=== PATIENT | female | born 1955 | race Caucasian/White ===

== ENCOUNTER → 2019-01-31 | Day surgery (SDC) | payer OTHER ==
[~2019-01-31] MED LIST: AMBIEN10 MG PO; BUPIVACAINE 0.25% 30ML SDV INJ ONE; CALCIUM500 MG PO; FENTANYL CITRATE/PF 100MCG/2 ML INJ ONE; IOPAMIDOL 200 MG/ML 20 ML VIAL IT ONE; LIDOCAINE HCL 1% 30ML-PF VIAL ONE; MIDAZOLAM HCL 2 MG/2 ML VIAL ONE; OXYCODONE-ACET1 EAC3 PO; PERCOCET; PREMARIN0.625 MG PO; PROPOFOL IV EMULSION 10 MG/ML 20 ML VIAL ONE; REMERON30 MG PO; SYNTHROID75 MCG PO; TOPIRAMATE50 MG PO; ULTRAM50 MG PO; VIIBRYD10 MG PO; VITAMIN D35000 UNIT PO; VITAMIN E1000 UNI1 PO; XANAX0.5 MG PO
--- OUTSIDE RECORDS SUMMARY | 2019-01-31 05:27 | XMS REPORT | Clinical Summary ---
Author Author [facility] Address Unknown Phone Unavailable Care Team Providers Care Software Systems Architect Name Role Phone Asked, No Pcp PCP Unavailable Allergies Comments Active Allergy Reactions Severity Noted Date Does not work; hallucinate Morphine High 06/01/2018 Medications End Date Status Medication Sig Dispensed Refills Start Date Active carisoprodol (SOMA) 350 0 MG tablet 8 Active PREMARIN 0.625 mg tablet 0 8 Active fluconazole (DIFLUCAN) 0 150 MG tablet 8 Active levothyroxine (SYNTHROID, 0 LEVOXYL) 75 mcg tablet 8 Active metFORMIN XR 0 (GLUCOPHAGE-XR) 500 mg 24 8 hr tablet Active mirtazapine (REMERON) 30 0 MG tablet 8 Active NUCYNTA 50 mg tablet 0 8 Active zolpidem (AMBIEN) 10 mg 0 tablet 8 Active traMADol (ULTRAM) 50 mg 0 tablet 8 Active topiramate (TOPAMAX) 50 0 MG tablet 8 Active buPROPion XL (WELLBUTRIN 0 XL) 150 MG 24 hr tablet 8 Active LORAZepam (ATIVAN) 0.5 MG 0 tablet 8 Active lidocaine (XYLOCAINE) 5 % APPLY 1 TO 2 0 ointment GRAMS THE 8 AFFECTED AREA(S) 3 TO 4 TIMES A DAY Active diflorasone (PSORCON) APPLY 1.5-2 0 0.05 % ointment GRAMS TWICE A 8 DAY TO THE AFFECTED AREA(S) Active diclofenac (VOLTAREN) 1 % APPLY A PEA 0 gel SIZED 8 AMOUNT(0.5 GRAMS) TO THE AFFECTED AREA TWICE DAILY DIRECTED Active hydroCHLOROthiazide See 0 (HYDRODIURIL) 12.5 MG Instructions, 8 tablet TAKE 1 TABLET BY MOUTH DAILY, # 90 tab, 2 Refill(s), Pharmacy: [facility] Active mirtazapine (REMERON) 30 See 0 MG tablet Instructions, 8 TAKE 2 TABLETS BY MOUTH AT BEDTIME, # 180 tab, 2 Refill(s), Pharmacy: [facility] Active topiramate (TOPAMAX) 50 50 mg=1 tab, 0 MG tablet PO, BID, # 8 180 tab, 1 Refill(s), Pharmacy: [facility] Active zolpidem (AMBIEN) 10 mg 10 mg=1 tab, 0 tablet PO, Bedtime, 8 PRN for sleep, X 90 day, # 90 tab, 1 Refill(s) Active ALPRAZolam (XANAX) 0.5 MG 0 tablet 8 Active FLUoxetine (PROzac) 10 MG 0 capsule 8 Active LORAZepam (ATIVAN) 1 MG 0 tablet 8 Active oxyCODone-acetaminophen 0 (PERCOCET) 10-325 mg per 8 tablet Active keTOROlac (TORadol) 10 mg Take one 20 tablet 0 tablet tablet Q6h x 8 5 days. D/C if stomach pain. Take with food 06/11/2018 Discontinued keTOROlac (TORadol) 10 mg 0 tablet 8 06/11/2018 Discontinued oxyCODone-acetaminophen 0 (PERCOCET) 7.5-325 mg per 8 tablet 06/11/2018 Discontinued oxyCODone-acetaminophen 0 (PERCOCET) 10-325 mg per 8 tablet 06/07/2018 Discontinued keTOROlac (TORadol) 10 mg Take one 20 tablet 0 tablet tablet Q6h x 8 5 days. D/C if stomach pain. Take with food 06/12/2018 Discontinued keTOROlac (TORadol) 10 mg Take one 20 tablet 0 tablet tablet Q6h x 8 5 days. D/C if stomach pain. Take with food 06/21/2018 oxyCODone-acetaminophen Take 1 tablet 30 tablet 0 (PERCOCET) 10-325 mg per by mouth 8 tablet every 4 (four) hours as needed for moderate pain for up to 10 days. Max Daily Amount: 6 tablets 06/26/2018 carisoprodol (SOMA) 350 Take 1 tablet 30 tablet 0 MG tablet (350 mg 8 total) by mouth 3 (three) times a day as needed for muscle spasms for up to 14 days. Active Problems Problem Noted Date Arthrofibrosis of knee joint, left 09/04/2018 Reactive depression 07/13/2018 S/P knee surgery 06/07/2018 Left anterior cruciate ligament tear 06/01/2018 Tear of PCL (posterior cruciate ligament) of knee, left, initial encounter 06/01/2018 Tear of MCL (medial collateral ligament) of knee, left, initial encounter 06/01/2018 Tear of medial meniscus of left knee, current 06/01/2018 Dislocation of left patella 06/01/2018 Encounters Care Team Description Date Type Specialty Mayank Pearson MD S/P knee surgery (Primary Dx); Reactive depression; Arthrofibrosis of knee joint, left; Rupture of anterior cruciate ligament of left knee, subsequent encounter; Tear of PCL (posterior cruciate ligament) of knee, left, initial encounter; Complete tear of medial collateral ligament of knee, left, subsequent encounter; Complex regional pain syndrome type 2 of left lower extremity 01/29/2019 Office Visit Orthopedic Surgery Mayank Pearson MD S/P knee surgery (Primary Dx); Rupture of anterior cruciate ligament of left knee, subsequent encounter; Tear of MCL (medial collateral ligament) of knee, left, initial encounter; Tear of PCL (posterior cruciate ligament) of knee, left, initial encounter; Dislocation of left patella, subsequent encounter; Arthrofibrosis of knee joint, left 12/11/2018 Office Visit Orthopedic Surgery Harrison Cordova PA-C Arthrofibrosis of knee joint, left (Primary Dx); S/P knee surgery; Rupture of anterior cruciate ligament of left knee, subsequent encounter; Tear of PCL (posterior cruciate ligament) of knee, left, subsequent encounter; Tear of MCL (medial collateral ligament) of knee, left, subsequent encounter 10/09/2018 Office Visit Orthopedic Surgery Harrison Cordova PA-C S/P knee surgery (Primary Dx); Arthrofibrosis of knee joint, left; S/P ACL reconstruction 09/21/2018 Office Visit Orthopedic Surgery Harrison Cordova PA-C 09/10/2018 Orders Only Orthopedic Surgery Harrison Cordova PA-C 09/07/2018 Orders Only Orthopedic Surgery Mayank Pearson MD S/P knee surgery (Primary Dx); Arthrofibrosis of knee joint, left; Rupture of anterior cruciate ligament of left knee, subsequent encounter; Tear of MCL (medial collateral ligament) of knee, left, initial encounter; Tear of PCL (posterior cruciate ligament) of knee, left, initial encounter; Dislocation of left patella, subsequent encounter 09/04/2018 Office Visit Orthopedic Surgery Mayank Pearson MD Rupture of anterior cruciate ligament of left knee, subsequent encounter (Primary Dx); Rupture of posterior cruciate ligament of left knee, subsequent encounter; Tear of medial collateral ligament of left knee, subsequent encounter; Other tear of medial meniscus of left knee as current injury, subsequent encounter; Dislocation of left patella, subsequent encounter 08/07/2018 Office Visit Orthopedic Surgery Mayank Pearson MD S/P knee surgery (Primary Dx); Tear of PCL (posterior cruciate ligament) of knee, left, initial encounter; Other tear of medial meniscus of left knee as current injury, subsequent encounter; Rupture of anterior cruciate ligament of left knee, subsequent encounter; Tear of MCL (medial collateral ligament) of knee, left, initial encounter 07/13/2018 Office Visit Orthopedic Surgery Harrison Cordova PA-C 07/05/2018 Orders Only Orthopedic Surgery Harrison Cordova PA-C 07/02/2018 Refill Orthopedic Surgery Harrison Cordova PA-C Lintner, David M., MD S/P knee surgery (Primary Dx); Rupture of anterior cruciate ligament of left knee, subsequent encounter; Tear of MCL (medial collateral ligament) of knee, left, initial encounter; Tear of PCL (posterior cruciate ligament) of knee, left, initial encounter; Other tear of medial meniscus of left knee as current injury, subsequent encounter 06/26/2018 Office Visit Orthopedic Surgery Mayank Pearson MD 06/25/2018 Refill Orthopedic Surgery Harrison Cordova PA-C Rupture of anterior cruciate ligament of left knee, subsequent encounter (Primary Dx); S/P ACL reconstruction; Other tear of medial meniscus of left knee as current injury, subsequent encounter; Dislocation of left patella, subsequent encounter; Tear of MCL (medial collateral ligament) of knee, left, subsequent encounter; Tear of PCL (posterior cruciate ligament) of knee, left, subsequent encounter 06/12/2018 Office Visit Orthopedic Surgery Harrison PA-C 06/11/2018 Orders Only Orthopedic Surgery Robb Palma MD 06/07/2018 Anesthesia Orthopedic Surgery Event Mayank Pearson MD LEFT KNEE ARTHROSCOPY, MCL REPAIR, ACL RECONSTRUCTION, PCL REPAIR, MPFL REPAIR, MEDIAL MENICUS REPAIR 06/07/2018 Surgery Orthopedic Surgery Mayank Pearson MD S/P knee surgery (Primary Dx) 06/07/2018 Hospital Orthopedic Surgery - Encounter 06/11/2018 Harrison Cordova PA-C 06/07/2018 Orders Only Orthopedic Surgery Harrison Cordova PA-C 06/07/2018 Orders Only Orthopedic Surgery Mayank Pearson MD 06/01/2018 Hospital Radiology Encounter Mayank Pearson MD Rupture of anterior cruciate ligament of left knee, initial encounter (Primary Dx); Tear of PCL (posterior cruciate ligament) of knee, left, initial encounter; Tear of MCL (medial collateral ligament) of knee, left, initial encounter; Other tear of medial meniscus of left knee as current injury, initial encounter; Dislocation of left patella, initial encounter 06/01/2018 Office Visit Orthopedic Surgery after 01/30/2018 Social History Date Tobacco Use Types Packs/Day Years Used Never Smoker Smokeless Tobacco: Never Used Sex Assigned at Date Recorded Not on file Industry Job Start Date Occupation Not on file Not on file Not on file Travel End Travel History Travel Start No recent travel history available. Last Filed Vital Signs Time Taken Vital Sign Reading 06/11/2018 7:53 AM CDT Blood Pressure 135/69 06/11/2018 7:53 AM CDT Pulse 64 06/11/2018 7:53 AM CDT Temperature 36.5 C (97.7 F) 06/11/2018 7:53 AM CDT Respiratory Rate 16 06/11/2018 7:53 AM CDT Oxygen Saturation 97% - Inhaled Oxygen - Concentration 06/01/2018 8:42 AM CDT Weight 77.1 kg (170 lb) 06/07/2018 8:10 AM CDT Height 157.5 cm (5' 2") 06/01/2018 8:42 AM CDT Body Mass Index 31.09 Plan of Treatment Care Team Description Date Type Specialty Mayank Pearson MD [address] [id number] Edita Cid 02/04/2019 Office Visit Physical Therapy Mayank Pearson MD [address] [address] [phone] Edita Cid 02/08/2019 Office Visit Physical Therapy Mayank Pearson MD [address] [address] [phone] Edita Cid 02/11/2019 Office Visit Physical Therapy Mayank Pearson MD [address] [address] [phone] Edita Cid 02/15/2019 Office Visit Physical Therapy Mayank Pearson MD [address] [address] [phone] Edita Cid 02/22/2019 Office Visit Physical Therapy Health Maintenance Due Date Last Done Comments CERVICAL CANCER SCREENING 01/12/1977 BREAST CANCER SCREENING 01/12/2006 COLON CANCER SCREENING 01/12/2006 SHINGLES VACCINES (#1) 01/12/2006 INFLUENZA VACCINE 04/25/2019 Implants Device Identifier Shelf Expiration Date Model / Serial / Lot Implanted Type Area Manufactur er 10/16/2022 [id number] / [id number] / LOT NA Tendon Achls Allograft Leader W/ Human Left: Knee MUSCULOSKE Clcns 19.5-38cm 10-20mm - Tissue LETAL [id number] - [id number] Implants TRANSPLANT Implanted: Qty: 1 on 06/07/2018 by [facility] Mayank Pearson MD 02/22/2023 AR [id number] / / [id number] Suture [place], [employer]w - IPM Left: Knee ARTHREX [id number] IMPLANT ORTHOPEDIC Implanted: Qty: 1 on 06/07/2018 by DEVICES S Mayank Pearson MD 10/18/2022 [id number] / / [id number] Screw Intrfrnce Plla Cordova 7x20mm Orthopedic Left: Knee ORDONEZ AND Biosure - [id number] Trauma NEPHEW Implanted: Qty: 1 on 06/07/2018 by Implants ENDOSCOPY Mayank Pearson MD 09/24/2019 AR [id number] / / [id number] Suture [place] Dbl Loaded Biocomp Orthopedic Left: Knee ARTHREX Swvlk 4.75mm X 22mm - [id number] INC Implanted: Qty: 1 on 06/07/2018 by Mayank Mays MD 09/24/2022 AR [id number] / / [id number] Screw Tib 9mm Graftbolt - Orthopedic Left: Knee ARTHREX [id number] INC Implanted: Qty: 1 on 06/07/2018 by Mayank Mays MD Procedures Comments Procedure Name Priority Date/Time Associated Diagnosis XR KNEE 1 OR 2 VW LEFT Routine 06/12/2018 Rupture of anterior 2:06 PM CDT cruciate ligament of left knee, subsequent encounter THYROID STIMULATING Routine 06/08/2018 HORMONE 7:33 PM CDT T4, FREE Routine 06/08/2018 7:33 PM CDT POC GLUCOSE Routine 06/07/2018 1:05 PM CDT WA AN ELECTIVE Routine 06/07/2018 ENDOTRACHEAL AIRWAY 10:13 AM CDT Procedure Note - Robb Boss, INTERNAL CONTROLS ANALYST - 06/07/2018 10:13 AM CDT Airway Date/Time: 06/07/2018 10:00 AM Performed by: ROBB BOSS Authorized by: ROBB PALMA Location: OR Urgency: Elective Difficult Airway: No Anesthesio logist: ROBB PALMA Resident/C RNA/AA: ROBB BOSS Performed by: resident/C RNA/AA Preoxygena tor with 100% O2: Yes Mask Ventilatio n: Easy mask Final Airway Type: Endotrache al airway Final Endotrache al Airway: ETT Cuffed: Yes Technique Used: Direct laryngosco py Devices/Me thods Used in Placement: Intubatin g stylet Insertion Site: Oral Blade Type: Guillaume Laryngosco pe Blade/Vide olaryngosc ope Blade Size: 2 ETT Size (mm): 8.0 Cuff at minimum occlusion pressure: Yes Measured from: Teeth ETT to Teeth (cm): 21 Placement Verified by: CO2 detection, direct visualizat ion and equal breath sounds Laryngosco pic view: Grade I - full view of glottis Rapid Sequence Induction (RSI): No Modified RSI: No Number of Attempts at Approach: 1 ANESTHESIA EPIDURAL BLOCK Routine 06/07/2018 9:09 AM CDT Procedure Note - Robb Palma MD - 06/07/2018 9:09 AM CDT Epidural Block Performed by: ROBB PALMA Authorized by: ROBB PALMA Patient Location: Pre-op Start Time: 06/07/2018 9:00 AM End Time: 06/07/2018 9:06 AM Anesthesio logist: ROBB PALMA Performed by: Anesthesio [email or web address] Preprocedu re: patient identified , IV checked, site and side verified, risks and benefits discussed, procedure verified, surgical consent completed, patient position confirmed, monitors and equipment checked and pre-op evaluation completed Time Out Performed: 06/07/2018 8:56 AM Patient Position: Sitting Prep: Betadine Monitoring : Blood pressure monitoring , continuous pulse oximetry and heart rate Approach: Midline Interspace : L2-3 Injection Technique: RAVEN air Needle Type: Tuohy Needle Gauge: 17 Catheter at Skin Depth: 8 cm Test Dose: Negative and lidocaine 1.5% with epinephrin e 1-to-200,0 00 Number of Attempts: 1 Coagulatio n status: Coagulatio n status reviewed Block Outcome: No apparent complicati ons, patient comfortabl e and patient tolerated procedure well Post-proce dure: Sterile dressing applied Time: 06/07/2018 9:00 AM REPAIR, ACL, 06/07/2018 Complete tear of MCL of ARTHROSCOPIC, USING 9:00 AM CDT knee, left, initial PATELLAR TENDON GRAFT encounter Posterior cruciate tear, left, initial encounter Closed dislocation of left patella, initial encounter Case Notes TF ~ 0845, REQ 0800 START, EST 3HRS, POSSIBLE EXTENDED STAY, "SURG REQ EPIDURAL", @0907 VIA LUKE/PRISCILA SURG START TIME ~ 0845 06/06/18TW Special Needs TF ~ 0845, REQ 0800 START, EST 3HRS, POSSIBLE EXTENDED STAY, "SURG REQ EPIDURAL", ACHILLES ALLOGRAFT, SEMI T ALLOGRAFT POC GLUCOSE Routine 06/07/2018 8:34 AM CDT MRI LOWER EXTREMITY Routine 05/25/2018 EXTERNAL STUDY 2:33 PM CDT after 01/30/2018 Results * XR Knee 1 Or 2 Vw Left (06/12/2018 2:06 PM CDT) Narrative Performed At [facility] Tunnels in good position Performing Organization Address [facility] Number [facility] [address] [place] [address] * Thyroid stimulating hormone (06/08/2018 7:33 PM CDT) TSH 6.05 (H) 0.27 - 4.20 uIU/mL [facility] DEPARTMENT OF PATHOLOGY AND GENOMIC MEDICINE Specimen Plasma specimen Performing Organization Address [facility] [place] [address] PATHOLOGY AND [facility] MEDICINE * T4, free (06/08/2018 7:33 PM CDT) T4, free 1.6 0.9 - 1.7 ng/dL [facility] DEPARTMENT OF PATHOLOGY AND GENOMIC MEDICINE Specimen Plasma specimen Performing Organization Address [facility] [place] [address] PATHOLOGY AND [facility]ICINE * POC glucose (06/07/2018 1:05 PM CDT) Only the most recent of 2 results within the time period is included. POC glucose 173 (H) 65 - 99 mg/dL [facility] DEPARTMENT OF Comment: PATHOLOGY AND [facility] Notified RN GENOMIC MEDICINE Meter ID: [id number] [employer]: [place] Performing Organization Address [facility] [place] [address] PATHOLOGY AND GENOMIC MEDICINE * MRI Lower Extremity External Study (05/25/2018 2:33 PM CDT) Narrative Performed At This exam was not acquired at a [facility] facility and has not been [facility] interpreted by a [facility] Provider.The exam was imported into our imaging system for comparisons purposes. Performing Organization Address City/State/Zipcode Phone Number [facility] [address] [place] [address] after 01/30/2018 Insurance Payer Benefit Subscriber ID Type Phone Address Plan / Group CIGNA CIGNA OPEN xxxxxxxxxxx HMO ACCESS/NET WORK Advance Directives Patient has advance care planning documents on file. For more information, truong gutierrez contact: Carlyle Huang [address] [place] [address]
--- OUTSIDE RECORDS SUMMARY | 2019-01-31 05:28 | XMS REPORT | Summary of Care ---
Author Author [facility] [place] Organization [facility] [place] Address Unknown Phone Unavailable Encounter HQ Merryr_phil(FIN) [id number] Date(s): 06/29/18 - 06/30/18 [facility] [place] [address] [facility] [address] [place] [address]- [phone] Vital Signs No data available for this section Problem List Condition Effective Dates Status Health Status Informant Acute maxillary 07/09/12 Resolved sinusitis1 Acute pharyngitis2 08/26/10 Resolved Acute sinusitis3 09/15/09 Resolved 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 Depressive disorder5 Active Dyslipidemia6 07/17/07 Active Exposure to sexually 08/13/09 Resolved transmissible disorder7 Fatigue8 11/07/13 Active Gastroenteritis9 01/27/09 Resolved Gastroesophageal Active reflux Hematoma(Confirmed) Active Jaw Active hematoma(Confirmed) Hypercholesterolemia 01/05/12 Active 11 Bdlmbfuvdsvcr49 05/28/14 Active Hypertensive 03/30/15 Active Hypertriglyceridemia 03/30/15 Active 14 Hypothyroid(Confirme Active d) Xkvozhtwmfdiqy40 05/13/08 Active Impaired fasting 08/13/09 Active qdkizpomk56 Jktohaqum08 12/09/10 Resolved Injury of hand18 09/22/14 Active Hocawyeu87 05/01/07 Active Long-term drug 05/13/08 Active xbrfhoe93 Malaise and 05/13/08 Active cutidzb71 Menopausal 01/27/09 Active Murmur(Confirmed) Active Obesity(Confirmed) Active Bwqjgsu26 12/07/07 Resolved Staphylococcal 05/13/08 Resolved infectious jofqzhn27 Streptococcal sore 12/07/07 Resolved leotse88 Contusion of Active hip(Confirmed) Upper respiratory 07/17/07 Resolved zbogqgobv46 Urinary tract 12/29/10 Resolved infectious jteuouf67 Nffpjdnv06 12/09/10 Resolved 1Data migrated from [employer] on 04/11/15. 2Data migrated from [employer] on 04/11/15. 3Data migrated from [employer] on 04/11/15. 4Data migrated from [employer] on 02/21/15. 5Data migrated from [employer] on 02/21/15. 6Data migrated from [employer] on 02/21/15. 7Data migrated from [employer] on 04/11/15. 8Data migrated from [employer] on 02/21/15. 9Data migrated from [employer] on 04/11/15. 10Data migrated from [employer] on 02/21/15. 11Data migrated from [employer] on 02/21/15. 12Data migrated from [employer] on 02/21/15. 13Data migrated from [employer] on 04/29/15. 14Data migrated from [employer] on 04/29/15. 15Data migrated from [employer] on 02/21/15. 16Data migrated from [employer] on 02/21/15. 17Data migrated from [employer] on 04/11/15. 18Data migrated from [employer] on 02/21/15. 19Data migrated from [employer] on 02/21/15. 20Data migrated from [employer] on 02/21/15. 21Data migrated from [employer] on 02/21/15. 22Data migrated from [employer] on 02/21/15. 23Data migrated from [employer] on 04/11/15. 24Data migrated from [employer] on 04/10/15. 25Data migrated from [employer] on 04/11/15. 26Data migrated from [employer] on 04/11/15. 27Data migrated from [employer] on 04/11/15. 28Data migrated from [employer] on 04/11/15. Allergies, Adverse Reactions, Alerts Substance Reaction Severity Status morphine1 Active 1Data migrated from [employer] on 01/20/15. Originally documented as MORPHINE. Dermatological problems, e.g., rash, hives ; SOB Medications No data available for this section Results No data available for this section Immunizations Given and Recorded Vaccine Date Status Refusal Reason Hx hepatitis B vaccine1 04/14/10 Given Hx hepatitis B vaccine2 08/14/09 Given diphtheria/pertussis, acel/tetanus adult3 08/13/09 Given tetanus-diphtheria toxoids4 08/13/09 Given pneumococcal 23-valent vaccine 06/15/06 Given 1Result Comment: engerix. Migrated from OBS ; Data migrated from [employer] on 10/26/2015. 2Result Comment: recombivaxhb. Migrated from OBS ; Data migrated from [employer] on 10/26/2015. 3Result Comment: tdap. Migrated from OBS ; Data migrated from [employer] on 10/26/2015. 4Result Comment: tdap. Migrated from OBS VIS: 08-12-08 given August 13, 2009. ; Data migrated from [employer] on 10/26/2015. Procedures Procedure Date Related Diagnosis Body Site Status Breast biopsy and related procedures Completed Cholecystectomy Completed Hysterectomy Completed Laparoscopic sleeve gastrectomy Completed Tonsillectomy Completed Social History Social History Type Response Smoking Status Former smoker; Exposure to Tobacco Smoke None; Cigarette Smoking Last 365 Days No; Reg Smoking Cessation Counseling No entered on: 12/13/18 Assessment and Plan No data available for this section
--- OUTSIDE RECORDS SUMMARY | 2019-01-31 05:28 | XMS REPORT | Continuity of Care Document ---
Author Author [facility] Interface Address Unknown Phone Unavailable Problems Problem Status Onset Date Classification Date Reported Comments Source Other abnormal and inconclusive findings on diagnostic imaging of breast 04/27/2018 11/07/2018 RENETTA Hernandez Encounter for screening mammogram for malignant neoplasm of breast 04/14/2018 10/27/2018 AZUL Horn DX: Z12.31=ENCOUNTER FOR SCREENING MAMMO Active 01/09/2017 [facility] Hypertensive episode<sup>13</sup> Active 03/30/2015 Problem 01/27/2019 Data migrated from [employer] on 04/29/15. [facility], AZUL Horn,[facility] [place] Hypertriglyceridemia<sup>14</sup> Active 03/30/2015 Problem 01/27/2019 Data migrated from [employer] on 04/29/15. [facility], AZUL Horn,[facility], [place] Injury of hand<sup>10</sup> Active 09/22/2014 Problem 04/02/2015 10Data migrated from [employer] on 02/21/15. AZUL Hernandez Injury of hand<sup>18</sup> Active 09/22/2014 Problem 01/27/2019 Data migrated from [employer] on 02/21/15. [facility], AZUL Horn,[facility], OPID [place] Hyperglycemia<sup>7</sup> Active 05/28/2014 Problem 04/02/2015 7Data migrated from [employer] on 02/21/15. AZUL Hernandez Hyperglycemia<sup>12</sup> Active 05/28/2014 Problem 01/27/2019 Data migrated from [employer] on 02/21/15. [facility], AZUL Horn,[facility], AZUL Hernandez ROUTINE Active 02/11/2014 [facility] V76.10 PELVIC PAIN Active 02/11/2014 [facility] UNK Active 11/26/2013 [facility] Fatigue<sup>4</sup> Active 11/07/2013 Problem 04/02/2015 4Data migrated from [employer] on 02/21/15. [facility] [place] Fatigue<sup>8</sup> Active 11/07/2013 Problem 01/27/2019 Data migrated from [employer] on 02/21/15. [facility], SUSSYD Kory, [facility], [facility] [place] Acute maxillary sinusitis<sup>1</sup> Resolved 07/09/2012 Problem 01/27/2019 Data migrated from [employer] on 04/11/15. [facility], OPID K[place], [facility], [facility] [place] Hypercholesterolemia<sup>6</sup> Active 01/05/2012 Problem 04/02/2015 6Data migrated from [employer] on 02/21/15. [facility] [place] Hypercholesterolemia<sup>11</sup> Active 01/05/2012 Problem 01/27/2019 Data migrated from [employer] on 02/21/15. [facility], OPID Kory, [place], [facility] [place] Benign tumor of breast<sup>1</sup> Active 02/09/2011 Problem 04/02/2015 1Data migrated from [employer] on 02/21/15. [facility] [place] Benign tumor of breast<sup>4</sup> Active 02/09/2011 Problem 01/27/2019 Data migrated from [employer] on 02/21/15. [facility], SUSSYD Kory, [facility], [facility] [place] Urinary tract infectious disease<sup>27</sup> Resolved 12/29/2010 Problem 01/27/2019 Data migrated from [employer] on 04/11/15. [facility], OPID K[place], [facility], [facility] [place] Influenza<sup>17</sup> Resolved 12/09/2010 Problem 01/27/2019 Data migrated from [employer] on 04/11/15. [facility], OPID Kory, [facility], [facility] [place] Vomiting<sup>28</sup> Resolved 12/09/2010 Problem 01/27/2019 Data migrated from [employer] on 04/11/15. [facility], SUSSYD Kory, [facility], [facility] [place] Acute pharyngitis<sup>2</sup> Resolved 08/26/2010 Problem 01/27/2019 Data migrated from [employer] on 04/11/15. [facility], AZUL Horn, [facility], [facility] [place] Acute sinusitis<sup>3</sup> Resolved 09/15/2009 Problem 01/27/2019 Data migrated from [employer] on 04/11/15. [facility], AZUL Horn, [facility], [facility] [place] Impaired fasting glycaemia<sup>9</sup> Active 08/13/2009 Problem 04/02/2015 9Data migrated from [employer] on 02/21/15. AZUL Segovialand Exposure to sexually transmissible disorder<sup>7</sup> Resolved 08/13/2009 Problem 01/27/2019 Data migrated from [employer] on 04/11/15. Medical [facility], AZUL Horn,[facility], [facility] [place] Impaired fasting glycaemia<sup>16</sup> Active 08/13/2009 Problem 01/27/2019 Data migrated from [employer] on 02/21/15. [facility], AZUL Horn, [facility], [facility] [place] Menopausal syndrome<sup>14</sup> Active 01/27/2009 Problem 04/02/2015 14Data migrated from [employer] on 02/21/15. AZUL Segovialand Gastroenteritis<sup>9</sup> Resolved 01/27/2009 Problem 01/27/2019 Data migrated from [employer] on 04/11/15. [facility], AZUL Horn, [facility], [facility] [place] Menopausal syndrome<sup>22</sup> Active 01/27/2009 Problem 01/27/2019 Data migrated from [employer] on 02/21/15. [facility], AZUL Horn, [facility], [facility] [place] Hypothyroidism<sup>8</sup> Active 05/13/2008 Problem 04/02/2015 8Data migrated from [employer] on 02/21/15. AZUL Segovialand Long-term drug therapy<sup>12</sup> Active 05/13/2008 Problem 04/02/2015 12Data migrated from [employer] on 02/21/15. [facility] [place] Malaise and fatigue<sup>13</sup> Active 05/13/2008 Problem 04/02/2015 13Data migrated from [employer] on 02/21/15. [facility] [place] Hypothyroidism<sup>15</sup> Active 05/13/2008 Problem 01/27/2019 Data migrated from [employer] on 02/21/15. [facility], OPID K[place], [facility], [facility] [place] Long-term drug therapy<sup>20</sup> Active 05/13/2008 Problem 01/27/2019 Data migrated from [employer] on 02/21/15. [facility], OPID K[place], [facility], [facility] [place] Malaise and fatigue<sup>21</sup> Active 05/13/2008 Problem 01/27/2019 Data migrated from [employer] on 02/21/15. [facility], OPID K[place], [facility], [facility] [place] Staphylococcal infectious disease<sup>24</sup> Resolved 05/13/2008 Problem 01/27/2019 Data migrated from [employer] on 04/10/15. [facility], OPID [place], [facility], [facility] [place] Otalgia<sup>23</sup> Resolved 12/07/2007 Problem 01/27/2019 Data migrated from [employer] on 04/11/15. [facility], SUSSYD Kory, [facility], [facility] [place] Streptococcal sore throat<sup>25</sup> Resolved 12/07/2007 Problem 01/27/2019 Data migrated from [employer] on 04/11/15. [facility], OPID K[place], [facility], [facility] [place] Dyslipidemia<sup>3</sup> Active 07/17/2007 Problem 04/02/2015 3Data migrated from [employer] on 02/21/15. [facility] [place] Dyslipidemia<sup>6</sup> Active 07/17/2007 Problem 01/27/2019 Data migrated from [employer] on 02/21/15. [facility], OPID K[place], [place], [facility] [place] Upper respiratory infection<sup>26</sup> Resolved 07/17/2007 Problem 01/27/2019 Data migrated from [employer] on 04/11/15. [facility], OPID [place], [facility], [facility] [place] Insomnia<sup>11</sup> Active 05/01/2007 Problem 04/02/2015 11Data migrated from [employer] on 02/21/15. [facility] [place] Insomnia<sup>19</sup> Active 05/01/2007 Problem 01/27/2019 Data migrated from [employer] on 02/21/15. [facility], OPID [place], [facility], [facility] [place] Hypothyroid Active Problem 10/27/2018 [facility], [facility] [place] Murmur Active Problem 10/27/2018 [facility], [facility] [place] Depressive disorder<sup>2</sup> Active Problem 04/02/2015 2Data migrated from [employer] on 02/21/15. [facility] [place] Gastroesophageal reflux disease<sup>5</sup> Active Problem 04/02/2015 5Data migrated from [employer] on 02/21/15. [facility] [place] Hypothyroid Active Problem 11/07/2018 [facility], [facility] [place] Murmur Active Problem 11/07/2018 [facility], [facility] [place] Depressive disorder<sup>5</sup> Active Problem 01/27/2019 Data migrated from [employer] on 02/21/15. [facility], OPID [place], [facility], [facility] [place] Gastroesophageal reflux disease<sup>10</sup> Active Problem 01/27/2019 Data migrated from [employer] on 02/21/15. [facility], OPID [place], [facility], [facility] [place] Hematoma Active Problem 01/27/2019 [facility], OPID [place], [facility] [place] Jaw hematoma Active Problem 01/27/2019 [facility], OPID [place], [facility] [place] Hypothyroid Active Problem 01/27/2019 [facility] Murmur Active Problem 01/27/2019 [facility] Obesity Active Problem 01/27/2019 [facility], OPID [place], [facility], [facility] [place] Contusion of hip Active Problem 01/27/2019 [facility], [facility] [place] [place] Mammographic calcification found on diagnostic imaging of breast 11/07/2018 [facility] [place] LT HAND Active [facility] Medications Medication Details Route Status Patient Instructions Ordering Provider Order Date Source vilazodone hydrochloride 10 MG Oral Tablet [Viibryd] 10 mg=1 tab, PO, Daily, # 30 tab, 2 Refill(s), Pharmacy: [facility] Active 12/21/2018 [facility] Alprazolam 0.5 MG Oral Tablet [Xanax] 0.5 mg=1 tab, PO, TID, X 30 day, # 90 tab, 1 Refill(s) Active 12/13/2018 [facility] Acetaminophen 325 MG / Oxycodone Hydrochloride 10 MG Oral Tablet [Percocet 10/325] 1 tab, PO, Q8H, PRN Pain, 12/13/2018, X 30 day, # 90 tab, 0 Refill(s) Active 12/13/2018 [facility] zolpidem 10 mg oral tablet 10 mg=1 tab, PO, Bedtime, X 30 day, # 30 tab, 5 Refill(s) Active 12/13/2018 [facility] vilazodone hydrochloride 10 MG Oral Tablet [Viibryd] 10 mg=1 tab, PO, Daily, # 30 tab, 2 Refill(s), Pharmacy: [place] [address] Active 12/13/2018 [facility] mirtazapine 30 mg oral tablet =2 tab, PO, Bedtime, # 180 tab, Refill(s) 3, Pharmacy: [facility] Active 12/03/2018 [facility] Alprazolam 0.5 MG Oral Tablet [Xanax] 0.5 mg=1 tab, PO, TID, X 10 day, # 30 tab, 0 Refill(s) No Longer Active 07/09/2018 [facility] Fluoxetine 10 MG Oral Capsule [Prozac] 10 mg=1 cap, PO, Daily, X 30 day, # 30 cap, 1 Refill(s), Pharmacy: [place] [address] No Longer Active 07/05/2018 [facility] Lorazepam 1 MG Oral Tablet [Ativan] 1 mg=1 tab, PO, TID, X 30 day, # 90 tab, 1 Refill(s) No Longer Active 07/05/2018 [facility] 24 HR Bupropion Hydrochloride 150 MG Extended Release Tablet [Wellbutrin] 150 mg=1 tab, PO, Daily, please do not do the prozac, # 30 tab, 1 Refill(s), Pharmacy: [place] [address] No Longer Active 06/21/2018 Medical [facility] Fluoxetine 10 MG Oral Capsule [Prozac] 10 mg=1 cap, PO, Daily, X 30 day, # 30 cap, 1 Refill(s), Pharmacy: [place] [address] No Longer Active 06/21/2018 [facility] Lorazepam 0.5 MG Oral Tablet [Ativan] 0.5 mg=1 tab, PO, TID, X 30 day, # 90 tab, 0 Refill(s) No Longer Active 06/21/2018 [facility] Acetaminophen 325 MG / Oxycodone Hydrochloride 10 MG Oral Tablet [Percocet 10/325] 1 tab, PO, Q8H, PRN Pain, 06/04/2018--excemption--patient going for surgery, X 30 day, # 90 tab, 0 Refill(s) No Longer Active 06/04/2018 [facility] Benadryl 0 Refill(s) Active 06/01/2018 [facility] Carisoprodol 350 MG Oral Tablet [Soma] 350 mg=1 tab, PO, Q8H, # 21 tab, 0 Refill(s) No Longer Active 06/01/2018 [facility] Acetaminophen 325 MG / Oxycodone Hydrochloride 10 MG Oral Tablet [Percocet 10/325] 1 tab, PO, Q8H, PRN Pain, # 90 tab, 0 Refill(s) No Longer Active 06/01/2018 [facility] zolpidem 10 mg oral tablet 10 mg=1 tab, PO, Bedtime, X 30 day, # 30 tab, 3 Refill(s) No Longer Active 05/18/2018 [facility] {6 (Azithromycin 250 MG Oral Tablet [Zithromax]) } Pack [Z-PAKS] See Instructions, Take 2 tablets by mouth the first day then 1 tablet by mouth days 2-5., X 5 day, # 6 tab, 0 Refill(s), Pharmacy: [place] [address] No Longer Active 10/31/2017 [facility] hydrochlorothiazide 12.5 mg oral tablet See Instructions, TAKE 1 TABLET BY MOUTH DAILY, # 90 tab, 2 Refill(s), Pharmacy: [facility] Active 10/31/2017 [facility] metFORMIN 500 mg oral tablet, extended release 500 mg=1 tab, PO, BID-Meals, X 90 day, # 180 tab, 3 Refill(s), Pharmacy: [facility] No Longer Active 10/31/2017 [facility] mirtazapine 30 mg oral tablet See Instructions, TAKE 2 TABLETS BY MOUTH AT BEDTIME, # 180 tab, 2 Refill(s), Pharmacy: [facility] Active 10/31/2017 [facility] topiramate 50 mg oral tablet 50 mg=1 tab, PO, BID, # 180 tab, 1 Refill(s), Pharmacy: [facility] Active 10/31/2017 [facility] Zolpidem tartrate 10 MG Oral Tablet [Ambien] 10 mg=1 tab, PO, Bedtime, PRN for sleep, X 90 day, # 90 tab, 1 Refill(s) Active 10/31/2017 [facility] Zolpidem tartrate 10 MG Oral Tablet [Ambien] 10 mg=1 tab, PO, Bedtime, PRN for sleep, X 30 day, # 30 tab, 0 Refill(s) Inactive 10/31/2017 [facility] Zolpidem tartrate 10 MG Oral Tablet [Ambien] 10 mg=1 tab, PO, Bedtime, PRN for sleep, 0 Refill(s) Inactive 10/31/2017 [facility] Allergies, Adverse Reactions, Alerts Substance Category Reaction Severity Reaction type Status Date Reported Comments Source morphine<sup>1</sup> Assertion Drug allergy Active 05/01/2007 1Data migrated from [employer] on 01/20/15. Originally documented as MORPHINE. Dermatological problems, e.g., rash, hives ; SOB AZUL Hernandez morphine Assertion Drug allergy Active AZUL Horn Immunizations Immunization Date Given Site Status Last Updated Comments Source Hx hepatitis B vaccine<sup>1</sup> 04/14/2010 completed GE Result Comment: engerix. Migrated from OBS ; Data migrated from [employer] on 10/26/2015. [facility], AZUL Horn, AZUL Hernandez Hx hepatitis B vaccine<sup>2</sup> 04/14/2010 completed GE Result Comment: engerix. Migrated from OBS ; Data migrated from [employer] on 10/26/2015. [facility]<sup>2</sup> 08/14/2009 Left Deltoid completed GE Result Comment: recombivaxhb. Migrated from OBS ; Data migrated from [employer] on 10/26/2015. Medical [facility], AZUL Horn,[facility] [place] Hx hepatitis B vaccine<sup>3</sup> 08/14/2009 Left Deltoid completed GE Result Comment: recombivaxhb. Migrated from OBS ; Data migrated from [employer] on 10/26/2015. AZUL Horn [place] diphtheria/pertussis, acel/tetanus adult<sup>3</sup> 08/13/2009 completed GE Result Comment: tdap. Migrated from OBS ; Data migrated from [employer] on 10/26/2015. Medical [facility], AZUL Horn,[facility] [place] diphtheria/pertussis, acel/tetanus adult<sup>1</sup> 08/13/2009 completed GE Result Comment: tdap. Migrated from OBS ; Data migrated from [employer] on 10/26/2015. AZUL Horn [place] tetanus-diphtheria toxoids<sup>4</sup> 08/13/2009 Left Deltoid completed GE Result Comment: tdap. Migrated from OBS VIS: 08-12-08 given August 13, 2009. ; Data migrated from [employer] on 10/26/2015. Medical [facility], AUZL Horn,[facility] [place] pneumococcal 23-valent vaccine 06/15/2006 Right upper arm completed Jenae [facility] AZUL Horn pneumococcal 23-valent vaccine 06/15/2006 Right [facility] 06/15/2006 Right upper arm completed Jenae Nash, Medical [facility] Results Order Name Results Value Reference Range Date Interpretation Comments Source Breast Mammo Diag UNI incl CAD MA Breast Mammo Diag UNI incl CAD MA UNILATERAL RIGHT DIGITAL DIAGNOSTIC MAMMOGRAM WITH CAD: 04/20/2018 CLINICAL: /R92.8 Abnormal Mammogram. Current study was evaluated with a Computer Aided Detection (CAD) system. COMPARISON:Comparison is made to exams dated: 04/09/2018 mammogram - [facility], 2017 mammogram - [facility], 03/30/2015 mammogram - [facility], 02/14/2014 mammogram, and 03/05/2013 mammogram - [facility]. TECHNIQUE: Mammographic views were obtained using digital acquisition. Current study was also evaluated with a Computer Aided Detection (CAD) system. FINDINGS: There are scattered fibroglandular densities in right breast. There are 2 cm grouped round calcifications in the right breast at 12 o'clock middle depth 7 cm from the nipple. These have not changed significantly in number or distribution since the prior mammogram, benign findings. No other significant masses or calcifications are seen in the breast. IMPRESSION: BENIGN RECOMMENDATION:The 2 cm grouped round calcifications in the right breast are benign. There is no mammographic evidence of malignancy. A 1 year screening mammogram is recommended.(04/21/2019) This exam was interpreted at [id number] for ROMI Back 15. Professional services are provided by the [facility] M.D. [facility] Division of Diagnostic Imaging. Mateo Robert M.D. cm/penrad:04/20/2018 08:13:53 Industrial Relations Director(s): Luh Torres [facility] letter sent: BI-RADS 1/2 Mammogram BI-RADS: 2 Benign 04/20/2018 - - Read by: Edward De La Rosa MD Dictated Date/time: 04/20/18 08:13 Electronically Signed by: Edward De La Rosa MD 04/20/18 08:13 FINAL REPORT RENETTA Hernandez Breast Mammo Scrn HANK incl CAD MA Breast Mammo Scrn HANK incl CAD MA BILATERAL DIGITAL SCREENING MAMMOGRAM WITH CAD: 04/09/2018 CLINICAL: /Routine. Current study was evaluated with a Computer Aided Detection (CAD) system. COMPARISON:Comparison is made to exams dated: 2017 mammogram - [facility], 03/30/2015 mammogram - [facility], and 02/14/2014 mammogram - [facility]. TECHNIQUE: Mammographic views were obtained using digital acquisition. Current study was also evaluated with a Computer Aided Detection (CAD) system. FINDINGS: There are scattered fibroglandular densities in both breasts. There is a cluster of calcifications in the right breast at 12 o'clock middle depth 8 cm from the nipple. No other significant masses, calcifications, or other findings are seen in either breast. IMPRESSION: INCOMPLETE: NEEDS ADDITIONAL IMAGING EVALUATION RECOMMENDATION:The cluster of calcifications in the right breast is indeterminate. Spot magnification views are recommended. This exam was interpreted at [id number] at [facility] Location. Professional [facility]. Aleja Carballo M.D. /penrad:04/09/2018 15:44:49 Industrial Relations Director(s): Daniella Roman [facility] letter sent: BI-RADS 0 Mammogram BI-RADS: 0 Indeterminate 04/09/2018 - - Read by: Aleja Carballo MD Dictated Date/time: 04/09/18 15:44 Electronically Signed by: Aleja Carballo MD 04/09/18 15:44 FINAL REPORT [facility] Ext Lower non vascular US Ext Lower non vascular US REASON FOR EXAM: R22.41. Mass of right thigh. Note: The patient reports a fall 3 weeks previously. COMPARISON: None. FINDINGS: Nonvascular ultrasound of the right thigh was performed at the location of the patient's symptoms. Static images are submitted. In this location there is an approximately 10.3 x 2.7 x 5.7 cm hypoechoic collection in the soft tissues of the right thigh located between 2.2 cm and 4.4 cm deep to the skin surface. There are mild scattered foci of intermediate echogenicity within the hypoechoic collection. There is no demonstrable internal vascularity by color flow analysis. Given the history of a recent injury the primary consideration is a hematoma. A cystic lesion is considered less likely. An abscess is considered unlikely. There is no additional sonographic abnormality on the submitted images. IMPRESSION: There is a 10.3 cm collection in the deep soft tissues of the right thigh at the location of the patient's symptoms. The primary consideration is a hematoma. If desired further evaluation may be obtained with an unenhanced and enhanced MRI of the right thigh. SL: 16 04/20/2017 - - Read by: Beni Bagley MD Dictated Date/time: 04/20/17 11:58 Electronically Signed by: Beni Bagley MD 04/20/17 12:10 FINAL REPORT AZUL Horn Hip 2/3 views uni DX Hip 2/3 views uni DX Pelvis pelvis Study: Hip 2/3 views uni DX 04/08/2017 10:07 AM CDT Ordering Physician: Judy Jacques MD Clinical Indication: Right hip pain and bruising status post fall. Comparison: None FINDINGS: AP radiograph of the pelvis with AP and frog-leg lateral views of the right hip demonstrate no evidence for fracture or dislocation. The pelvic and obturator rings are intact. The pubic rami are intact. The symphysis pubis and sacroiliac joints are unremarkable. The visualized sacral foramina are intact. The hip joint spaces, proximal femoral regions and acetabular regions are unremarkable. If there is further concern, recommend follow-up radiographs or bone scan for complete assessment. IMPRESSION: Unremarkable AP radiograph of the pelvis with frog-leg lateral and AP views of the right hip. SL: [id number] 04/08/2017 - - Read by: Jaymie Ansari MD Dictated Date/time: 04/08/17 10:16 Electronically Signed by: Jaymie Ansari MD 04/08/17 10:17 FINAL REPORT [facility] Breast Mammo Scrn HANK incl CAD MA Breast Mammo Scrn HAKN incl CAD MA - BREAST MAMMO SCRN HANK INCL CAD MA BILATERAL DIGITAL SCREENING MAMMOGRAM WITH CAD: 2017 CLINICAL: Routine. Current study was evaluated with a Computer Aided Detection (CAD) system. Comparison is made to exams dated: 03/30/2015 mammogram - [facility], 02/14/2014 mammogram, 03/05/2013 mammogram, 01/17/2012 mammogram, 02/17/2011 mammogram and 01/27/2011 mammogram - [facility]. There are scattered fibroglandular densities in both breasts. There are benign vascular calcifications in both breasts. There also are benign densities in both breasts. Additionally there are benign calcifications in the right breast. There also are post operative findings in the right breast. No significant masses, calcifications, or other findings are seen in either breast. There has been no significant interval change. IMPRESSION: BENIGN There is no mammographic evidence of malignancy. A 1 year screening mammogram is recommended. Elizabeth walterst/yolie:2017 10:29:24 copy to: Johann Jones M.D., ph: Industrial Relations Director: Abiola Hillman, [facility] This exam was dictated and interpreted by [id number] for [facility]. letter sent: Normal exam Mammogram BI-RADS: 2 Benign 2017 - - Read by: Elizabeth Mcintyre MD Dictated Date/time: 01/13/17 10:29 Electronically Signed by: Elizabeth Mcintyre MD 01/13/17 10:29 FINAL REPORT [facility] Bone Density Scan Bone Density Scan Patient Name: MK MERRITT : 1955; Age: 62 years y/o Female MR: [id number] Study: Bone Density Scan 2017 8:32 AM CDT Ordering Physician: Manuela Melissa MD Clinical Indication: Z13.820 Encounter for screening for osteoporosis. Comparison: None FINDINGS: The axial lumbar bone mineral density is 110% of the expected age matched bone mass with a T-score -0.7. Axial lumbar average BMD is 0.971 g/cm2. The left femoral neck bone mineral density is 110% of the expected age matched bone mass with a T-score of -0.7. Left femoral neck BMD is 0.774 g/cm2. The total femoral BMD is 1.058 g/cm2. IMPRESSION: 1. Normal bone mineral density of the lumbar spine. 2. Normal bone mineral density of the left femoral neck. The World Health Organization has established that OSTEOPOROSIS occurs at -2.5 or more standard deviations (SD) below peak bone mass. OSTEOPENIA (low bone mass) occurs at -1.0 standard deviations to -2.5 standard deviations below peak bone mass. SL: [id number] 2017 - - Read by: Mayank Toro MD Dictated Date/time: 01/13/17 09:42 Electronically Signed by: Mayank Toro MD 01/13/17 09:43 FINAL REPORT [facility] Digital Mammo Screen Hank MA w neto Digital Mammo Screen Hank MA w neto - DIGITAL MAMMO SCREEN HANK MA W NETO BILATERAL DIGITAL SCREENING MAMMOGRAM 3D/2D WITH CAD: 03/30/2015 CLINICAL: Routine. 2D digital mammographic images and 3D digital tomosynthesis images were obtained in the CC and MLO projections. Current study was evaluated with a Computer Aided Detection (CAD) system. Comparison is made to exams dated: 02/14/2014 mammogram, 03/05/2013 mammogram, 01/17/2012 mammogram, 02/17/2011 mammogram, 01/27/2011 mammogram and 01/24/2011 mammogram - [facility]. There are scattered fibroglandular densities in both breasts. There are benign vascular calcifications and calcifications in the right breast. There also are benign densities in the right breast. Additionally there is a benign density in the left breast. There also are post operative findings in the right breast. No significant masses, calcifications, or other findings are seen in either breast. There has been no significant interval change. IMPRESSION: BENIGN There is no mammographic evidence of malignancy. A 1 year screening mammogram is recommended. Elizabeth livingston/yolie:03/30/2015 15:00:33 copy to: Johann Jones M.D., ph: Industrial Relations Director: Luh Torres [facility] This exam was dictated and interpreted by [id number] for [facility]. letter sent: Normal exam Mammogram BI-RADS: 2 Benign 03/30/2015 - - Read by: Elizabeth Mcintyre MD Dictated Date/time: 03/30/15 15:00 Electronically Signed by: Elizabeth Mcintyre MD 03/30/15 15:00 [facility] [place] Hand AP lateral oblique Hand AP lateral oblique LEFT HAND RADIOGRAPH 3 VIEWS INDICATION: Injury COMPARISON: None FINDINGS: No fractures or dislocations are seen. The joint spaces are maintained. No osteolytic or sclerotic lesions are visualized. The regional soft tissues are unremarkable. IMPRESSION: No acute bony abnormalities are visualized. SL: 16 09/24/2014 - - Read by: Marcus Cooper MD Dictated Date/time: 09/24/14 11:32 Electronically Signed by: Marcus Cooper MD 09/24/14 11:33 FINAL REPORT [facility] Digital Mammo Screening Hank MA Digital Mammo Screening Hank MA - DIGITAL MAMMO SCREENING HANK MA BILATERAL DIGITAL SCREENING MAMMOGRAM WITH CAD: 02/14/2014 CLINICAL: Routine. Current study was evaluated with a Computer Aided Detection (CAD) system. Comparison is made to exams dated: 03/05/2013 mammogram, 01/17/2012 mammogram, 02/17/2011 mammogram, 01/27/2011 mammogram, 01/24/2011 mammogram - [facility] and 12/10/2003. Current study contains 4 films. There are scattered fibroglandular densities in both breasts. There are benign calcifications in the right breast. There also are benign densities in the right breast. Additionally there is a benign density in the left breast. No significant masses, calcifications, or other findings are seen in either breast. There has been no significant interval change. IMPRESSION: BENIGN There is no mammographic evidence of malignancy. A screening mammogram in one year is recommended. Marcus Cooper M.D. btp/penrad:02/19/2014 14:16:36 copy to: Johann Jones M.D., ph: Industrial Relations Director: Lori Olivera, [facility] This exam was dictated and interpreted by [id number] for [facility]. letter sent: Bilateral Benign Mammogram BI-RADS: 2 Benign 02/14/2014 - - Read by: Marcus Cooper MD Dictated Date/time: 02/19/14 14:16 Electronically Signed by: Marcus Cooper MD 02/19/14 14:16 FINAL REPORT [facility] Pelvis w Pelvis Transvaginal US Pelvis w Pelvis Transvaginal US TRANSABDOMINAL PELVIC ULTRASOUND; TRANSVAGINAL ULTRASOUND: Transabdominal and transvaginal evaluation of the pelvis was done. The uterus is not visualized consistent with hysterectomy. The bladder is underfilled but shows no other significant abnormality. The right ovary is not visualized consistent with oophorectomy. The left ovary is 3.3 x 1.9 x 1.4 cm in size. There is a 9 mm unilocular simple cyst in the left ovary. There is no evidence of other cysts, masses or free fluid. IMPRESSION: Subcentimeter cyst in the left ovary. SL:13 02/14/2014 - - Read by: Mayank Peter MD Dictated Date/time: 02/14/14 15:57 Electronically Signed by: Mayank Peter MD 02/14/14 16:00 FINAL REPORT [facility] Bowel colon Barium enema Bowel colon Barium enema DOUBLE CONTRAST BARIUM ENEMA. HISTORY: 58-year-old female who underwent a screening colonoscopy which was incomplete. The patient was referred for a barium enema examination 2 complete evaluation of the colon. COMMENT: A double contrast barium and was performed in the usual fashion the fluoroscopy time was 4.5 minutes. FINDINGS: A surgical assistant certified radiograph was initially performed. Of the bowel gas pattern is within normal limits per there is minimal lumbar scoliosis. Small calcifications within the pelvis are felt to represent phleboliths. It is noted that subsequent radiographs also demonstrated surgical clips in the right upper quadrant consistent with a prior cholecystectomy The entire colon including the cecum was successfully visualized. The proximal appendix which appears normal was also visualized. No strictures or filling defects were seen. No diverticula were demonstrated. The study is essentially within normal limits. CONCLUSION: 1. Negative double contrast barium enema. SL: 13 Armando Duran M.D. 12/04/2013 - - Read by: Armando Duran Dictated Date/time: 12/04/13 13:01 Electronically Signed by: Armando Duran MD 12/04/13 13:04 FINAL REPORT [facility] Vital Signs Vital Sign Value Date Comments Source Height 157.48 cm 12/13/2018 [facility] Group BMI Calculated 30.79 12/13/2018 [facility] Weight 76.364 12/13/2018 [facility] Group Heart Rate 57 12/13/2018 [facility] Temperature Oral (F) 97.9 F 12/13/2018 [facility] Systolic (mm Hg) 132 12/13/2018 [facility] Diastolic (mm Hg) 86 12/13/2018 [facility] Weight 77.273 06/21/2018 Medical Group BMI Calculated 31.16 06/21/2018 Medical Group Height 157.48 cm 06/21/2018 [facility] Group Systolic (mm Hg) 124 06/21/2018 [facility] Diastolic (mm Hg) 74 06/21/2018 Medical Group Heart Rate 68 06/21/2018 Medical Group Temperature Oral (F) 98.2 F 06/21/2018 [facility] Group Temperature Oral (F) 98.3 F 06/01/2018 Medical Group Heart Rate 61 06/01/2018 [facility] Group Systolic (mm Hg) 113 06/01/2018 [facility] Group Diastolic (mm Hg) 73 06/01/2018 Medical Group Weight 84.091 10/31/2017 Medical Group BMI Calculated 35.03 10/31/2017 Medical Group Height 154.94 cm 10/31/2017 [facility] Systolic (mm Hg) 143 10/31/2017 [facility] Group Diastolic (mm Hg) 80 10/31/2017 [facility] Group Temperature Oral (F) 98.2 F 10/31/2017 [facility] Group Heart Rate 65 10/31/2017 Medical Group Encounters Location Location Details Encounter Type Encounter Number Reason For Visit Attending Provider ADM Date DC Date Status Source [facility] Outpatient [id number] Manuela Melissa 02/14/2014 02/15/2014 [facility] [id number] Demetra Pettit 09/24/2014 09/25/2014 [facility] [place] [facility] [id number] Manuela Melissa 03/30/2015 03/31/2015 [facility] [place] Outpatient [id number] DEMETRA PETTIT 02/16/2016 Active [facility] Outpatient [id number] DEMETRA PETTIT 07/21/2016 Active [facility] Outpatient [id number] Manuela Melissa 2017 01/14/2017 [facility] Outpatient [id number] DEMETRA PETTIT 03/31/2017 Active [facility] Outpatient [id number] JUDY JACQUES 04/08/2017 Active [facility] Outpatient [id number] DEMETRA PETTIT 04/13/2017 [facility] Outpatient [facility] [id number] Demetra Pettit 04/20/2017 04/21/2017 [facility] Outpatient [id number] DEMETRA PETTIT 06/08/2017 Active [facility] Outpatient [id number] DEMETRA PETTIT 10/31/2017 [facility] Outpatient [id number] Demetra Pettit 10/31/2017 11/01/2017 Medical Group [facility] [place] Phone Message [id number] 01/15/2018 01/17/2018 Medical Group [facility] [place] Phone Message [id number] 01/24/2018 01/26/2018 [facility] [place] Phone Message [id number] 01/24/2018 01/26/2018 [facility] [place] Phone Message [id number] 01/31/2018 02/02/2018 Medical Group [facility] Outpatient Imaging [facility] [id number] Manuela Donato-Dominguez 04/09/2018 04/10/2018 [facility] Outpatient Imaging [place] [facility] [id number] Manuela Donato-Dominguez 04/20/2018 04/21/2018 [facility] [place] [facility] Phone Message [id number] 05/18/2018 05/20/2018 Medical Group Outpatient [id number] DEMETRA PETTIT 06/01/2018 Active [facility] Outpatient [id number] Demetra Pettit 06/01/2018 06/02/2018 [facility] Group [facility] Outside Medical Records [id number] 06/06/2018 06/08/2018 Medical Group Outpatient [id number] DEMETRA PETTIT 06/21/2018 Active [facility] [place] Outpatient [id number] Demetra Pettit 06/21/2018 06/22/2018 [facility] Group [facility] Phone Message [id number] 06/29/2018 07/01/2018 [facility] Group [facility] Phone Message [id number] 07/03/2018 07/05/2018 [facility] Group [facility] Outside Medical Records [id number] 07/04/2018 07/06/2018 [facility] Group [facility] Phone Message [id number] 07/09/2018 07/11/2018 [facility] Group [facility] Phone Message [id number] 10/29/2018 10/31/2018 Medical Group [facility] Between Visit [id number] 11/14/2018 11/15/2018 Medical Group Outpatient [id number] Demetra Pettit 12/13/2018 Active [facility] [place] Outpatient [id number] Demetra Pettit 12/13/2018 12/14/2018 Medical Group [facility] [place] Phone Message [id number] 12/21/2018 12/23/2018 Medical Group Procedures Procedure Code Date Perfomer Comments Source Breast biopsy and related procedures [id number] [facility] [place] Cholecystectomy [id number] [facility] [place] Hysterectomy [id number] [facility] [place] Laparoscopic sleeve gastrectomy [id number] [facility] [place] Breast biopsy and related procedures [id number] [facility] Cholecystectomy [id number] [facility] Hysterectomy [id number] [facility] Laparoscopic sleeve gastrectomy [id number] [facility] Tonsillectomy [id number] [facility] Breast biopsy and related procedures [id number] [facility] Cholecystectomy [id number] [facility] Hysterectomy [id number] [facility] Laparoscopic sleeve gastrectomy [id number] [facility] Tonsillectomy [id number] [facility] Breast biopsy and related procedures [id number] [place] Cholecyst[facility] [id number] [place] Hysterectomy [id number] [place] Laparoscopic sleeve gastrectomy [id number] [place] Tonsillectomy [id number] [place] Tonsillectomy [id number] [facility] [place]
--- OUTSIDE RECORDS SUMMARY | 2019-01-31 05:28 | XMS REPORT | Summary of Care ---
Author Author [facility] Primary [facility] [place] Organization [facility] [place] Address Unknown Phone Unavailable Encounter HQ Emi(FIN) [id number] Date(s): 06/01/18 - 06/01/18 [facility] [place] [address] [place] [address]- [phone] Discharge Disposition: Home or Self Care Attending Physician: Maxim Perdomo MD Vital Signs Most recent to 1 oldest [Reference Range]: Temperature Oral 98.3 DegF [96.4-99.1 DegF] (06/01/18 3:19 PM) Blood Pressure 113/73 mmHg [90-140/60-90 mmHg] (06/01/18 3:19 PM) Peripheral Pulse 61 bpm Rate [60-100 bpm] (06/01/18 3:19 PM) Problem List Condition Effective Dates Status Health Status Informant Acute maxillary 07/09/12 Resolved sinusitis1 Acute pharyngitis2 08/26/10 Resolved Acute sinusitis3 09/15/09 Resolved 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 Depressive disorder5 Active Dyslipidemia6 07/17/07 Active Exposure to sexually 08/13/09 Resolved transmissible disorder7 Fatigue8 11/07/13 Active Gastroenteritis9 01/27/09 Resolved Gastroesophageal Active reflux hnjfudu34 Hematoma(Confirmed) Active Jaw Active hematoma(Confirmed) Hypercholesterolemia 01/05/12 Active 11 Jmehpohqptzsi72 05/28/14 Active Hypertensive 03/30/15 Active eixcknp19 Hypertriglyceridemia 03/30/15 Active 14 Hypothyroid(Confirme Active d) Deztwqyarbgefl52 05/13/08 Active Impaired fasting 08/13/09 Active dramhsvbh03 Jngaradev70 12/09/10 Resolved Injury of hand18 09/22/14 Active Nemnqykv70 05/01/07 Active Long-term drug 05/13/08 Active cnxurfq97 Malaise and 05/13/08 Active iuczlif77 Menopausal 01/27/09 Active tfkkevww95 Murmur(Confirmed) Active Obesity(Confirmed) Active Onafuun61 12/07/07 Resolved Staphylococcal 05/13/08 Resolved infectious rccpbhu07 Streptococcal sore 12/07/07 Resolved ckherc16 Contusion of Active hip(Confirmed) Upper respiratory 07/17/07 Resolved zevsrspln70 Urinary tract 12/29/10 Resolved infectious Doudwjcq02 12/09/10 Resolved 1Data migrated from [employer] [...] [employer] on 04/11/15. 27Data migrated from [employer] on 04/11/15. 28Data migrated from [employer] on 04/11/15. Allergies, Adverse Reactions, Alerts Substance Reaction Severity Status morphine1 Active 1Data migrated from [employer] on 01/20/15. Originally documented as MORPHINE. Dermatological problems, e.g., rash, hives ; SOB Medications Benadryl 0 Refill(s) Start Date: 06/01/18 Status: Ordered Percocet 10/325 oral tablet 1 tab, PO, Q8H, PRN Pain, # 90 tab, 0 Refill(s) Start Date: 06/01/18 Stop Date: 06/04/18 Status: Discontinued Soma 350 mg oral tablet 350 mg=1 tab, PO, Q8H, # 21 tab, 0 Refill(s) Start Date: 06/01/18 Stop Date: 12/13/18 Status: Deleted Results No data available for this section Immunizations Given and Recorded Vaccine Date Status Refusal Reason Hx hepatitis B vaccine1 04/14/10 Given Hx hepatitis B vaccine2 08/14/09 Given diphtheria/pertussis, acel/tetanus adult3 08/13/09 Given tetanus-diphtheria toxoids4 08/13/09 Given pneumococcal 23-valent vaccine 06/15/06 Given 1Result Comment: engerix. Migrated from OBS ; Data migrated from [employer] on 10/26/2015. 2Result Comment: recombivaxhb. Migrated from OBS ; Data migrated from [employer] on 10/26/2015. 3Result Comment: tdap. Migrated from OBS ; Data migrated from [employer] on 10/26/2015. 4Result Comment: tdap. Migrated from OBS VIS: 08-12-08 given August 13, 2009. ; Data migrated from [employer] on 10/26/2015. Procedures Procedure Date Related Diagnosis [...]
--- OUTSIDE RECORDS SUMMARY | 2019-01-31 05:28 | XMS REPORT | Summary of Care ---
Author Author [facility] Outpatient Imaging [facility] Outpatient Imaging [place] Address Unknown Phone Unavailable Encounter HQ Emi(FIN) [id number] Date(s): 04/20/17 - 04/20/17 [facility] Outpatient Imaging [place] [address] [place] [address] [phone]- [phone] Discharge Disposition: Home or Self Care Attending Physician: Maxim Perdomo MD Vital Signs No data available for this section Problem List Condition Effective Dates Status Health Status Informant Acute maxillary 07/09/12 Resolved sinusitis1 Acute pharyngitis2 08/26/10 Resolved Acute sinusitis3 09/15/09 Resolved 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 Depressive disorder5 Active Dyslipidemia6 07/17/07 Active Exposure to sexually 08/13/09 Resolved transmissible disorder7 Fatigue8 11/07/13 Active Gastroenteritis9 01/27/09 Resolved Gastroesophageal Active reflux owjjvzf04 Hematoma(Confirmed) Active Jaw Active hematoma(Confirmed) Hypercholesterolemia 01/05/12 Active 11 Kugmqmyhzcdjy34 05/28/14 Active Hypertensive 03/30/15 Active tjekdqc75 Hypertriglyceridemia 03/30/15 Active 14 Hypothyroid(Confirme Active d) Oplnnscxbixhrj91 05/13/08 Active Impaired fasting 08/13/09 Active iiyyvmzqk53 Swratrwlt41 12/09/10 Resolved Injury of hand18 09/22/14 Active Fshurcjb54 05/01/07 Active Long-term drug 05/13/08 Active zhmeana36 Malaise and 05/13/08 Active fderpbr11 Menopausal 01/27/09 Active depttrkf87 Murmur(Confirmed) Active Obesity(Confirmed) Active Ysfjpms35 12/07/07 Resolved Staphylococcal 05/13/08 Resolved infectious uljeopb47 Streptococcal sore 12/07/07 Resolved eyngtt78 Contusion of Active hip(Confirmed) Upper respiratory 07/17/07 Resolved ofbbhekkp01 Urinary tract 12/29/10 Resolved infectious cpjonqc44 Vvatmcls41 12/09/10 Resolved 1Data migrated from [employer] [...] and Recorded Vaccine Date Status Refusal Reason diphtheria/pertussis, acel/tetanus adult1 08/13/09 Given Hx hepatitis B vaccine2 04/14/10 Given Hx hepatitis B vaccine3 08/14/09 Given pneumococcal 23-valent vaccine 06/15/06 Given tetanus-diphtheria toxoids4 08/13/09 Given 1Result Comment: tdap. Migrated from OBS ; Data migrated from [employer] on 10/26/2015. 2Result Comment: engerix. Migrated from OBS ; Data migrated from [employer] on 10/26/2015. 3Result Comment: recombivaxhb. Migrated from OBS ; Data migrated from [employer] on 10/26/2015. 4Result Comment: tdap. Migrated from OBS VIS: 08-12-08 given August 13, 2009. ; Data migrated from [employer] on 10/26/2015. Procedures Procedure Date Related Diagnosis Body Site Breast biopsy and related procedures Cholecystectomy Hysterectomy Laparoscopic sleeve gastrectomy Tonsillectomy Social History Social History Type Response Smoking Status Former smoker; Exposure to Tobacco Smoke None; Cigarette Smoking Last 365 Days No; Reg Smoking Cessation Counseling No Assessment and Plan No data available for this section
--- OUTSIDE RECORDS SUMMARY | 2019-01-31 05:28 | XMS REPORT | Summary of Care ---
Author Author [facility] Primary [facility] [place] Organization [facility] [place] Address Unknown Phone Unavailable Encounter HQ Merryr_phil(FIN) [id number] Date(s): 07/03/18 - 07/04/18 [facility] Primary [place] [address] [place] [address]- [phone] Vital Signs No data available for this section Problem List Condition Effective Dates Status Health Status Informant Acute maxillary 07/09/12 Resolved sinusitis1 Acute pharyngitis2 08/26/10 Resolved Acute sinusitis3 09/15/09 Resolved 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 Depressive disorder5 Active Dyslipidemia6 07/17/07 Active Exposure to sexually 08/13/09 Resolved transmissible disorder7 Fatigue8 11/07/13 Active Gastroenteritis9 01/27/09 Resolved Gastroesophageal Active reflux krvmafv24 Hematoma(Confirmed) Active Jaw Active hematoma(Confirmed) Hypercholesterolemia 01/05/12 Active 11 Yiexaddebikon16 05/28/14 Active Hypertensive 03/30/15 Active lfkxala42 Hypertriglyceridemia 03/30/15 Active 14 Hypothyroid(Confirme Active d) Rmhrvmzsrovgth06 05/13/08 Active Impaired fasting 08/13/09 Active ypepwipbn35 Mqfjlxaen82 12/09/10 Resolved Injury of hand18 09/22/14 Active Uprrczew26 05/01/07 Active Long-term drug 05/13/08 Active daikesz54 Malaise and 05/13/08 Active nylfjlu28 Menopausal 01/27/09 Active jhrzmzke46 Murmur(Confirmed) Active Obesity(Confirmed) Active Eciulvb77 12/07/07 Resolved Staphylococcal 05/13/08 Resolved infectious wajjzlf42 Streptococcal sore 12/07/07 Resolved ffdesr41 Contusion of Active hip(Confirmed) Upper respiratory 07/17/07 Resolved kxnsnlodb34 Urinary tract 12/29/10 Resolved infectious oivdqxw59 Injepinm07 12/09/10 Resolved 1Data migrated from [employer] [...] problems, e.g., rash, hives ; SOB Medications Ativan 1 mg oral tablet 1 mg=1 tab, PO, TID, X 30 day, # 90 tab, 1 Refill(s) Start Date: 07/05/18 Stop Date: 09/03/18 Status: Completed PROzac 10 mg oral capsule 10 mg=1 cap, PO, Daily, X 30 day, # 30 cap, 1 Refill(s), Pharmacy: [id number] Start Date: 07/05/18 Stop Date: 08/27/18 Status: Completed Results No data available for this section Immunizations Given and Recorded Vaccine Date Status Refusal Reason Hx hepatitis B vaccine1 04/14/10 Given Hx hepatitis B vaccine2 08/14/09 Given diphtheria/pertussis, acel/tetanus adult3 08/13/09 Given tetanus-diphtheria toxoids4 08/13/09 Given pneumococcal 23-valent vaccine 06/15/06 Given 1Result Comment: engerix. Migrated from OBS ; Data migrated from [employer] on 10/26/2015. 2Result Comment: recombivaxhb. Migrated from OBS ; Data migrated from [employer] on 10/26/2015. 3Result Comment: tdap. Migrated from OBS ; Data migrated from [employer] on 10/26/2015. 4Result Comment: tdap. Migrated from OBS VIS: 08-12-08 given August 13, 2009. ; Data migrated from [employer] on 10/26/2015. Procedures Procedure Date Related Diagnosis [...]
--- OUTSIDE RECORDS SUMMARY | 2019-01-31 05:28 | XMS REPORT | Summary of Care ---
Author Author [facility] Primary Care [place] Organization [facility] Primary [facility] [place] Address Unknown Phone Unavailable Encounter HQ Antonettentr_phil(FIN) [id number] Date(s): 11/14/18 - 11/15/18 [facility] Primary Care [place] [address] [place] [phone] Vital Signs No data available for this [...] Jaw Active hematoma(Confirmed) Hypercholesterolemia 01/05/12 Active 11 Svmfwsbzlpesx10 05/28/14 Active Hypertensive 03/30/15 Active pyrxhmf86 Hypertriglyceridemia 03/30/15 Active 14 Hypothyroid(Confirme Active d) Zfwqutvlpziomz20 05/13/08 Active Impaired fasting 08/13/09 Active bpaphvaje41 Wihbjtdib46 12/09/10 Resolved Injury of hand18 09/22/14 Active Wfwmioat17 05/01/07 Active Long-term drug 05/13/08 Active inuynmt95 Malaise and 05/13/08 Active zotzzvn48 Menopausal 01/27/09 Active saqsyxtm55 Murmur(Confirmed) Active Obesity(Confirmed) Active Oggknzv27 12/07/07 Resolved Staphylococcal 05/13/08 Resolved infectious ghfkeis04 Streptococcal sore 12/07/07 Resolved eecdyl10 Contusion of Active hip(Confirmed) Upper respiratory 07/17/07 Resolved boqlmhdui72 Urinary tract 12/29/10 Resolved infectious fodaepf62 Noufxmsw32 12/09/10 Resolved 1Data migrated from [employer] [...] Migrated from OBS ; Data migrated from [employer] on 10/26/2015. 2Result Comment: recombivaxhb. Migrated from OBS ; Data migrated from [employer] on 10/26/2015. 3Result Comment: tdap. Migrated from OBS ; Data migrated from [employer] on 10/26/2015. 4Result Comment: tdap. Migrated from OBS VIS: 08-12-08 given August 13, 2009. ; Data migrated from [employer] on 10/26/2015. Procedures Procedure Date Related Diagnosis Body Site Status Breast biopsy and related procedures Completed Cholecystectomy Completed Hysterectomy Completed Laparoscopic sleeve gastrectomy Completed Tonsillectomy Completed Social History Social History Type Response Smoking Status Former smoker; Exposure to Tobacco Smoke None; Cigarette Smoking Last 365 Days No; Reg Smoking Cessation Counseling No entered on: 06/21/18 Assessment and Plan No data available for this section
--- OUTSIDE RECORDS SUMMARY | 2019-01-31 05:29 | XMS REPORT | Summary of Care ---
Author Author [facility] [place] Organization [facility] [place] Address Unknown Phone Unavailable Encounter HQ Zackary_phil(FIN) [id number] Date(s): 01/31/18 - 02/01/18 [facility] [place] [address] [place] [phone] Vital Signs No data available for this section Problem List Condition Effective Dates Status Health Status Informant Acute maxillary 07/09/12 Resolved sinusitis1 Acute pharyngitis2 08/26/10 Resolved Acute sinusitis3 09/15/09 Resolved 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 Depressive disorder5 Active Dyslipidemia6 07/17/07 Active Exposure to sexually 08/13/09 Resolved transmissible disorder7 Fatigue8 11/07/13 Active Gastroenteritis9 01/27/09 Resolved Gastroesophageal Active reflux izyvakq64 Hematoma(Confirmed) Active Jaw Active hematoma(Confirmed) Hypercholesterolemia 01/05/12 Active 11 Vnjoydvvqftlb61 05/28/14 Active Hypertensive 03/30/15 Active mpaxzvq30 Hypertriglyceridemia 03/30/15 Active 14 Hypothyroid(Confirme Active d) Eweazrnpxzptcl99 05/13/08 Active Impaired fasting 08/13/09 Active vtstcdinb73 Psykrjoyg33 12/09/10 Resolved Injury of hand18 09/22/14 Active Oytqpzep57 05/01/07 Active Long-term drug 05/13/08 Active ftssoln97 Malaise and 05/13/08 Active Menopausal 01/27/09 Active asvbwvqs18 Murmur(Confirmed) Active Obesity(Confirmed) Active Lgnmocm71 12/07/07 Resolved Staphylococcal 05/13/08 Resolved infectious nlnygrd34 Streptococcal sore 12/07/07 Resolved kmynuw32 Contusion of Active hip(Confirmed) Upper respiratory 07/17/07 Resolved gncdijwoa19 Urinary tract 12/29/10 Resolved infectious wfqdxre03 Zurbbbor13 12/09/10 Resolved 1Data migrated from [employer] on 7/18/15. 2Data migrated from [employer] on 04/11/15. [...] Migrated from OBS ; Data migrated from [employer] on 10/26/2015. 2Result Comment: recombivaxhb. Migrated from OBS ; Data migrated from [employer] on 10/26/2015. 3Result Comment: tdap. Migrated from OBS ; Data migrated from [employer] on 10/26/2015. 4Result Comment: tdap. Migrated from OBS VIS: 08-12-08 given August 13, 2009. ; Data migrated from [employer] on 10/26/2015. Procedures Procedure Date Related Diagnosis Body Site Status Breast biopsy and related procedures Completed Cholecystectomy Completed Hysterectomy Completed Laparoscopic sleeve gastrectomy Completed Tonsillectomy Completed Social History Social History Type Response Smoking Status Former smoker; Exposure to Tobacco Smoke None; Cigarette Smoking Last 365 Days No; Reg Smoking Cessation Counseling No entered on: 10/31/17 Assessment and Plan No data available for this section
--- OUTSIDE RECORDS SUMMARY | 2019-01-31 05:29 | XMS REPORT | Summary of Care ---
Author Author [facility] [place] Organization [facility] [place] Address Unknown Phone Unavailable Encounter HQ Zackary_phil(FIN) [id number] Date(s): 01/31/18 - 02/01/18 [facility] [place] [address] [place] [phone] Vital Signs No data available for this section Problem List Condition Effective Dates Status Health Status Informant Acute maxillary 07/09/12 Resolved sinusitis1 Acute pharyngitis2 08/26/10 Resolved Acute sinusitis3 09/15/09 Resolved 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 Depressive disorder5 Active Dyslipidemia6 07/17/07 Active Exposure to sexually 08/13/09 Resolved transmissible disorder7 Fatigue8 11/07/13 Active Gastroenteritis9 01/27/09 Resolved Gastroesophageal Active reflux daqdxhv73 Hematoma(Confirmed) Active Jaw Active hematoma(Confirmed) Hypercholesterolemia 01/05/12 Active 11 Fjflykmofqhsz15 05/28/14 Active Hypertensive 03/30/15 Active lbagxkx87 Hypertriglyceridemia 03/30/15 Active 14 Hypothyroid(Confirme Active d) Kkobqbwadopnyu42 05/13/08 Active Impaired fasting 08/13/09 Active dubxrckns61 Gyskzftmm31 12/09/10 Resolved Injury of hand18 09/22/14 Active Ddzzprau26 05/01/07 Active Long-term drug 05/13/08 Active lcntigq66 Malaise and 05/13/08 Active dnxantu75 Menopausal 01/27/09 Active rbligrtl19 Murmur(Confirmed) Active Obesity(Confirmed) Active Roikxto11 12/07/07 Resolved Staphylococcal 05/13/08 Resolved infectious dusbdlz89 Streptococcal sore 12/07/07 Resolved moyuio61 Contusion of Active hip(Confirmed) Upper respiratory 07/17/07 Resolved phnezyufk51 Urinary tract 12/29/10 Resolved infectious kbzixkq17 Scgljral62 12/09/10 Resolved 1Data migrated from [employer] [...] Migrated from OBS ; Data migrated from [employer] on 10/26/2015. 2Result Comment: recombivaxhb. Migrated from OBS ; Data migrated from [employer] on 10/26/2015. 3Result Comment: tdap. Migrated from OBS ; Data migrated from [employer] on 10/26/2015. 4Result Comment: tdap. Migrated from OBS VIS: 08-12-08 given August 13, 2009. ; Data migrated from [employer] on 10/26/2015. Procedures Procedure Date Related Diagnosis [...]
--- OUTSIDE RECORDS SUMMARY | 2019-01-31 05:29 | XMS REPORT | Summary of Care ---
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 Depressive disorder5 Active Dyslipidemia6 07/17/07 Active Exposure to sexually 08/13/09 Resolved transmissible disorder7 Fatigue8 11/07/13 Active Gastroenteritis9 01/27/09 Resolved Gastroesophageal Active reflux utokbvk58 Hematoma(Confirmed) Active Jaw Active hematoma(Confirmed) Hypercholesterolemia 01/05/12 Active 11 Kobbxikenmxlz85 05/28/14 Active Hypertensive 03/30/15 Active psybwwz21 Hypertriglyceridemia 03/30/15 Active 14 Hypothyroid(Confirme Active d) Fqsywjakptjgfx54 05/13/08 Active Impaired fasting 08/13/09 Active mndupbkrz99 Zqvwhmtla43 12/09/10 Resolved Injury of hand18 09/22/14 Active Liwxjkdo40 05/01/07 Active Long-term drug 05/13/08 Active vrjwitk44 Malaise and 05/13/08 Active Menopausal 01/27/09 Active Murmur(Confirmed) Active Obesity(Confirmed) Active Tiqhusy18 12/07/07 Resolved Staphylococcal 05/13/08 Resolved infectious urqcjpt39 Streptococcal sore 12/07/07 Resolved Contusion of Active hip(Confirmed) Upper respiratory 07/17/07 Resolved Urinary tract 12/29/10 Resolved infectious Geydjmhq73 12/09/10 Resolved 1Data migrated from [employer] [...] Migrated from OBS ; Data migrated from [employer] on 10/26/2015. 2Result Comment: recombivaxhb. Migrated from OBS ; Data migrated from [employer] on 10/26/2015. 3Result Comment: tdap. Migrated from OBS ; Data migrated from [employer] on 10/26/2015. 4Result Comment: tdap. Migrated from OBS VIS: 08-12-08 given August 13, 2009. ; Data migrated from [employer] on 10/26/2015. Procedures Procedure Date Related Diagnosis [...]
--- OUTSIDE RECORDS SUMMARY | 2019-01-31 05:29 | XMS REPORT | Summary of Care ---
Author Author [facility] [place] Organization [facility] [place] Address Unknown Phone Unavailable Encounter PARKER Middleton(FIN) [id number] Date(s): 10/31/17 - 10/31/17 [facility] [place] [address] [place] [address] [phone] Discharge Disposition: Home or Self Care Attending Physician: Maxim Perdomo MD Vital Signs Most recent to 1 oldest [Reference Range]: Height 154.94 cm (10/31/17 9:34 AM) Temperature Oral 98.2 DegF [96.4-99.1 DegF] (10/31/17 9:34 AM) Blood Pressure 143/80 mmHg [90-140/60-90 mmHg] *HI* (10/31/17 9:34 AM) Peripheral Pulse 65 bpm Rate [60-100 bpm] (10/31/17 9:34 AM) Weight 84.091 kg (10/31/17 9:34 AM) Body Mass Index 35.03 m2 (10/31/17 9:34 AM) Problem List Condition Effective Dates Status Health Status Informant Acute maxillary 07/09/12 Resolved sinusitis1 Acute pharyngitis2 08/26/10 Resolved Acute sinusitis3 09/15/09 Resolved 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 Depressive disorder5 Active Dyslipidemia6 07/17/07 Active Exposure to sexually 08/13/09 Resolved transmissible disorder7 Fatigue8 11/07/13 Active Gastroenteritis9 01/27/09 Resolved Gastroesophageal Active reflux Hematoma(Confirmed) Active Jaw Active hematoma(Confirmed) Hypercholesterolemia 01/05/12 Active 11 Kvcqwxlsitnpx87 05/28/14 Active Hypertensive 03/30/15 Active imlvwaz12 Hypertriglyceridemia 03/30/15 Active 14 Hypothyroid(Confirme Active d) Ceafzhjlokdpla07 05/13/08 Active Impaired fasting 08/13/09 Active umjkrqmds93 Vzvebotix69 12/09/10 Resolved Injury of hand18 09/22/14 Active Vhfwrhpj48 05/01/07 Active Long-term drug 05/13/08 Active rpamxcm22 Malaise and 05/13/08 Active miumxcu47 Menopausal 01/27/09 Active Murmur(Confirmed) Active Obesity(Confirmed) Active Oqxgxgn49 12/07/07 Resolved Staphylococcal 05/13/08 Resolved infectious mjnpuud87 Streptococcal sore 12/07/07 Resolved kmwsue24 Contusion of Active hip(Confirmed) Upper respiratory 07/17/07 Resolved kgpbpeiam32 Urinary tract 12/29/10 Resolved infectious avizvrw45 Yyzysfzl59 12/09/10 Resolved 1Data migrated from [employer] [...] Severity Status morphine1 Active 1Data migrated from [employer] on 01/20/15. Originally documented as MORPHINE. Dermatological problems, e.g., rash, hives ; SOB Medications Ambien 10 mg oral tablet 10 mg=1 tab, PO, Bedtime, PRN for sleep, 0 Refill(s) Start Date: 10/31/17 Stop Date: 10/31/17 Status: Discontinued Ambien 10 mg oral tablet 10 mg=1 tab, PO, Bedtime, PRN for sleep, X 90 day, # 90 tab, 1 Refill(s) Start Date: 10/31/17 Stop Date: 04/29/18 Status: Ordered Ambien 10 mg oral tablet 10 mg=1 tab, PO, Bedtime, PRN for sleep, X 30 day, # 30 tab, 0 Refill(s) Start Date: 10/31/17 Stop Date: 10/31/17 Status: Completed hydrochlorothiazide 12.5 mg oral tablet See Instructions, TAKE 1 TABLET BY MOUTH DAILY, # 90 tab, 2 Refill(s), Pharmacy: [facility] Start Date: 10/31/17 Status: Ordered metFORMIN 500 mg oral tablet, extended release 500 mg=1 tab, PO, BID-Meals, X 90 day, # 180 tab, 3 Refill(s), Pharmacy: [facility] Start Date: 10/31/17 Stop Date: 11/01/17 Status: Completed mirtazapine 30 mg oral tablet See Instructions, TAKE 2 TABLETS BY MOUTH AT BEDTIME, # 180 tab, 2 Refill(s), armacy: [facility] Start Date: 10/31/17 Status: Ordered topiramate 50 mg oral tablet 50 mg=1 tab, PO, BID, # 180 tab, 1 Refill(s), Pharmacy: [facility] Start Date: 10/31/17 Stop Date: 04/29/18 Status: Ordered Zithromax Z-Bruno 250 mg oral tablet See Instructions, Take 2 tablets by mouth the first day then 1 tablet by mouth d ays 2-5., X 5 day, # 6 tab, 0 Refill(s), Pharmacy: [place] [id number] Start Date: 10/31/17 Stop Date: 11/05/17 Status: Completed Results No data available for this section Immunizations Given and Recorded Vaccine Date Status Refusal Reason Hx hepatitis B vaccine1 04/14/10 Given Hx hepatitis B vaccine2 08/14/09 Given diphtheria/pertussis, acel/tetanus adult3 08/13/09 Given tetanus-diphtheria toxoids4 08/13/09 Given pneumococcal 23-valent vaccine 06/15/06 Given 1Result Comment: engerix. Migrated from OBS ; Data migrated from [employer] on 10/26/2015. 2Result Comment: recombivaxhb. Migrated from OBS ; Data migrated from [employer] on 10/26/2015. 3Result Comment: tdap. Migrated from OBS ; Data migrated from [employer] on 10/26/2015. 4Result Comment: tdap. Migrated from OBS VIS: 08-12-08 given August 13, 2009. ; Data migrated from [employer] on 10/26/2015. Procedures Procedure Date Related Diagnosis [...]
--- OUTSIDE RECORDS SUMMARY | 2019-01-31 05:29 | XMS REPORT | Summary of Care ---
Author Author [facility] Primary [place] Organization [facility] [place] Address Unknown Phone Unavailable Encounter HQ Merryr_phil(FIN) [id number] Date(s): 07/04/18 - 07/05/18 [facility] Primary [place] [address] [place] [address] [phone] Vital Signs No data available for this section Problem List Condition Effective Dates Status Health Status Informant Acute maxillary 07/09/12 Resolved sinusitis1 Acute pharyngitis2 08/26/10 Resolved Acute sinusitis3 09/15/09 Resolved 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 Depressive disorder5 Active Dyslipidemia6 07/17/07 Active Exposure to sexually 08/13/09 Resolved transmissible disorder7 Fatigue8 11/07/13 Active Gastroenteritis9 01/27/09 Resolved Gastroesophageal Active reflux aljlnxk08 Hematoma(Confirmed) Active Jaw Active hematoma(Confirmed) Hypercholesterolemia 01/05/12 Active 11 Lkhfyqnjqjysm60 05/28/14 Active Hypertensive 03/30/15 Active mxrdnot45 Hypertriglyceridemia 03/30/15 Active 14 Hypothyroid(Confirme Active d) Isstbdbruaukik23 05/13/08 Active Impaired fasting 08/13/09 Active xkrdnekpa28 Ppmjlhwcy90 12/09/10 Resolved Injury of hand18 09/22/14 Active Smynmcvl91 05/01/07 Active Long-term drug 05/13/08 Active amqzvgc87 Malaise and 05/13/08 Active ghjnudx46 Menopausal 01/27/09 Active Murmur(Confirmed) Active Obesity(Confirmed) Active Yxnffey24 12/07/07 Resolved Staphylococcal 05/13/08 Resolved infectious tmazpxr70 Streptococcal sore 12/07/07 Resolved bpazxr41 Contusion of Active hip(Confirmed) Upper respiratory 07/17/07 Resolved iqhsgnjpn50 Urinary tract 12/29/10 Resolved infectious Ppuleixd65 12/09/10 Resolved 1Data migrated from [employer] [...] Migrated from OBS ; Data migrated from [employer] on 10/26/2015. 2Result Comment: recombivaxhb. Migrated from OBS ; Data migrated from [employer] on 10/26/2015. 3Result Comment: tdap. Migrated from OBS ; Data migrated from [employer] on 10/26/2015. 4Result Comment: tdap. Migrated from OBS VIS: 08-12-08 given August 13, 2009. ; Data migrated from [employer] on 10/26/2015. Procedures Procedure Date Related Diagnosis [...]
--- OUTSIDE RECORDS SUMMARY | 2019-01-31 05:29 | XMS REPORT | Summary of Care ---
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 Depressive disorder5 Active Dyslipidemia6 07/17/07 Active Exposure to sexually 08/13/09 Resolved transmissible disorder7 Fatigue8 11/07/13 Active Gastroenteritis9 01/27/09 Resolved Gastroesophageal Active reflux ybpqsyg73 Hematoma(Confirmed) Active Jaw Active hematoma(Confirmed) Hypercholesterolemia 01/05/12 Active 11 Aoszzistbfvre96 05/28/14 Active Hypertensive 03/30/15 Active okdrwoj23 Hypertriglyceridemia 03/30/15 Active 14 Hypothyroid(Confirme Active d) Yyuetgvvwjdvox90 05/13/08 Active Impaired fasting 08/13/09 Active lcmjwyrmz63 Wcabkygsc19 12/09/10 Resolved Injury of hand18 09/22/14 Active Svvcbjnp17 05/01/07 Active Long-term drug 05/13/08 Active zyavrer98 Malaise and 05/13/08 Active uxiiqkj53 Menopausal 01/27/09 Active mlqiejdr60 Murmur(Confirmed) Active Obesity(Confirmed) Active Brebxbv77 12/07/07 Resolved Staphylococcal 05/13/08 Resolved infectious euukxly02 Streptococcal sore 12/07/07 Resolved xxgsyh86 Contusion of Active hip(Confirmed) Upper respiratory 07/17/07 Resolved zqtadtayk16 Urinary tract 12/29/10 Resolved infectious Eppedvsr60 12/09/10 Resolved 1Data migrated from [employer] [...] problems, e.g., rash, hives ; SOB Medications Xanax 0.5 mg oral tablet 0.5 mg=1 tab, PO, TID, X 10 day, # 30 tab, 0 Refill(s) Start Date: 07/09/18 Stop Date: 07/19/18 Status: Completed Results No data available for this section Immunizations Given and Recorded Vaccine Date Status Refusal Reason Hx hepatitis B vaccine1 04/14/10 Given Hx hepatitis B vaccine2 08/14/09 Given diphtheria/pertussis, acel/tetanus adult3 08/13/09 Given tetanus-diphtheria toxoids4 08/13/09 Given pneumococcal 23-valent vaccine 06/15/06 Given 1Result Comment: engerix. Migrated from OBS ; Data migrated from [employer] on 10/26/2015. 2Result Comment: recombivaxhb. Migrated from OBS ; Data migrated from [employer] on 10/26/2015. 3Result Comment: tdap. Migrated from OBS ; Data migrated from [employer] on 10/26/2015. 4Result Comment: tdap. Migrated from OBS VIS: 08-12-08 given August 13, 2009. ; Data migrated from [employer] on 10/26/2015. Procedures Procedure Date Related Diagnosis [...]
--- OUTSIDE RECORDS SUMMARY | 2019-01-31 05:29 | XMS REPORT | Summary of Care ---
Author Author [facility] Primary Care [place] Organization [facility] [place] Address Unknown Phone Unavailable Encounter HQ Emi(FIN) [id number] Date(s): 06/21/18 - 06/21/18 [facility] [place] [address] [place] [address]- [phone] Discharge Disposition: Home or Self Care Attending Physician: Maxim Perdomo MD Vital Signs Most recent to 1 oldest [Reference Range]: Height 157.48 cm (06/21/18 2:49 PM) Temperature Oral 98.2 DegF [96.4-99.1 DegF] (06/21/18 2:49 PM) Blood Pressure 124/74 mmHg [90-140/60-90 mmHg] (06/21/18 2:49 PM) Peripheral Pulse 68 bpm Rate [60-100 bpm] (06/21/18 2:49 PM) Weight 77.273 kg (06/21/18 2:49 PM) Body Mass Index 31.16 m2 (06/21/18 2:49 PM) Problem List Condition Effective Dates Status Health Status Informant Acute maxillary 07/09/12 Resolved sinusitis1 Acute pharyngitis2 08/26/10 Resolved Acute sinusitis3 09/15/09 Resolved 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 Depressive disorder5 Active Dyslipidemia6 07/17/07 Active Exposure to sexually 08/13/09 Resolved transmissible disorder7 Fatigue8 11/07/13 Active Gastroenteritis9 01/27/09 Resolved Gastroesophageal Active reflux piwgrps98 Hematoma(Confirmed) Active Jaw Active hematoma(Confirmed) Hypercholesterolemia 01/05/12 Active 11 Icnpemkfboydo28 05/28/14 Active Hypertensive 03/30/15 Active lxenkuj98 Hypertriglyceridemia 03/30/15 Active 14 Hypothyroid(Confirme Active d) Lwqhmjtcantcap19 05/13/08 Active Impaired fasting 08/13/09 Active snkgzzzey39 Cumprrvlm48 3/17/11 Resolved Injury of hand18 09/22/14 Active Ibxkriua07 05/01/07 Active Long-term drug 05/13/08 Active Malaise and 05/13/08 Active dqdkvyc84 Menopausal 01/27/09 Active eeuxvpbb62 Murmur(Confirmed) Active Obesity(Confirmed) Active Diqiuim23 12/07/07 Resolved Staphylococcal 05/13/08 Resolved infectious xunhqqj75 Streptococcal sore 12/07/07 Resolved wxklox04 Contusion of Active hip(Confirmed) Upper respiratory 07/17/07 Resolved rhyycjnpy01 Urinary tract 12/29/10 Resolved infectious okdafzs30 Hyzdfgdt32 12/09/10 Resolved 1Data migrated from [employer] [...] e.g., rash, hives ; SOB Medications Ativan 0.5 mg oral tablet 0.5 mg=1 tab, PO, TID, X 30 day, # 90 tab, 0 Refill(s) Start Date: 06/21/18 Stop Date: 07/05/18 Status: Completed PROzac 10 mg oral capsule 10 mg=1 cap, PO, Daily, X 30 day, # 30 cap, 1 Refill(s), Pharmacy: [id number] Start Date: 06/21/18 Stop Date: 08/27/18 Status: Completed Wellbutrin XL 150 mg/24 hours oral tablet, extended release 150 mg=1 tab, PO, Daily, please do not do the prozac, # 30 tab, 1 Refill(s), [facility] rmacy: [place] [id number] Start Date: 06/21/18 Stop Date: 12/13/18 Status: Deleted Results No data available for this section Immunizations Given and Recorded Vaccine Date Status Refusal Reason Hx hepatitis B vaccine1 04/14/10 Given Hx hepatitis B vaccine2 08/14/09 Given diphtheria/pertussis, acel/tetanus adult3 08/13/09 Given tetanus-diphtheria toxoids4 08/13/09 Given pneumococcal 23-valent vaccine 06/15/06 Given 1Result Comment: engerix. Migrated from OBS ; Data migrated from [employer] on 10/26/2015. 2Result Comment: recombivaxhb. Migrated from OBS ; Data migrated from [employer] on 10/26/2015. 3Result Comment: tdap. Migrated from OBS ; Data migrated from [employer] on 10/26/2015. 4Result Comment: tdap. Migrated from OBS VIS: 08-12-08 given August 13, 2009. ; Data migrated from [employer] on 10/26/2015. Procedures Procedure Date Related Diagnosis [...]
--- OUTSIDE RECORDS SUMMARY | 2019-01-31 05:29 | XMS REPORT | Summary of Care ---
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 Depressive disorder5 Active Dyslipidemia6 07/17/07 Active Exposure to sexually 08/13/09 Resolved transmissible disorder7 Fatigue8 11/07/13 Active Gastroenteritis9 01/27/09 Resolved Gastroesophageal Active reflux ghiqlns06 Hematoma(Confirmed) Active Jaw Active hematoma(Confirmed) Hypercholesterolemia 01/05/12 Active 11 Regoyafkdjdko72 05/28/14 Active Hypertensive 03/30/15 Active qkpqfeb75 Hypertriglyceridemia 03/30/15 Active 14 Hypothyroid(Confirme Active d) Ehgbwxxdduaono63 05/13/08 Active Impaired fasting 08/13/09 Active qxcdmtkug72 Pxigklgpw65 12/09/10 Resolved Injury of hand18 09/22/14 Active Yksqgftg06 05/01/07 Active Long-term drug 05/13/08 Active morcbyj52 Malaise and 05/13/08 Active ayfwalq27 Menopausal 01/27/09 Active llngcqse91 Murmur(Confirmed) Active Obesity(Confirmed) Active Xhtckhu28 12/07/07 Resolved Staphylococcal 05/13/08 Resolved infectious gpxwjib33 Streptococcal sore 12/07/07 Resolved syuhak44 Contusion of Active hip(Confirmed) Upper respiratory 07/17/07 Resolved Urinary tract 12/29/10 Resolved infectious vpyxfdg85 Eskpgacl48 12/09/10 Resolved 1Data migrated from [employer] [...] Migrated from OBS ; Data migrated from [employer] on 10/26/2015. 2Result Comment: recombivaxhb. Migrated from OBS ; Data migrated from [employer] on 10/26/2015. 3Result Comment: tdap. Migrated from OBS ; Data migrated from [employer] on 10/26/2015. 4Result Comment: tdap. Migrated from OBS VIS: 08-12-08 given August 13, 2009. ; Data migrated from [employer] on 10/26/2015. Procedures Procedure Date Related Diagnosis [...]
--- OUTSIDE RECORDS SUMMARY | 2019-01-31 05:29 | XMS REPORT | Summary of Care ---
Author Author [facility] [place] Organization [facility] [place] Address Unknown Phone Unavailable Encounter HQ Antonettentr_alimolly(FIN) [id number] Date(s): 05/18/18 - 05/19/18 [facility] [place] [address] [place] [phone] Vital Signs No data available for this section Problem List Condition Effective Dates Status Health Status Informant Acute maxillary 07/09/12 Resolved sinusitis1 Acute pharyngitis2 08/26/10 Resolved Acute sinusitis3 09/15/09 Resolved 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 Depressive disorder5 Active Dyslipidemia6 07/17/07 Active Exposure to sexually 08/13/09 Resolved transmissible disorder7 Fatigue8 11/07/13 Active Gastroenteritis9 01/27/09 Resolved Gastroesophageal Active reflux dfcoxtw71 Hematoma(Confirmed) Active Jaw Active hematoma(Confirmed) Hypercholesterolemia 01/05/12 Active 11 Oonlknxicjcga64 05/28/14 Active Hypertensive 03/30/15 Active heqczzs02 Hypertriglyceridemia 03/30/15 Active 14 Hypothyroid(Confirme Active d) Pwxnmeneivztei73 05/13/08 Active Impaired fasting 08/13/09 Active ljwunxfcu90 Xrxxbzxjg81 12/09/10 Resolved Injury of hand18 09/22/14 Active Nuulaipr80 05/01/07 Active Long-term drug 05/13/08 Active fwnszri77 Malaise and 05/13/08 Active psvcuqz06 Menopausal 01/27/09 Active lqbayewy28 Murmur(Confirmed) Active Obesity(Confirmed) Active Slhohvl54 12/07/07 Resolved Staphylococcal 05/13/08 Resolved infectious dcsizrm64 Streptococcal sore 12/07/07 Resolved tiondi75 Contusion of Active hip(Confirmed) Upper respiratory 07/17/07 Resolved wnimmernh24 Urinary tract 12/29/10 Resolved infectious ecxannc42 Llsnwoyt44 12/09/10 Resolved 1Data migrated from [employer] [...] problems, e.g., rash, hives ; SOB Medications Percocet 10/325 oral tablet 1 tab, PO, Q8H, PRN Pain, 06/04/2018--excemption--patient going for surgery, X 30 day, # 90 tab, 0 Refill(s) Start Date: 06/04/18 Stop Date: 07/04/18 Status: Completed zolpidem 10 mg oral tablet 10 mg=1 tab, PO, Bedtime, X 30 day, # 30 tab, 3 Refill(s) Start Date: 05/18/18 Stop Date: 09/15/18 Status: Completed Results No data available for this section Immunizations Given and Recorded Vaccine Date Status Refusal Reason Hx hepatitis B vaccine1 04/14/10 Given Hx hepatitis B vaccine2 08/14/09 Given diphtheria/pertussis, acel/tetanus adult3 08/13/09 Given tetanus-diphtheria toxoids4 08/13/09 Given pneumococcal 23-valent vaccine 06/15/06 Given 1Result Comment: engerix. Migrated from OBS ; Data migrated from [employer] on 10/26/2015. 2Result Comment: recombivaxhb. Migrated from OBS ; Data migrated from [employer] on 10/26/2015. 3Result Comment: tdap. Migrated from OBS ; Data migrated from [employer] on 10/26/2015. 4Result Comment: tdap. Migrated from OBS VIS: 08-12-08 given August 13, 2009. ; Data migrated from [employer] on 10/26/2015. Procedures Procedure Date Related Diagnosis [...]
--- OUTSIDE RECORDS SUMMARY | 2019-01-31 05:29 | XMS REPORT | Summary of Care ---
Author Author [facility] [place] Organization [facility] [place] Address Unknown Phone Unavailable Encounter HQ Zackary_phil(FIN) [id number] Date(s): 12/21/18 - 12/22/18 [facility] [place] [address] [place] [address] [phone] Vital Signs No data available for this section Problem List Condition Effective Dates Status Health Status Informant Acute maxillary 07/09/12 Resolved sinusitis1 Acute pharyngitis2 08/26/10 Resolved Acute sinusitis3 09/15/09 Resolved 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 Depressive disorder5 Active Dyslipidemia6 07/17/07 Active Exposure to sexually 08/13/09 Resolved transmissible disorder7 Fatigue8 11/07/13 Active Gastroenteritis9 01/27/09 Resolved Gastroesophageal Active reflux ebdzdkl13 Hematoma(Confirmed) Active Jaw Active hematoma(Confirmed) Hypercholesterolemia 01/05/12 Active 11 Lkdfpltnbgblp07 05/28/14 Active Hypertensive 03/30/15 Active rpjaoad02 Hypertriglyceridemia 03/30/15 Active 14 Hypothyroid(Confirme Active d) Izenbbhuonorwh95 05/13/08 Active Impaired fasting 08/13/09 Active xxsprqbyc80 Uavxouasw93 12/09/10 Resolved Injury of hand18 09/22/14 Active Wjoefxhy50 05/01/07 Active Long-term drug 05/13/08 Active zwwjaln12 Malaise and 05/13/08 Active kehkkpt26 Menopausal 01/27/09 Active ahdzedel27 Murmur(Confirmed) Active Obesity(Confirmed) Active Zqteeks03 12/07/07 Resolved Staphylococcal 05/13/08 Resolved infectious ylrrqhr98 Streptococcal sore 12/07/07 Resolved layckf88 Contusion of Active hip(Confirmed) Upper respiratory 07/17/07 Resolved wilzmltmf14 Urinary tract 12/29/10 Resolved infectious fideoey91 Zhyrsitj53 12/09/10 Resolved 1Data migrated from GE Centricity [...] problems, e.g., rash, hives ; SOB Medications Viibryd 10 mg oral tablet 10 mg=1 tab, PO, Daily, # 30 tab, 2 Refill(s), Pharmacy: [facility] Start Date: 12/21/18 Stop Date: 03/21/19 Status: Ordered Results No data available for this section Immunizations Given and Recorded Vaccine Date Status Refusal Reason Hx hepatitis B vaccine1 04/14/10 Given Hx hepatitis B vaccine2 08/14/09 Given diphtheria/pertussis, acel/tetanus adult3 08/13/09 Given tetanus-diphtheria toxoids4 08/13/09 Given pneumococcal 23-valent vaccine 06/15/06 Given 1Result Comment: engerix. Migrated from OBS ; Data migrated from MakInnovation[employer] on 10/26/2015. 2Result Comment: recombivaxhb. Migrated from OBS ; Data migrated from [employer] on 10/26/2015. 3Result Comment: tdap. Migrated from OBS ; Data migrated from [employer] on 10/26/2015. 4Result Comment: tdap. Migrated from OBS VIS: 08-12-08 given August 13, 2009. ; Data migrated from [employer] on 10/26/2015. Procedures Procedure Date Related Diagnosis [...]
--- OUTSIDE RECORDS SUMMARY | 2019-01-31 05:29 | XMS REPORT | Summary of Care ---
Author Author [facility] [place] Organization [facility] [place] Address Unknown Phone Unavailable Encounter HQ Zackary_phil(FIN) [id number] Date(s): 01/15/18 - 01/16/18 [facility] [place] [address] [place] [address] [phone] Vital Signs No data available for this section Problem List Condition Effective Dates Status Health Status Informant Acute maxillary 07/09/12 Resolved sinusitis1 Acute pharyngitis2 08/26/10 Resolved Acute sinusitis3 09/15/09 Resolved 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 Depressive disorder5 Active Dyslipidemia6 07/17/07 Active Exposure to sexually 08/13/09 Resolved transmissible disorder7 Fatigue8 11/07/13 Active Gastroenteritis9 01/27/09 Resolved Gastroesophageal Active reflux qnclqes18 Hematoma(Confirmed) Active Jaw Active hematoma(Confirmed) Hypercholesterolemia 01/05/12 Active 11 Auryrgjycvprg91 05/28/14 Active Hypertensive 03/30/15 Active zystbig07 Hypertriglyceridemia 03/30/15 Active 14 Hypothyroid(Confirme Active d) Kjiimrgsbijngw93 05/13/08 Active Impaired fasting 08/13/09 Active zgremdxde49 Efscqcpza86 12/09/10 Resolved Injury of hand18 09/22/14 Active Pkwxmonv76 05/01/07 Active Long-term drug 05/13/08 Active agllqny54 Malaise and 05/13/08 Active abcvvak25 Menopausal 01/27/09 Active naeexgcu85 Murmur(Confirmed) Active Obesity(Confirmed) Active Yjgmcnx76 12/07/07 Resolved Staphylococcal 05/13/08 Resolved infectious rjhjizk35 Streptococcal sore 12/07/07 Resolved ylirmu45 Contusion of Active hip(Confirmed) Upper respiratory 07/17/07 Resolved wcpoqript38 Urinary tract 12/29/10 Resolved infectious ijgwvkf74 Sutwofzm23 12/09/10 Resolved 1Data migrated from [employer] [...] Migrated from OBS ; Data migrated from [email or web address] on 10/26/2015. 2Result Comment: recombivaxhb. Migrated from OBS ; Data migrated from [email or web address] on 10/26/2015. 3Result Comment: tdap. Migrated from OBS ; Data migrated from [email or web address] on 10/26/2015. 4Result Comment: tdap. Migrated from OBS VIS: 08-12-08 given August 13, 2009. ; Data migrated from [email or web address] on 10/26/2015. Procedures Procedure Date Related Diagnosis [...]
--- OUTSIDE RECORDS SUMMARY | 2019-01-31 05:29 | XMS REPORT | Summary of Care ---
Author Author [facility] [place] Organization [facility] [place] Address Unknown Phone Unavailable Encounter HQ Zackary_phil(FIN) [id number] Date(s): 01/24/18 - 01/25/18 [facility] [place] [address] [place] [phone] Vital Signs No data available for this [...] Jaw Active hematoma(Confirmed) Hypercholesterolemia 01/05/12 Active 11 Dsvwraumuspog95 05/28/14 Active Hypertensive 03/30/15 Active qlkeyui59 Hypertriglyceridemia 03/30/15 Active 14 Hypothyroid(Confirme Active d) Ubdolxfbbumcmz40 05/13/08 Active Impaired fasting 08/13/09 Active sqlwldwep31 Xblhfdwhj57 12/09/10 Resolved Injury of hand18 09/22/14 Active Zyweagaz81 05/01/07 Active Long-term drug 05/13/08 Active Malaise and 05/13/08 Active bwagxct78 Menopausal 01/27/09 Active mvyhwprh02 Murmur(Confirmed) Active Obesity(Confirmed) Active Wxsidvo04 12/07/07 Resolved Staphylococcal 05/13/08 Resolved infectious Streptococcal sore 12/07/07 Resolved kgsrbe55 Contusion of Active hip(Confirmed) Upper respiratory 07/17/07 Resolved vchlanavm55 Urinary tract 12/29/10 Resolved infectious hcoiaby46 Uuvzavkj48 12/09/10 Resolved 1Data migrated from GE [employer]ity [...] Migrated from OBS ; Data migrated from [email or web address] on 10/26/2015. 2Result Comment: recombivaxhb. Migrated from OBS ; Data migrated from [email or web address] on 10/26/2015. 3Result Comment: tdap. Migrated from OBS ; Data migrated from [email or web address] on 10/26/2015. 4Result Comment: tdap. Migrated from OBS VIS: 08-12-08 given August 13, 2009. ; Data migrated from AddSearch on 10/26/2015. Procedures Procedure Date Related Diagnosis [...]
--- OUTSIDE RECORDS SUMMARY | 2019-01-31 05:30 | XMS REPORT ---
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 Allergies, Adverse Reactions, Alerts Allergy Name Allergy Type Status Severity Reaction(s) Onset Date Inactive Date Treating Clinician Comments morphine DA Active MO 2018-05-25 00:00:00 Medications This patient has no known medications.
--- OUTSIDE RECORDS SUMMARY | 2019-01-31 05:30 | XMS REPORT | Summary of Care ---
Author Organization Unknown Address Unknown Phone Unavailable Encounter HQ Emi(SYED) [id number] Date(s): 03/30/15 - 03/30/15 [facility] Outpatient Imaging [address] [address] [phone] Discharge Disposition: Home Physician Attending: Manuela Melissa MD Vital Signs No data available for this section Problem List Condition Effective Dates Status Health Status Informant 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 breast1 Depressive disorder2 Active Dyslipidemia3 07/17/07 Active Fatigue4 11/07/13 Active Gastroesophageal Active reflux disease5 Hypercholesterolemia 01/05/12 Active 6 Hyperglycemia7 05/28/14 Active Hypothyroid(Confirme Active d) Hypothyroidism8 05/13/08 Active Impaired fasting 08/13/09 Active glycaemia9 Injury of hand10 09/22/14 Active Bdfvxdse62 05/01/07 Active Long-term drug 05/13/08 Active xmsemzp12 Malaise and 05/13/08 Active pyjrrjr98 Menopausal 01/27/09 Active dpcmlyrv41 Murmur(Confirmed) Active 1Data migrated from GE [employer] on 02/21/15. 2Data migrated from [employer] on 02/21/15. 3Data migrated from GE Cent[employer] on 02/21/15. 4Data migrated from GE Cent[employer]ity on 02/21/15. 5Data migrated from [employer] Cent[employer]ity on 02/21/15. 6Data migrated from GE Centricity on 02/21/15. 7Data migrated from [employer] on 02/21/15. 8Data migrated from [employer] on 02/21/15. 9Data migrated from [employer] on 02/21/15. 10Data migrated from [employer] on 02/21/15. 11Data migrated from [employer] on 02/21/15. 12Data migrated from [employer]ity on 02/21/15. 13Data migrated from [employer] on 02/21/15. 14Data migrated from [employer] on 02/21/15. Allergies, Adverse Reactions, Alerts Substance Reaction Severity Status morphine1 Active 1Data migrated from [employer] on 01/20/15. Originally documented as MORPHINE. Dermatological problems, e.g., rash, hives ; SOB Medications No data available for this section Results No data available for this section Immunizations Vaccine Date Refusal Reason pneumococcal 23-valent vaccine 06/15/06 Procedures Procedure Date Related Diagnosis Body Site Breast biopsy and related procedures Cholecystectomy Hysterectomy Laparoscopic sleeve gastrectomy Social History Social History Type Response Smoking Status Former smoker; Exposure to Tobacco Smoke None; Cigarette Smoking Last 365 Days No; Reg Smoking Cessation Counseling No Assessment and Plan No data available for this section
--- OUTSIDE RECORDS SUMMARY | 2019-01-31 05:30 | XMS REPORT | Summary of Care ---
Author Author [facility] Outpatient Imaging [facility] [place] Address Unknown Phone Unavailable Encounter HQ Emi(FIN) [id number] Date(s): 04/20/18 - 04/20/18 [facility] Out[facility] [place] [address] [place] [address] Encounter Diagnosis Other abnormal and inconclusive findings on diagnostic imaging of breast (Final) - 04/26/18 Mammographic calcification found on diagnostic imaging of breast (Final) - Discharge Disposition: Home or Self Care Attending Physician: Manuela Melissa MD Referring Physician: Manuela Melissa MD Vital Signs No data available for this section Problem List Condition Effective Dates Status Health Status Informant Acute maxillary 07/09/12 Resolved sinusitis1 Acute pharyngitis2 08/26/10 Resolved Acute sinusitis3 09/15/09 Resolved 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 Depressive disorder5 Active Dyslipidemia6 07/17/07 Active Exposure to sexually 08/13/09 Resolved transmissible disorder7 Fatigue8 11/07/13 Active Gastroenteritis9 01/27/09 Resolved Gastroesophageal Active reflux mtewbdr81 Hematoma(Confirmed) Active Jaw Active hematoma(Confirmed) Hypercholesterolemia 01/05/12 Active 11 Fiwecjlvwtdsc91 05/28/14 Active Hypertensive 03/30/15 Active pqsoyby50 Hypertriglyceridemia 03/30/15 Active 14 Hypothyroid(Confirme Active d) Bhywthytxfghab60 05/13/08 Active Impaired fasting 08/13/09 Active rdkopgrbt23 Piphlcqyn28 12/09/10 Resolved Injury of hand18 09/22/14 Active Mqvcgayw19 05/01/07 Active Long-term drug 05/13/08 Active jdffdep09 Malaise and 05/13/08 Active ztklyzw80 Menopausal 01/27/09 Active dfznxife47 Murmur(Confirmed) Active Obesity(Confirmed) Active Oobjnib96 12/07/07 Resolved Staphylococcal 05/13/08 Resolved infectious evzzjyz59 Streptococcal sore 12/07/07 Resolved yfikfi36 Contusion of Active hip(Confirmed) Upper respiratory 07/17/07 Resolved szzbusunv77 Urinary tract 12/29/10 Resolved infectious fekdpvg42 Llrnvpsn55 12/09/10 Resolved 1Data migrated from GE Centricity [...] Severity Status morphine1 Active 1Data migrated from [employer] on 01/20/15. Originally documented as MORPHINE. Dermatological [...] Migrated from OBS ; Data migrated from [employer] B[employer]is[employer] on 10/26/2015. 2Result Comment: recombivaxhb. Migrated from OBS ; Data migrated from [employer] on 10/26/2015. 3Result Comment: tdap. Migrated from OBS ; Data migrated from [employer] on 10/26/2015. 4Result Comment: tdap. Migrated from OBS VIS: 08-12-08 given August 13, 2009. ; Data migrated from [employer] on 10/26/2015. Procedures Procedure Date Related Diagnosis [...]
--- OUTSIDE RECORDS SUMMARY | 2019-01-31 05:30 | XMS REPORT | Summary of Care ---
Author Author [facility] Outpatient Imaging [facility]patient [facility] [place] Address Unknown Phone Unavailable Encounter HQ Zackary_phil(FIN) [id number] Date(s): 04/09/18 - 04/09/18 [facility] Outpatient Imaging [place] [address] [place], [place] [address]- [phone] Encounter Diagnosis Encounter for screening mammogram for malignant neoplasm of breast (Final) - 04/13/18 Discharge Disposition: Home or Self Care Attending Physician: Manuela Melissa MD Vital Signs No data available for this section Problem List Condition Effective Dates Status Health Status Informant Acute maxillary 07/09/12 Resolved sinusitis1 Acute pharyngitis2 08/26/10 Resolved Acute sinusitis3 09/15/09 Resolved 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 Depressive disorder5 Active Dyslipidemia6 07/17/07 Active Exposure to sexually 08/13/09 Resolved transmissible disorder7 Fatigue8 11/07/13 Active Gastroenteritis9 01/27/09 Resolved Gastroesophageal Active reflux ttcluby04 Hematoma(Confirmed) Active Jaw Active hematoma(Confirmed) Hypercholesterolemia 01/05/12 Active 11 Rvccikikenxqp15 05/28/14 Active Hypertensive 03/30/15 Active misnhag07 Hypertriglyceridemia 03/30/15 Active 14 Hypothyroid(Confirme Active d) Mwgomnhouphoyt21 05/13/08 Active Impaired fasting 08/13/09 Active hwmdeqqoj42 Lwxvtkahm47 12/09/10 Resolved Injury of hand18 09/22/14 Active Oswczkia68 05/01/07 Active Long-term drug 05/13/08 Active fpjoiby39 Malaise and 05/13/08 Active Menopausal 01/27/09 Active hrdfkyun08 Murmur(Confirmed) Active Obesity(Confirmed) Active Ybuluae80 12/07/07 Resolved Staphylococcal 05/13/08 Resolved infectious Streptococcal sore 12/07/07 Resolved ufzmlr16 Contusion of Active hip(Confirmed) Upper respiratory 07/17/07 Resolved xhjqevbbs92 Urinary tract 12/29/10 Resolved infectious Caezskav84 12/09/10 Resolved 1Data migrated from GE [employer]ricity [...] Migrated from OBS ; Data migrated from Ad[employer] on 10/26/2015. 2Result Comment: recombivaxhb. Migrated from OBS ; Data migrated from [employer] on 10/26/2015. 3Result Comment: tdap. Migrated from OBS ; Data migrated from [employer] on 10/26/2015. 4Result Comment: tdap. Migrated from OBS VIS: 08-12-08 given August 13, 2009. ; Data migrated from [employer] on 10/26/2015. Procedures Procedure Date Related Diagnosis [...]
--- OUTSIDE RECORDS SUMMARY | 2019-01-31 05:30 | XMS REPORT | Summary of Care ---
Author Organization Unknown Address Unknown Phone Unavailable Encounter HQ Zackary_phil(SYED) [id number] Date(s): 02/14/14 - 02/14/14 [facility] [address] Discharge Disposition: Home Physician Attending: Manuela Melissa MD Physician_Referring: Manuela Melissa MD Reason for Visit V76.10 PELVIC PAIN Problem List Condition Effective Dates Status Health Status Informant Hypothyroid(Confirme Active d) Murmur(Confirmed) Active Allergies, Adverse Reactions, Alerts Substance Reaction Severity Status morphine Active Medications No data available for this section Medications Administered During Your Visit No data available for this section Immunizations Vaccine Date Refusal Reason pneumococcal 23-valent vaccine 06/15/06 Social History Social History Type Response Smoking Status Former smoker, Exposure to Tobacco Smoke None, Cigarette Smoking Last 365 Days No, Reg Smoking Cessation Counseling No
--- OUTSIDE RECORDS SUMMARY | 2019-01-31 05:30 | XMS REPORT | Summary of Care ---
Author Author [facility] [place] Organization [facility] [place] Address Unknown Phone Unavailable Encounter PARKER Middleton(FIN) [id number] Date(s): 12/13/18 - 12/13/18 [facility] [place] [address] [place] [address] [phone] Discharge Disposition: Home or Self Care Attending Physician: Maxim Perdomo MD Vital Signs Most recent to 1 oldest [Reference Range]: Height 157.48 cm (12/13/18 1:29 PM) Temperature Oral 97.9 DegF [96.4-99.1 DegF] (12/13/18 1:29 PM) Blood Pressure 132/86 mmHg [90-140/60-90 mmHg] (12/13/18 1:29 PM) Peripheral Pulse 57 bpm Rate [60-100 bpm] *LOW* (12/13/18 1:29 PM) Weight 76.364 kg (12/13/18 1:29 PM) Body Mass Index 30.79 m2 (12/13/18 1:29 PM) Problem List Condition Effective Dates Status Health Status Informant Acute maxillary 07/09/12 Resolved sinusitis1 Acute pharyngitis2 08/26/10 Resolved Acute sinusitis3 09/15/09 Resolved 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 Depressive disorder5 Active Dyslipidemia6 07/17/07 Active Exposure to sexually 08/13/09 Resolved transmissible disorder7 Fatigue8 11/07/13 Active Gastroenteritis9 01/27/09 Resolved Gastroesophageal Active reflux pbnuret57 Hematoma(Confirmed) Active Jaw Active hematoma(Confirmed) Hypercholesterolemia 01/05/12 Active 11 Vtweqjqwfqawm05 05/28/14 Active Hypertensive 03/30/15 Active mbujhbw32 Hypertriglyceridemia 03/30/15 Active 14 Hypothyroid(Confirme Active d) Qrpwljggflbweq20 05/13/08 Active Impaired fasting 08/13/09 Active bclfbntuo85 Xpokxauki19 12/09/10 Resolved Injury of hand18 09/22/14 Active Tfibgang65 05/01/07 Active Long-term drug 05/13/08 Active prentbh71 Malaise and 05/13/08 Active cnusgpa44 Menopausal 01/27/09 Active gnhwfewl78 Murmur(Confirmed) Active Obesity(Confirmed) Active Jbbsirk47 12/07/07 Resolved Staphylococcal 05/13/08 Resolved infectious howorft60 Streptococcal sore 12/07/07 Resolved Contusion of Active hip(Confirmed) Upper respiratory 07/17/07 Resolved gdlupwzgr17 Urinary tract 12/29/10 Resolved infectious orwxhgu39 Iosigvqj90 12/09/10 Resolved 1Data migrated from [employer] [...] problems, e.g., rash, hives ; SOB Medications mirtazapine 30 mg oral tablet =2 tab, PO, Bedtime, # 180 tab, Refill(s) 3, [facility] Start Date: 12/02/18 Status: Ordered Percocet 10/325 oral tablet 1 tab, PO, Q8H, PRN Pain, 12/13/2018, X 30 day, # 90 tab, 0 Refill(s) Start Date: 12/13/18 Stop Date: 01/12/19 Status: Ordered Viibryd 10 mg oral tablet 10 mg=1 tab, PO, Daily, # 30 tab, 2 Refill(s), Pharmacy: [facility] [facility] [id number] Start Date: 12/13/18 Stop Date: 03/13/19 Status: Ordered Xanax 0.5 mg oral tablet 0.5 mg=1 tab, PO, TID, X 30 day, # 90 tab, 1 Refill(s) Start Date: 12/13/18 Stop Date: 02/11/19 Status: Ordered zolpidem 10 mg oral tablet 10 mg=1 tab, PO, Bedtime, X 30 day, # 30 tab, 5 Refill(s) Start Date: 12/13/18 Stop Date: 06/11/19 Status: Ordered Results No data available for this section Immunizations Given and Recorded Vaccine Date Status Refusal Reason Hx hepatitis B vaccine1 04/14/10 Given Hx hepatitis B vaccine2 08/14/09 Given diphtheria/pertussis, acel/tetanus adult3 08/13/09 Given tetanus-diphtheria toxoids4 08/13/09 Given pneumococcal 23-valent vaccine 06/15/06 Given 1Result Comment: engerix. Migrated from OBS ; Data migrated from [employer] on 10/26/2015. 2Result Comment: recombivaxhb. Migrated from OBS ; Data migrated from [employer] on 10/26/2015. 3Result Comment: tdap. Migrated from OBS ; Data migrated from [employer] on 10/26/2015. 4Result Comment: tdap. Migrated from OBS VIS: 08-12-08 given August 13, 2009. ; Data migrated from [email or web address] on 10/26/2015. Procedures Procedure Date Related Diagnosis [...]
--- OUTSIDE RECORDS SUMMARY | 2019-01-31 05:30 | XMS REPORT | Summary of Care ---
Author Organization Unknown Address Unknown Phone Unavailable Encounter HQ Emi([facility] [id number] Date(s): 09/24/14 - 09/24/14 [facility] [address] Outpatient Imaging [place] [address] [place], [place] [address] Discharge Disposition: Home Physician Attending: Maxim Perdomo MD Reason for Visit 959.4 - HAND INJURY NOS Problem List Condition Effective Dates Status Health [...]
--- OUTSIDE RECORDS SUMMARY | 2019-01-31 05:30 | XMS REPORT | Summary of Care ---
Author Author [facility] Organization [facility] Address Unknown Phone Unavailable Encounter PARKER Middleton(SYED) [id number] Date(s): 01/13/17 - 01/13/17 [facility] [address] [place] [address]- Discharge Disposition: Home or Self Care Attending Physician: Manuela Melsisa MD Referring Physician: Manuela Melissa MD Vital [...] Active Gastroenteritis9 01/27/09 Resolved Gastroesophageal Active reflux cppkjvy99 Hypercholesterolemia 01/05/12 Active 11 Goxlkkezfayru77 05/28/14 Active Hypertensive 03/30/15 Active Hypertriglyceridemia 03/30/15 Active 14 Hypothyroid(Confirme Active d) Kkzhmidzxsrgfq06 05/13/08 Active Impaired fasting 08/13/09 Active uafcdsofq45 Dnlxhvygq43 12/09/10 Resolved Injury of hand18 09/22/14 Active Vdzhyetb88 05/01/07 Active Long-term drug 05/13/08 Active bcwbvox00 Malaise and 05/13/08 Active yhorgpx12 Menopausal 01/27/09 Active iutcglqo75 Murmur(Confirmed) Active Obesity(Confirmed) Active Ntinvtr87 12/07/07 Resolved Staphylococcal 05/13/08 Resolved infectious lplgotf74 Streptococcal sore 12/07/07 Resolved nbldsu99 Upper respiratory 07/17/07 Resolved qnvflanyo41 Urinary tract 12/29/10 Resolved infectious nzzxdyy85 Rkzziyxj76 12/09/10 Resolved 1Data migrated from [employer] [...] Migrated from OBS ; Data migrated from [employer] on 10/26/2015. 2Result Comment: engerix. Migrated from OBS ; Data migrated from [employer] on 10/26/2015. 3Result Comment: recombivaxhb. Migrated from OBS ; Data migrated from [employer] on 10/26/2015. 4Result Comment: tdap. Migrated from OBS VIS: 08-12-08 given August 13, 2009. ; Data migrated from [employer] on 10/26/2015. Procedures Procedure Date Related Diagnosis Body Site Breast biopsy and related procedures Cholecystectomy Hysterectomy Laparoscopic sleeve gastrectomy Tonsillectomy Social History Social History Type Response Smoking Status Former smoker; Exposure to Tobacco Smoke None; Cigarette Smoking Last 365 Days No; Reg Smoking Cessation Counseling No Assessment and Plan No data available for this section
[2019-01-31 07:51] VITALS: BP 109/84
== END | disposition home or self-care (01) ==
LOC: OR 05:25
PROVIDERS: ATTEND Physical Medicine & Rehabilitation Pain Medicine
DX: G90.522 Complex regional pain syndrome I of left lower limb (principal); K21.9 Gastro-esophageal reflux disease without esophagitis; E11.9 Type 2 diabetes mellitus without complications; E03.9 Hypothyroidism, unspecified; F32.9 Major depressive disorder, single episode, unspecified; F41.9 Anxiety disorder, unspecified; Z88.6 Allergy status to analgesic agent; Z01.810 Encounter for preprocedural cardiovascular examination
CPT/HCPCS: 64520; 77003; 93005; J2001; J2250; J2704; Q9967

== ENCOUNTER → 2019-02-07 | Day surgery (SDC) | payer OTHER ==
[~2019-02-07] MED LIST changes: +LIDOCAINE HCL 2% LOCAL INJ 5 ML SDV VIAL INJ ONE
--- OUTSIDE RECORDS SUMMARY | 2019-02-07 05:33 | XMS REPORT | Clinical Summary ---
Author Author [facility] Organization [facility] Address Unknown Phone Unavailable Care Team Providers Care Lead Caster Helper Name Role Phone Asked, No Pcp PCP [...] DAILY, # 90 tab, 2 Refill(s), Pharmacy: Pharmacy Active mirtazapine (REMERON) 30 See 0 MG tablet Instructions, 8 TAKE 2 TABLETS BY MOUTH AT BEDTIME, # 180 tab, 2 Refill(s), Pharmacy: Pharmacy Active topiramate (TOPAMAX) 50 50 mg=1 tab, 0 MG tablet PO, BID, # 8 180 tab, 1 Refill(s), Pharmacy: Pharmacy Active zolpidem (AMBIEN) 10 mg 10 [...] extremity 01/29/2019 Office Visit Orthopedic Surgery Mayank Pearsno MD S/P knee surgery (Primary Dx); Rupture [...] encounter 06/01/2018 Office Visit Orthopedic Surgery after 02/06/2018 Social History Date Tobacco Use Types Packs/Day [...] Description Date Type Specialty Mayank Pearson MD [address] [phone] Edita Cid 02/08/2019 Office Visit Physical Therapy Mayank Pearson MD [address] [phone] Edita Cid 02/11/2019 Office Visit Physical Therapy Mayank Pearson MD [address] [phone] Edita Cid 02/22/2019 Office Visit Physical Therapy Health Maintenance Due Date Last Done Comments CERVICAL CANCER SCREENING 01/12/1977 BREAST CANCER SCREENING 01/12/2006 COLON CANCER SCREENING 01/12/2006 SHINGLES VACCINES (#1) 01/12/2006 INFLUENZA VACCINE 04/25/2019 Implants Device Identifier Shelf Expiration Date Model / Serial / Lot Implanted Type Area Manufactur er 10/16/2022 [id number] / [id number] / LOT NA Tendon Achls Allograft Leader W/ Human Left: Knee MUSCULOSKE Clcns 19.5-38cm 10-20mm - Tissue LETAL [id number] - [id number] Implants TRANSPLANT Implanted: Qty: 1 on 06/07/2018 by [facility] Mayank Pearson MD 02/22/2023 [place] [id number] 45 / / [id number] Suture [place], Peek Corkscrew - IPM Left: Knee ARTHREX [id number] IMPLANT ORTHOPEDIC Implanted: Qty: 1 on 06/07/2018 by DEVICES S Mayank Pearson MD 10/18/2022 [id number] / / [id number] Screw Intrfrnce Plla Cordova 7x20mm Orthopedic Left: Knee ORDONEZ AND Biosure - [id number] Trauma NEPHEW Implanted: Qty: 1 on 06/07/2018 by Implants ENDOSCOPY Mayank Pearson MD 09/24/2019 [place] [id number] / / [id number] Suture [place] Dbl Loaded Biocomp Orthopedic Left: Knee ARTHREX Swvlk 4.75mm X 22mm - [id number] Trauma INC Implanted: Qty: 1 on 06/07/2018 by Mayank Mays MD 09/24/2022 AR [id number] / / [id number] Screw Tib 9mm Graftbolt - Orthopedic Left: Knee ARTHREX [id number] Trauma INC Implanted: Qty: 1 on 06/07/2018 by Implants Mayank Pearson MD Procedures Comments Procedure Name Priority Date/Time Associated Diagnosis XR KNEE 1 OR 2 VW LEFT Routine 06/12/2018 Rupture of anterior 2:06 PM CDT cruciate ligament of left knee, subsequent encounter THYROID STIMULATING Routine 06/08/2018 HORMONE 7:33 PM CDT T4, FREE Routine 06/08/2018 7:33 PM CDT POC GLUCOSE Routine 06/07/2018 1:05 PM CDT WY AN ELECTIVE Routine 06/07/2018 ENDOTRACHEAL AIRWAY 10:13 AM CDT Procedure Note - Robb Boss, LIME FILTER OPERATOR - 06/07/2018 10:13 AM CDT Airway Date/Time: [...] Anesthesio logist: ROBB PALMA Performed by: Anesthesio logist Preprocedu re: patient identified , IV checked, [...] 05/25/2018 EXTERNAL STUDY 2:33 PM CDT after 02/06/2018 Results * XR Knee 1 Or 2 Vw Left (06/12/2018 2:06 PM CDT) Narrative Performed At [facility] in good position Performing Organization Address [facility] Phone Number [facility] [address] [place] [address] * Thyroid stimulating hormone (06/08/2018 7:33 PM CDT) TSH 6.05 (H) 0.27 - 4.20 uIU/mL [facility] DEPARTMENT OF PATHOLOGY AND GENOMIC MEDICINE Specimen Plasma specimen Performing Organization Address [facility] Cent[facility]ode Phone Number [facility] [place] [address] PATHOLOGY AND GENOMIC MEDICINE * T4, free (06/08/2018 7:33 PM CDT) T4, free 1.6 0.9 - 1.7 ng/dL [facility] DEPARTMENT OF PATHOLOGY AND GENOMIC MEDICINE Specimen Plasma specimen Performing Organization Address [facility] Cent[facility]ode Phone Number [facility] [place] [address] PATHOLOGY AND GENOMIC MEDICINE * POC glucose (06/07/2018 1:05 PM CDT) Only the most recent of 2 results within the time period is included. POC glucose 173 (H) 65 - 99 mg/dL [facility] DEPARTMENT OF Comment: PATHOLOGY AND [facility] Notified RN GENOMIC MEDICINE Meter ID: [id number] Ham Passer: Reno Ambrose Performing Organization Address City/[facility]/Zipcode Phone Number [facility] DEPARTMENT OF [address] [place] [address] PATHOLOGY AND GENOMIC MEDICINE * MRI Lower Extremity External Study (05/25/2018 2:33 PM CDT) Narrative Performed At This exam was not acquired at a [facility] facility and has not been [facility] interpreted by a [facility] Provider.The exam was imported into our imaging system for comparisons purposes. Performing Organization Address City/State/Zipcode Phone Number [facility] [address] [place] [address] after 02/06/2018 Insurance Payer Benefit Subscriber ID Type Phone Address Plan / Group CIGNA CIGNA OPEN xxxxxxxxxxx HMO ACCESS/NET WORK Advance Directives Patient has advance care planning documents on file. For more information, truong gutierrez contact: Carlyle Huang [address] [place] [phone]
[2019-02-07 07:25] VITALS: BP 122/80
== END | disposition home or self-care (01) ==
LOC: OR 05:30
PROVIDERS: ATTEND Physical Medicine & Rehabilitation Pain Medicine
DX: G90.522 Complex regional pain syndrome I of left lower limb (principal); K58.9 Irritable bowel syndrome, unspecified; K21.9 Gastro-esophageal reflux disease without esophagitis; E11.9 Type 2 diabetes mellitus without complications; E03.9 Hypothyroidism, unspecified; F32.9 Major depressive disorder, single episode, unspecified; Z88.6 Allergy status to analgesic agent
CPT/HCPCS: 36415; 64520; 77003; 82948; J2001 ×2; J2250; J2704; Q9967

== ENCOUNTER → 2019-02-14 | Day surgery (SDC) | payer OTHER ==
[~2019-02-14] MED LIST changes: +DEXAMETHASONE SOD PHOS 10 MG/1 ML VIAL ONE; -LIDOCAINE HCL 2% LOCAL INJ 5 ML SDV VIAL INJ ONE
--- OUTSIDE RECORDS SUMMARY | 2019-02-14 05:40 | XMS REPORT | Clinical Summary ---
Author Author Tadeo [facility] Organization [facility] Address Unknown Phone Unavailable Care Team Providers Care Railway Engineer Name Role Phone Asked, No Pcp PCP [...] DAILY, # 90 tab, 2 Refill(s), Pharmacy: [facility] Active mirtazapine (REMERON) 30 See 0 MG tablet Instructions, 8 TAKE 2 TABLETS BY MOUTH AT BEDTIME, # 180 tab, 2 Refill(s), Pharmacy: [facility] Active topiramate (TOPAMAX) 50 50 mg=1 tab, 0 MG tablet PO, BID, # 8 180 tab, 1 Refill(s), Pharmacy: [facility] Active zolpidem (AMBIEN) 10 mg [...] encounter 06/01/2018 Office Visit Orthopedic Surgery after 02/13/2018 Social History Date Tobacco Use Types Packs/Day [...] Date Type Specialty Mayank Pearson MD [address] [phone] Edita Cid 02/22/2019 Office Visit Physical Therapy Health Maintenance Due Date Last Done Comments BREAST CANCER SCREENING 01/12/2006 COLON CANCER SCREENING 01/12/2006 SHINGLES VACCINES (#1) 01/12/2006 INFLUENZA VACCINE 04/25/2019 Implants Device Identifier Shelf Expiration Date Model / Serial / Lot Implanted Type Area Manufactur er 10/16/2022 [id number] / [id number] / LOT NA Tendon Achls Allograft Leader W/ Human Left: Knee MUSCULOSKE Clcns 19.5-38cm 10-20mm - Tissue LETAL [id number] - [id number] Implants TRANSPLANT Implanted: Qty: 1 on 06/07/2018 by [facility] Mayank Pearson MD 02/22/2023 AR [id number] 45 / / [id number] Suture [place], Peek Corkscrew - IPM Left: Knee ARTHREX [id number] IMPLANT ORTHOPEDIC Implanted: Qty: 1 on 06/07/2018 by DEVICES S Mayank Pearson MD 10/18/2022 [id number] / / [id number] Screw Intrfrnce Plla Cordova 7x20mm Orthopedic Left: Knee ORDONEZ AND Bios[employer] - [id number] Trauma NEPHEW Implanted: Qty: 1 on 06/07/2018 by Implants ENDOSCOPY Mayank Pearson MD 09/24/2019 AR [id number] / / [id number] Suture [place] Dbl Loaded Biocomp Orthopedic Left: Knee ARTHREX Swvlk 4.75mm X 22mm - [id number] Trauma INC Implanted: Qty: 1 on 06/07/2018 by Mayank Mays MD 09/24/2022 AR [id number] 09 / / [id number] Screw Tib 9mm Graftbolt - Orthopedic Left: Knee ARTHREX [id number] Tra[employer] INC Implanted: Qty: 1 on 06/07/2018 [...] POC GLUCOSE Routine 06/07/2018 1:05 PM CDT SD AN ELECTIVE Routine 06/07/2018 ENDOTRACHEAL AIRWAY 10:13 AM CDT Procedure Note - Robb Boss CRNA - 06/07/2018 10:13 AM CDT Airway Date/Time: [...] 05/25/2018 EXTERNAL STUDY 2:33 PM CDT after 02/13/2018 Results * XR Knee 1 Or 2 Vw Left (06/12/2018 2:06 PM CDT) Specimen Narrative Performed At [facility] [employer] in good position Performing Organization Address City/State/Zipcode Phone Number [facility] [address] [place] [address] * Thyroid stimulating hormone (06/08/2018 7:33 PM CDT) TSH 6.05 (H) 0.27 - 4.20 uIU/mL [facility] DEPARTMENT OF PATHOLOGY AND GENOMIC MEDICINE Specimen Plasma specimen Performing Organization Address City/[facility] Phone Number [facility] DEPARTMENT OF [address] [place] [address] PATHOLOGY AND GENOMIC MEDICINE * T4, free (06/08/2018 7:33 PM CDT) Pathologist [facility] T4, free 1.6 0.9 - 1.7 ng/dL [facility] DEPARTMENT OF PATHOLOGY AND GENOMIC MEDICINE Specimen Plasma specimen Performing Organization Address City/[facility] Hospitalcode Phone Number [facility] DEPARTMENT OF [address] [place] [address] PATHOLOGY AND GENOMIC MEDICINE * POC glucose (06/07/2018 1:05 PM CDT) Only the most recent of 2 results within the time period is included. POC glucose 173 (H) 65 - 99 mg/dL [facility] DEPARTMENT Comment: OF PATHOLOGY [facility] Notified RN AND GENOMIC Meter ID: [id number] MEDICINE Supply Aide: Renoarabella Beckian Specimen Performing Organization Address City/[facility]/Zipcode Phone Number [facility] DEPARTMENT OF [address] [place] [address] PATHOLOGY AND GENOMIC MEDICINE * MRI Lower Extremity External Study (05/25/2018 2:33 PM CDT) Specimen Narrative Performed At This exam was not acquired at a [facility] facility and has not been [facility] interpreted by a [facility] Provider.The exam was imported into our imaging system for comparisons purposes. Performing Organization Address [facility] Hospital[facility]i Phone Number [facility] [address] [place] [phone] after 02/13/2018 Insurance Type Payer Benefit Subscriber ID Effective Phone Address Plan / Dates Group HMO CIGNA CIGNA OPEN xxxxxxxxxxx 2016-P ACCESS/NET resent WORK Advance Directives Patient has advance care planning documents on file. For more information, truong gutierrez contact: [facility] [address] [place] [phone]
--- OUTSIDE RECORDS SUMMARY | 2019-02-14 05:41 | XMS REPORT | Summary of Care ---
Author Author [facility] [place] Organization [facility] [place] Address Unknown Phone Unavailable Encounter HQ Merryr_phil(FIN) [id number] Date(s): 07/19/18 - 07/20/18 [facility] [place] [address] [place] [address]- [phone] Vital Signs No data available for this [...] Jaw Active hematoma(Confirmed) Hypercholesterolemia 01/05/12 Active 11 Rpnhyehnmoxum41 05/28/14 Active Hypertensive 03/30/15 Active fcjyhap69 Hypertriglyceridemia 03/30/15 Active 14 Hypothyroid(Confirme Active d) Vfwafjidgfczpj78 05/13/08 Active Impaired fasting 08/13/09 Active embwkjlkf84 Qqvldfimb16 12/09/10 Resolved Injury of hand18 09/22/14 Active Rimlnstw89 05/01/07 Active Long-term drug 05/13/08 Active aqbkihs98 Malaise and 05/13/08 Active Menopausal 01/27/09 Active ycwndmbn81 Murmur(Confirmed) Active Obesity(Confirmed) Active Srxgjjq72 12/07/07 Resolved Staphylococcal 05/13/08 Resolved infectious asbcfza90 Streptococcal sore 12/07/07 Resolved iudcxg08 Contusion of Active hip(Confirmed) Upper respiratory 07/17/07 Resolved vnizcuxqz19 Urinary tract 12/29/10 Resolved infectious xaisgtr18 Uvksqdda86 12/09/10 Resolved 1Data migrated from [employer] [...] Migrated from OBS ; Data migrated from [employer] on 10/26/2015. 2Result Comment: recombivaxhb. Migrated from OBS ; Data migrated from [employer] on 10/26/2015. 3Result Comment: tdap. Migrated from OBS ; Data migrated from [employer] on 10/26/2015. 4Result Comment: tdap. Migrated from OBS VIS: 08-12-08 given August 13, 2009. ; Data migrated from [employer] on 10/26/2015. Procedures Procedure Date Related Diagnosis [...]
--- OUTSIDE RECORDS SUMMARY | 2019-02-14 05:41 | XMS REPORT | Summary of Care ---
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 Depressive disorder5 Active Dyslipidemia6 07/17/07 Active Exposure to sexually 08/13/09 Resolved transmissible disorder7 Fatigue8 11/07/13 Active Gastroenteritis9 01/27/09 Resolved Gastroesophageal Active reflux mnnrguo98 Hematoma(Confirmed) Active Jaw Active hematoma(Confirmed) Hypercholesterolemia 01/05/12 Active 11 Mwuzkczmkldaz84 05/28/14 Active Hypertensive 03/30/15 Active qrukjer11 Hypertriglyceridemia 03/30/15 Active 14 Hypothyroid(Confirme Active d) Rbepirhrtusrcq43 05/13/08 Active Impaired fasting 08/13/09 Active udmoazowi99 Rxfpuueyl26 12/09/10 Resolved Injury of hand18 09/22/14 Active Zbbbytzr99 05/01/07 Active Long-term drug 05/13/08 Active yqkrnqe73 Malaise and 05/13/08 Active wxehlhk05 Menopausal 01/27/09 Active xddwmvob65 Murmur(Confirmed) Active Obesity(Confirmed) Active Bkvvaux60 12/07/07 Resolved Staphylococcal 05/13/08 Resolved infectious mjmmsud70 Streptococcal sore 12/07/07 Resolved zyqkza89 Contusion of Active hip(Confirmed) Upper respiratory 07/17/07 Resolved Urinary tract 12/29/10 Resolved infectious Doncvuom15 12/09/10 Resolved 1Data migrated from [employer] [...] # 90 tab, 1 Refill(s) Start Date: 07/19/18 Stop Date: 08/27/18 Status: Completed Results No data available for this section Immunizations Given and Recorded Vaccine Date Status Refusal Reason Hx hepatitis B vaccine1 04/14/10 Given Hx hepatitis B vaccine2 08/14/09 Given diphtheria/pertussis, acel/tetanus adult3 08/13/09 Given tetanus-diphtheria toxoids4 08/13/09 Given pneumococcal 23-valent vaccine 06/15/06 Given 1Result Comment: engerix. Migrated from OBS ; Data migrated from [employer] on 10/26/2015. 2Result Comment: recombivaxhb. Migrated from OBS ; Data migrated from [employer] on 10/26/2015. 3Result Comment: tdap. Migrated from OBS ; Data migrated from [employer] on 10/26/2015. 4Result Comment: tdap. Migrated from OBS VIS: 08-12-08 given August 13, 2009. ; Data migrated from [employer] on 10/26/2015. Procedures Procedure Date Related Diagnosis [...]
--- OUTSIDE RECORDS SUMMARY | 2019-02-14 05:41 | XMS REPORT | Continuity of Care Document ---
Author Author [facility] Interface Address Unknown Phone Unavailable Problems Problem Status Onset Date Classification Date Reported Comments Source Other abnormal and inconclusive findings on diagnostic imaging of breast 04/27/2018 11/07/2018 RENETTA Hernandez Encounter for screening mammogram for malignant neoplasm of breast 04/14/2018 10/27/2018 AZUL Horn DX: Z12.31=ENCOUNTER FOR SCREENING MAMMO Active 01/09/2017 [facility] Hypertensive episode<sup>13</sup> Active 03/30/2015 Problem 02/08/2019 Data migrated from its learningcity on 04/29/15. [facility], AZUL Horn,[facility], AZUL Segovialand Hypertriglyceridemia<sup>14</sup> Active 03/30/2015 Problem 02/08/2019 Data migrated from [employer] on 04/29/15. [facility], AZUL Horn,[facility], [place] Injury of hand<sup>10</sup> Active 09/22/2014 Problem 04/02/2015 10Data migrated from [employer] on 02/21/15. AZUL Segovialand Injury of hand<sup>18</sup> Active 09/22/2014 Problem 02/08/2019 Data migrated from [employer] on 02/21/15. [facility], AZUL Horn,[facility], OPID [place] Hyperglycemia<sup>7</sup> Active 05/28/2014 Problem 04/02/2015 7Data migrated from [employer] on 02/21/15. AZUL Segovialand Hyperglycemia<sup>12</sup> Active 05/28/2014 Problem 02/08/2019 Data migrated from [employer] on 02/21/15. [facility], AZUL Horn,[facility], AZUL Segovialand ROUTINE Active 02/11/2014 [facility] V76.10 PELVIC PAIN Active 02/11/2014 [facility] UNK Active 11/26/2013 [facility] Fatigue<sup>4</sup> Active 11/07/2013 Problem 04/02/2015 4Data migrated from [employer] on 02/21/15. [facility] [place] Fatigue<sup>8</sup> Active 11/07/2013 Problem 02/08/2019 Data migrated from [employer] on 02/21/15. [facility], SUSSYD K[place], [place], [facility] [place] Acute maxillary sinusitis<sup>1</sup> Resolved 07/09/2012 Problem 02/08/2019 Data migrated from [employer] on 04/11/15. [facility], OPID [place], [place], [facility] [place] Hypercholesterolemia<sup>6</sup> Active 01/05/2012 Problem 04/02/2015 6Data migrated from [employer] on 02/21/15. [facility] [place] Hypercholesterolemia<sup>11</sup> Active 01/05/2012 Problem 02/08/2019 Data migrated from [employer] on 02/21/15. [facility], OPID [place], [place], [facility] [place] Benign tumor of breast<sup>1</sup> Active 02/09/2011 Problem 04/02/2015 1Data migrated from [employer] on 02/21/15. [facility] [place] Benign tumor of breast<sup>4</sup> Active 02/09/2011 Problem 02/08/2019 Data migrated from [employer] on 02/21/15. [facility], SUSSYD [place], [place], [facility] [place] Urinary tract infectious disease<sup>27</sup> Resolved 12/29/2010 Problem 02/08/2019 Data migrated from [employer] on 04/11/15. [facility], OPID [place], [place], [facility] [place] Influenza<sup>17</sup> Resolved 12/09/2010 Problem 02/08/2019 Data migrated from [employer] on 04/11/15. [facility], OPID [place], [place], [facility] [place] Vomiting<sup>28</sup> Resolved 12/09/2010 Problem 02/08/2019 Data migrated from [employer] on 04/11/15. [facility], SUSSYD Kory, [place], [facility] [place] Acute pharyngitis<sup>2</sup> Resolved 08/26/2010 Problem 02/08/2019 Data migrated from [employer] on 04/11/15. [facility], AZUL Horn, [place], [facility] [place] Acute sinusitis<sup>3</sup> Resolved 09/15/2009 Problem 02/08/2019 Data migrated from [employer] on 04/11/15. [facility], AZUL Horn, [place], [facility] [place] Impaired fasting glycaemia<sup>9</sup> Active 08/13/2009 Problem 04/02/2015 9Data migrated from [employer] on 02/21/15. [facility] [place] Exposure to sexually transmissible disorder<sup>7</sup> Resolved 08/13/2009 Problem 02/08/2019 Data migrated from [employer] on 04/11/15. Medical Group, AZUL Horn,[facility], [facility] [place] Impaired fasting glycaemia<sup>16</sup> Active 08/13/2009 Problem 02/08/2019 Data migrated from [employer] on 02/21/15. [facility], AZUL Horn, [place], [facility] [place] Menopausal syndrome<sup>14</sup> Active 01/27/2009 Problem 04/02/2015 14Data migrated from [employer] on 02/21/15. AZUL Segovialand Gastroenteritis<sup>9</sup> Resolved 01/27/2009 Problem 02/08/2019 Data migrated from [employer] on 04/11/15. [facility], AZUL Horn, [place], [facility] [place] Menopausal syndrome<sup>22</sup> Active 01/27/2009 Problem 02/08/2019 Data migrated from [employer] on 02/21/15. [facility], AZUL Horn, [place], [facility] [place] Hypothyroidism<sup>8</sup> Active 05/13/2008 Problem 04/02/2015 8Data migrated from [employer] on 02/21/15. AZUL Segovialand Long-term drug therapy<sup>12</sup> Active 05/13/2008 Problem 04/02/2015 12Data migrated from [employer] on 02/21/15. [facility] [place] Malaise and fatigue<sup>13</sup> Active 05/13/2008 Problem 04/02/2015 13Data migrated from [employer] on 02/21/15. [facility] [place] Hypothyroidism<sup>15</sup> Active 05/13/2008 Problem 02/08/2019 Data migrated from [employer] on 02/21/15. [facility], OPID [place], [place], [facility] [place] Long-term drug therapy<sup>20</sup> Active 05/13/2008 Problem 02/08/2019 Data migrated from [employer] on 02/21/15. [facility], OPID [place], [place], [facility] [place] Malaise and fatigue<sup>21</sup> Active 05/13/2008 Problem 02/08/2019 Data migrated from [employer] on 02/21/15. [facility], OPID [place], [place], [facility] [place] Staphylococcal infectious disease<sup>24</sup> Resolved 05/13/2008 Problem 02/08/2019 Data migrated from [employer] on 04/10/15. [facility], OPID [place], [place], [facility] [place] Otalgia<sup>23</sup> Resolved 12/07/2007 Problem 02/08/2019 Data migrated from [employer] on 04/11/15. [facility], OPID [place], [place], [facility] [place] Streptococcal sore throat<sup>25</sup> Resolved 12/07/2007 Problem 02/08/2019 Data migrated from [employer] on 04/11/15. [facility], OPID [place], [place], [facility] [place] Dyslipidemia<sup>3</sup> Active 07/17/2007 Problem 04/02/2015 3Data migrated from [employer] on 02/21/15. [facility] [place] Dyslipidemia<sup>6</sup> Active 07/17/2007 Problem 02/08/2019 Data migrated from [employer] on 02/21/15. [facility], OPID [place], [place], [facility] [place] Upper respiratory infection<sup>26</sup> Resolved 07/17/2007 Problem 02/08/2019 Data migrated from [employer] on 04/11/15. [facility], OPID [place], [place], [facility] [place] Insomnia<sup>11</sup> Active 05/01/2007 Problem 04/02/2015 11Data migrated from [employer] on 02/21/15. [facility] [place] Insomnia<sup>19</sup> Active 05/01/2007 Problem 02/08/2019 Data migrated from [employer] on 02/21/15. [facility], [facility] [place], [place], [facility] [place] Hypothyroid Active Problem 10/27/2018 [place], [facility] [place] Murmur Active Problem 10/27/2018 [place], [facility] [place] Depressive disorder<sup>2</sup> Active Problem 04/02/2015 2Data migrated from [employer] on 02/21/15. [facility] [place] Gastroesophageal reflux disease<sup>5</sup> Active Problem 04/02/2015 5Data migrated from [employer] on 02/21/15. [facility] [place] Hypothyroid Active Problem 11/07/2018 [place], [facility] [place] Murmur Active Problem 11/07/2018 [facility], [facility] [place] Depressive disorder<sup>5</sup> Active Problem 02/08/2019 Data migrated from [employer] on 02/21/15. [facility], [facility] [place], [place], [facility] [place] Gastroesophageal reflux disease<sup>10</sup> Active Problem 02/08/2019 Data migrated from [employer] on 02/21/15. [facility], [facility] [place], [place], [facility] [place] Hematoma Active Problem 02/08/2019 [facility], [facility] [place], [facility] [place] Jaw hematoma Active Problem 02/08/2019 [facility], [facility] [place], [facility] [place] Hypothyroid Active Problem 02/08/2019 [facility] Murmur Active Problem 02/08/2019 [facility] Obesity Active Problem 02/08/2019 [facility], [facility] [place], [place], [facility] [place] Contusion of hip Active Problem 02/08/2019 [facility], [facility] [place], AZUL [place] Mammographic calcification found on diagnostic imaging of breast 11[facility]07/[facility] [place] [facility] Active [facility] Medications Medication Details Route Status Patient Instructions Ordering Provider Order Date Source vilazodone hydrochloride 20 MG Oral Tablet [Viibryd] 20 mg=1 tab, PO, Daily, # 30 tab, 3 Refill(s), Pharmacy: [place] [address] Active 02/05/2019 [facility] vilazodone hydrochloride 10 MG Oral Tablet [Viibryd] 10 mg=1 tab, PO, Daily, # 30 tab, 2 Refill(s), Pharmacy: [facility] Active 12/21/2018 [facility] Alprazolam [...] Daily, # 30 tab, 2 Refill(s), Pharmacy: [place] [address] Active 12/13/2018 [facility] mirtazapine 30 mg oral tablet =2 tab, PO, Bedtime, # 180 tab, Refill(s) 3, Pharmacy: [facility] Active 12/03/2018 [facility] Alprazolam 0.5 MG Oral Tablet [Xanax] 0.5 mg=1 tab, PO, TID, X 30 day, # 90 tab, 1 Refill(s) No Longer Active 07/19/2018 [facility] Alprazolam 0.5 MG Oral Tablet [Xanax] 0.5 mg=1 tab, PO, TID, X 10 day, # 30 tab, 0 Refill(s) No Longer Active 07/09/2018 [facility] Fluoxetine 10 MG Oral Capsule [Prozac] 10 mg=1 cap, PO, Daily, X 30 day, # 30 cap, 1 Refill(s), Pharmacy: [place] [address] No Longer Active 07/05/2018 [facility] Lorazepam 1 MG Oral Tablet [Ativan] 1 mg=1 tab, PO, TID, X 30 day, # 90 tab, 1 Refill(s) No Longer Active 07/05/2018 [facility] 24 HR Bupropion Hydrochloride 150 MG Extended Release Tablet [Wellbutrin] 150 mg=1 tab, PO, Daily, please do not do the prozac, # 30 tab, 1 Refill(s), Pharmacy: [place] [address] No Longer Active 06/21/2018 [facility] Fluoxetine 10 MG Oral Capsule [Prozac] 10 mg=1 cap, PO, Daily, X 30 day, # 30 cap, 1 Refill(s), Pharmacy: [place] [address] No Longer Active 06/21/2018 [facility] Lorazepam 0.5 MG Oral Tablet [Ativan] 0.5 mg=1 tab, PO, TID, X 30 day, # 90 tab, 0 Refill(s) No Longer Active 06/21/2018 [facility] Acetaminophen 325 MG / Oxycodone Hydrochloride 10 MG Oral Tablet [Percocet 10/325] 1 tab, PO, Q8H, PRN Pain, 06/04/2018--excemption--patient going for surgery, X 30 day, # 90 tab, 0 Refill(s) No Longer Active 06/04/2018 [facility] Benadryl 0 Refill(s) Active 06/01/2018 [facility] Carisoprodol 350 MG Oral Tablet [Soma] 350 mg=1 tab, PO, Q8H, # 21 tab, 0 Refill(s) No Longer Active 06/01/2018 [facility] Acetaminophen 325 MG / Oxycodone Hydrochloride 10 MG Oral Tablet [Percocet 10/325] 1 tab, PO, Q8H, PRN Pain, # 90 tab, 0 Refill(s) No Longer Active 06/01/2018 [facility] zolpidem 10 mg oral tablet 10 mg=1 tab, PO, Bedtime, X 30 day, # 30 tab, 3 Refill(s) No Longer Active 05/18/2018 [facility] {6 (Azithromycin 250 MG Oral Tablet [Zithromax]) } Pack [Z-PAKS] See Instructions, Take 2 tablets by mouth the first day then 1 tablet by mouth days 2-5., X 5 day, # 6 tab, 0 Refill(s), Pharmacy: [place] [address] No Longer Active 10/31/2017 [facility] hydrochlorothiazide 12.5 mg oral tablet See Instructions, TAKE 1 TABLET BY MOUTH DAILY, # 90 tab, 2 Refill(s), Pharmacy: [facility] Active 10/31/2017 [facility] metFORMIN 500 mg oral tablet, extended release 500 mg=1 tab, PO, BID-Meals, X 90 day, # 180 tab, 3 Refill(s), Pharmacy: [facility] No Longer Active 10/31/2017 [facility] mirtazapine 30 mg oral tablet See Instructions, TAKE 2 TABLETS BY MOUTH AT BEDTIME, # 180 tab, 2 Refill(s), Pharmacy: [facility] Active 10/31/2017 [facility] topiramate 50 mg oral tablet 50 mg=1 tab, PO, BID, # 180 tab, 1 Refill(s), Pharmacy: [facility] Active 10/31/2017 [facility] Zolpidem tartrate 10 MG Oral Tablet [Ambien] 10 mg=1 tab, PO, Bedtime, PRN for sleep, X 90 day, # 90 tab, 1 Refill(s) Active 10/31/2017 [facility] Zolpidem tartrate 10 MG Oral Tablet [Ambien] 10 mg=1 tab, PO, Bedtime, PRN for sleep, X 30 day, # 30 tab, 0 Refill(s) Inactive 10/31/2017 [facility] Zolpidem tartrate 10 MG Oral Tablet [Ambien] 10 mg=1 tab, PO, Bedtime, PRN for sleep, 0 Refill(s) Inactive 10/31/2017 [facility] Allergies, Adverse Reactions, Alerts Substance Category Reaction Severity Reaction type Status Date Reported Comments Source morphine<sup>1</sup> Assertion Drug allergy Active 05/01/2007 1Data migrated from [facility] on 01/20/15. Originally documented as MORPHINE. Dermatological problems, e.g., rash, hives ; SOB AZUL Hernandez morphine Assertion Drug allergy Active AZUL Horn Immunizations Immunization Date Given Site Status Last Updated Comments Source Hx hepatitis B vaccine<sup>1</sup> 04/14/2010 completed GE Result Comment: engerix. Migrated from OBS ; Data migrated from [employer] on 10/26/2015. [facility] Hx hepatitis B vaccine<sup>2</sup> 04/14/2010 completed GE Result Comment: engerix. Migrated from OBS ; Data migrated from [employer] on 10/26/2015. AZUL Horn,[facility] Hx hepatitis B vaccine<sup>2</sup> 08/14/2009 Left Deltoid completed GE Result Comment: recombivaxhb. Migrated from OBS ; Data migrated from [employer] on 10/26/2015. [facility], AZUL Horn[facility] [place] Hx hepatitis B vaccine<sup>3</sup> 08/14/2009 Left Deltoid completed GE Result Comment: recombivaxhb. Migrated from OBS ; Data migrated from [employer] on 10/26/2015. AZUL Horn, [place] diphtheria/pertussis, acel/tetanus adult<sup>3</sup> 08/13/2009 completed GE Result Comment: tdap. Migrated from OBS ; Data migrated from [employer] on 10/26/2015. [facility], AZUL Horn,[facility] [place] diphtheria/pertussis, acel/tetanus adult<sup>1</sup> 08/13/2009 completed GE Result Comment: tdap. Migrated from OBS ; Data migrated from [employer] on 10/26/2015. AZUL Horn,[facility] tetanus-diphtheria toxoids<sup>4</sup> 08/13/2009 Left Deltoid completed GE Result Comment: tdap. Migrated from OBS VIS: 08-12-08 given August 13, 2009. ; Data migrated from [employer] on 10/26/2015. [facility], AZUL Horn,[facility] [place] pneumococcal 23-valent vaccine 06/15/2006 Right upper arm completed [facility], AZUL Hartwood pneumococcal 23-valent vaccine 06/15/2006 Right upper arm completed RENETTA Reinoso SUSSYD David pneumococcal 23-valent vaccine 06/15/2006 Right upper arm completed [facility] Results Order Name Results Value Reference Range Date Interpretation Comments Source Breast Mammo Diag UNI incl CAD MA Breast Mammo Diag UNI incl CAD MA UNILATERAL RIGHT DIGITAL DIAGNOSTIC MAMMOGRAM WITH CAD: 04/20/2018 CLINICAL: /R92.8 Abnormal Mammogram. Current study was evaluated with a Computer Aided Detection (CAD) system. COMPARISON:Comparison is made to exams dated: 04/09/2018 mammogram - [facility], 2017 mammogram - [facility], 03/30/2015 mammogram - [facility], 02/14/2014 mammogram, and 03/05/2013 mammogram - [facility]. TECHNIQUE: Mammographic views were obtained using digital [...] is recommended.(04/21/2019) This exam was interpreted at [id number] for RENETTA Hernandez, 16. Professional services are provided by the [facility] M.DLoraine Cam Division of Diagnostic Imaging. Mateo Robert M.D., cm/yolie:04/20/2018 08:13:53 Dorr Operator(s): Luh Torres [facility] letter sent: BI-RADS 1/2 Mammogram BI-RADS: 2 Benign 04/20/2018 - - Read by: Edward De La Rosa MD Dictated Date/time: 04/20/18 08:13 Electronically Signed by: Edward De La Rosa MD 04/20/18 08:13 FINAL REPORT AZUL Hernandez Breast Mammo Scrn HANK incl CAD MA Breast Mammo Scrn HANK incl CAD MA BILATERAL DIGITAL SCREENING MAMMOGRAM WITH CAD: 04/09/2018 CLINICAL: /Routine. Current study was evaluated with a Computer Aided Detection (CAD) system. COMPARISON:Comparison is made to exams dated: 2017 mammogram - [facility], 03/30/2015 mammogram - [facility], and 02/14/2014 mammogram - [facility]. TECHNIQUE: Mammographic views were obtained using digital [...] are recommended. This exam was interpreted at [id number] at [facility]. Professional services are provided by the [facility] Division of Diagnostic Imaging. Aleja Carballo M.D. /penrad:04/09/2018 15:44:49 Dorr Operator(s): Daniella Roman [facility] letter sent: BI-RADS 0 Mammogram BI-RADS: 0 Indeterminate 04/09/2018 - - Read by: Aleja Carballo MD Dictated Date/time: 04/09/18 15:44 Electronically Signed by: Aleja Carballo MD 04/09/18 15:44 FINAL REPORT [facility] Ext Lower non vascular US Ext Lower [...] Bagley MD 04/20/17 12:10 FINAL REPORT AZUL [place] Hip 2/3 views uni DX Hip 2/3 [...] AP views of the right hip. SL: [id number] 04/08/2017 - - Read by: Jaymie Ansari MD Dictated Date/time: 04/08/17 10:16 Electronically Signed by: Jaymie Ansari MD 04/08/17 10:17 FINAL REPORT [facility] Breast Mammo Scrn HANK incl CAD MA Breast Mammo Scrn HANK incl CAD MA - BREAST MAMMO SCRN HANK INCL CAD MA BILATERAL DIGITAL SCREENING MAMMOGRAM WITH CAD: 2017 CLINICAL: Routine. Current study was evaluated with a Computer Aided Detection (CAD) system. Comparison is made to exams dated: 03/30/2015 mammogram - [facility], 02/14/2014 mammogram, 03/05/2013 mammogram, 01/17/2012 mammogram, 02/17/2011 mammogram and 01/27/2011 mammogram - [facility]. There are scattered fibroglandular densities in both [...] 10:29:24 copy to: Johann Jones M.D., ph: Dorr Operator: Abiola Hillman, [facility] This exam was dictated and interpreted by [id number] for [facility]. letter sent: Normal exam Mammogram BI-RADS: 2 Benign 2017 - - Read by: Elizabeth Mcintyre MD Dictated Date/time: 01/13/17 10:29 Electronically Signed by: Elizabeth Mcintyre MD 01/13/17 10:29 FINAL REPORT [facility] Bone Density Scan Bone Density Scan Patient Name: MK MERRITT : 1955; Age: 62 years y/o Female MR: [id number] Study: Bone Density Scan 2017 8:32 AM [...] standard deviations below peak bone mass. SL: [id number] 2017 - - Read by: Mayank Toro MD Dictated Date/time: 01/13/17 09:42 Electronically Signed by: Mayank Toro MD 01/13/17 09:43 FINAL REPORT [facility] Digital Mammo Screen Hank MA w [...] mammogram, 01/27/2011 mammogram and 01/24/2011 mammogram - [facility]. There are scattered fibroglandular densities in both [...] 1 year screening mammogram is recommended. Elizabeth walterst/penrad:03/30/2015 15:00:33 copy to: Johann Jones M.D., ph: Dorr Operator: Luh Trores [facility] This exam was dictated and interpreted by [id number] for [facility]. letter sent: Normal exam Mammogram BI-RADS: 2 Benign 03/30/2015 - - Read by: Elizabeth Mcintyre MD Dictated Date/time: 03/30/15 15:00 Electronically Signed by: Elizabeth Mcintyre MD 03/30/15 15:00 [facility] Hand AP lateral oblique Hand AP lateral [...] Cooper MD 09/24/14 11:33 FINAL REPORT AZUL [place] Digital Mammo Screening Hank MA Digital Mammo Screening Hank MA - DIGITAL MAMMO SCREENING HANK MA BILATERAL DIGITAL SCREENING MAMMOGRAM WITH CAD: 02/14/2014 CLINICAL: Routine. Current study was evaluated with a Computer Aided Detection (CAD) system. Comparison is made to exams dated: 03/05/2013 mammogram, 01/17/2012 mammogram, 02/17/2011 mammogram, 01/27/2011 mammogram, 01/24/2011 mammogram - [facility] and 12/10/2003. Current study contains 4 films. [...] one year is recommended. Marcus Cooper M.D. btp/yolie:02/19/2014 14:16:36 copy to: Johann Jones M.D., ph: Dorr Operator: Lori Olivera, [facility] This exam was dictated and interpreted by [id number] for [facility]. letter sent: Bilateral Benign Mammogram BI-RADS: 2 Benign 02/14/2014 - - Read by: Marcus Cooper MD Dictated Date/time: 02/19/14 14:16 Electronically Signed by: Marcus Cooper MD 02/19/14 14:16 FINAL REPORT [facility] Pelvis w Pelvis Transvaginal US Pelvis [...] Mayank Peter MD 02/14/14 16:00 FINAL REPORT [facility] Bowel colon Barium enema Bowel colon Barium enema DOUBLE CONTRAST BARIUM ENEMA. HISTORY: 58-year-old female who underwent a screening colonoscopy which was incomplete. The patient was referred for a barium enema examination 2 complete evaluation of the colon. COMMENT: A double contrast barium and was performed in the usual fashion the fluoroscopy time was 4.5 minutes. FINDINGS: A hotel service manager radiograph was initially performed. Of the bowel [...] Armando Duran MD 12/04/13 13:04 FINAL REPORT [facility] Vital Signs Vital Sign Value Date [...] Provider ADM Date DC Date Status Source [facility] Outpatient [id number] Manuela Donato-Dominguez 02/14/2014 02/15/2014 [facility] [place] [facility] [id number] Demetra Pettit 09/24/2014 09/25/2014 [facility] Out[facility] [place] [facility] [id number] Manuela Donato-Dominguez 03/30/2015 03/31/2015 [facility] [place] Outpatient [id number] DEMETRA PETTIT 02/16/2016 Active [facility] Outpatient [id number] DEMETRA PETTIT 07/21/2016 Active [facility] Outpatient [id number] Manuela Donato-Dominguez 2017 01/14/2017 [facility] Outpatient [id number] DEMETRA PETTIT 03/31/2017 Active [facility] Outpatient [id number] JUDY JACQUES 04/08/2017 Active [facility] Outpatient [id number] DEMETRA PETTIT 04/13/2017 Active [facility] Outpatient Imaging [place] [facility] [id number] Demetra Pettit 04/20/2017 04/21/2017 [facility] [place] Outpatient [id number] DEMETRA PETTIT 06/08/2017 Active [facility] Outpatient [id number] DEMETRA PETTIT 10/31/[address] [facility] [place] Outpatient [id number] Demetra Pettit 10/31/2017 11/01/2017 [facility] [place] Phone Message [id number] 01/15/2018 01/17/2018 [facility] [place] Phone Message [id number] 01/24/2018 01/26/2018 [facility] [place] Phone Message [id number] 01/24/2018 01/26/2018 [facility] [place] Phone Message [id number] 01/31/2018 02/02/2018 Medical Group [facility] Outpatient Imaging [place] [facility] [id number] Manuela Donato-Dominguez 04/09/2018 04/10/2018 [facility] [place] [facility] Outpatient Imaging [place] [facility] [id number] Manuela Donato-Dominguez 04/20/2018 04/21/2018 [facility] [place] [facility] [place] Phone Message [id number] 05/18/2018 05/20/2018 Medical Group Outpatient [id number] DEMETRA PETTIT 06/01/[address] [facility] [place] Outpatient [id number] Demetra Pettit 06/01/2018 06/02/2018 [facility] [place] Outside Medical Records [id number] 06/06/2018 06/08/2018 Medical Group Outpatient [id number] DEMETRA PETTIT 06/21/[address] [facility] [place] Outpatient [id number] Demetra Pettit 06/21/2018 06/22/2018 [facility] [place] Phone Message [id number] 06/29/2018 07/01/2018 [facility] [place] Phone Message [id number] 07/03/2018 07/05/2018 [facility] [place] Outside Medical Records [id number] 07/04/2018 07/06/2018 [facility] [place] Phone Message [id number] 07/09/2018 07/11/2018 [facility] [place] Phone Message [id number] 07/19/2018 07/21/2018 [facility] [place] Phone Message [id number] 07/19/2018 07/21/2018 [facility] [place] Phone Message [id number] 07/19/2018 07/21/2018 [facility] [place] Phone Message [id number] 10/29/2018 10/31/2018 [facility] [place] Between Visit [id number] 11/14/2018 11/15/2018 [facility] Outpatient [id number] Demetra Pettit 12/13/[address] [facility] [place] Outpatient [id number] Demetra Pettit 12/13/2018 12/14/2018 [facility] [place] Phone Message [id number] 12/21/2018 12/23/2018 [facility] [place] Between Visit [id number] 02/05/2019 02/06/2019 [facility] Procedures Procedure Code Date Perfomer Comments Source Breast biopsy and related procedures [id number] [facility] [place] Cholecystectomy [id number] [facility] [place] Hysterectomy [id number] [facility] [place] Laparoscopic sleeve gastrectomy [id number] [facility] [place] Breast biopsy and related procedures [id number] [facility] Cholecystectomy [id number] [facility] Hysterectomy [id number] [facility] Laparoscopic sleeve gastrectomy [id number] [facility] Tonsillectomy [id number] [facility] Breast biopsy and related procedures [id number] [facility] [place] Cholecystectomy [id number] [facility] [place] Hysterectomy [id number] [facility] [place] Laparoscopic sleeve gastrectomy [id number] [facility] [place] Tonsillectomy [id number] [facility] [place] Breast biopsy and related procedures [id number] [place] Chole[facility] [id number] [place] Hysterectomy [id number] [place] Laparoscopic sleeve gastrectomy [id number] [place] Tonsillectomy [id number] [place] Tonsillectomy [id number] [facility] [place]
--- OUTSIDE RECORDS SUMMARY | 2019-02-14 05:41 | XMS REPORT | Summary of Care ---
Author Author [facility] [place] Organization [facility] [place] Address Unknown Phone Unavailable Encounter HQ Zackary_phil(FIN) [id number] Date(s): 07/19/18 - 07/20/18 [facility] [place] [address] [place] [address]- [phone] Vital Signs No data available for this section Problem List Condition Effective Dates Status Health Status Informant Acute maxillary 07/09/12 Resolved sinusitis1 Acute pharyngitis2 08/26/10 Resolved Acute sinusitis3 09/15/09 Resolved 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 Depressive disorder5 Active Dyslipidemia6 07/17/07 Active Exposure to sexually 08/13/09 Resolved transmissible disorder7 Fatigue8 11/07/13 Active Gastroenteritis9 01/27/09 Resolved Gastroesophageal Active reflux iruxloj66 Hematoma(Confirmed) Active Jaw Active hematoma(Confirmed) Hypercholesterolemia 01/05/12 Active 11 Jdacmrfgmfugy38 05/28/14 Active Hypertensive 03/30/15 Active lpoopuu85 Hypertriglyceridemia 03/30/15 Active 14 Hypothyroid(Confirme Active d) Ovzhovgggrnjoq54 05/13/08 Active Impaired fasting 08/13/09 Active vljyglssh84 Flycgddrm18 12/09/10 Resolved Injury of hand18 09/22/14 Active Eeiscgog97 05/01/07 Active Long-term drug 05/13/08 Active jgaqtyk37 Malaise and 05/13/08 Active iixtxsw85 Menopausal 01/27/09 Active rlsfganb68 Murmur(Confirmed) Active Obesity(Confirmed) Active Aqchefq27 12/07/07 Resolved Staphylococcal 05/13/08 Resolved infectious ibpiwbv31 Streptococcal sore 12/07/07 Resolved akzoiw20 Contusion of Active hip(Confirmed) Upper respiratory 07/17/07 Resolved einutgdup63 Urinary tract 12/29/10 Resolved infectious sudkqvc38 Vwmobszp52 12/09/10 Resolved 1Data migrated from [employer] [...] Migrated from OBS ; Data migrated from [employer] on 10/26/2015. 2Result Comment: recombivaxhb. Migrated from OBS ; Data migrated from [employer] on 10/26/2015. 3Result Comment: tdap. Migrated from OBS ; Data migrated from [employer] on 10/26/2015. 4Result Comment: tdap. Migrated from OBS VIS: 08-12-08 given August 13, 2009. ; Data migrated from [employer] on 10/26/2015. Procedures Procedure Date Related Diagnosis [...]
--- OUTSIDE RECORDS SUMMARY | 2019-02-14 05:42 | XMS REPORT | Summary of Care ---
Author Author [facility] [place] Organization [facility] [place] Address Unknown Phone Unavailable Encounter HQ Zackary_phil(FIN) [id number] Date(s): 02/05/19 - 02/06/19 [facility] [place] [address] [place] [address]- [phone] Vital Signs No data available for this section Problem List Condition Effective Dates Status Health Status Informant Acute maxillary 07/09/12 Resolved sinusitis1 Acute pharyngitis2 08/26/10 Resolved Acute sinusitis3 09/15/09 Resolved 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 Depressive disorder5 Active Dyslipidemia6 07/17/07 Active Exposure to sexually 08/13/09 Resolved transmissible disorder7 Fatigue8 11/07/13 Active Gastroenteritis9 01/27/09 Resolved Gastroesophageal Active reflux vfmwinu74 Hematoma(Confirmed) Active Jaw Active hematoma(Confirmed) Hypercholesterolemia 01/05/12 Active 11 Qytfydiikuslv40 05/28/14 Active Hypertensive 03/30/15 Active dhokylx24 Hypertriglyceridemia 03/30/15 Active 14 Hypothyroid(Confirme Active d) Leixauslqfjkuj25 05/13/08 Active Impaired fasting 08/13/09 Active fcgenpfkh80 Indrpmziq99 12/09/10 Resolved Injury of hand18 09/22/14 Active Gpwmwxke61 05/01/07 Active Long-term drug 05/13/08 Active sweqtzy82 Malaise and 05/13/08 Active ypyqwso16 Menopausal 01/27/09 Active slibpftu62 Murmur(Confirmed) Active Obesity(Confirmed) Active Czpaopd33 12/07/07 Resolved Staphylococcal 05/13/08 Resolved infectious peigwra08 Streptococcal sore 12/07/07 Resolved Contusion of Active hip(Confirmed) Upper respiratory 07/17/07 Resolved amybvauwl93 Urinary tract 12/29/10 Resolved infectious lbetvdm56 Ktuabpna05 12/09/10 Resolved 1Data migrated from [employer] [...] e.g., rash, hives ; SOB Medications Viibryd 20 mg oral tablet 20 mg=1 tab, PO, Daily, # 30 tab, 3 Refill(s), [facility]acy: [facility] Start Date: 02/05/19 Stop Date: 06/05/19 Status: Ordered Results No data available for this section Immunizations Given and Recorded Vaccine Date Status Refusal Reason Hx hepatitis B vaccine1 04/14/10 Given Hx hepatitis B vaccine2 08/14/09 Given diphtheria/pertussis, acel/tetanus adult3 08/13/09 Given tetanus-diphtheria toxoids4 08/13/09 Given pneumococcal 23-valent vaccine 06/15/06 Given 1Result Comment: engerix. Migrated from OBS ; Data migrated from [employer] on 10/26/2015. 2Result Comment: recombivaxhb. Migrated from OBS ; Data migrated from [employer] on 10/26/2015. 3Result Comment: tdap. Migrated from OBS ; Data migrated from [employer] on 10/26/2015. 4Result Comment: tdap. Migrated from OBS VIS: 08-12-08 given August 13, 2009. ; Data migrated from [employer] [facility] on 10/26/2015. Procedures Procedure Date Related Diagnosis [...]
[2019-02-14 07:40] VITALS: BP 118/75
== END | disposition home or self-care (01) ==
LOC: OR 05:37
PROVIDERS: ATTEND Physical Medicine & Rehabilitation Pain Medicine
DX: G90.522 Complex regional pain syndrome I of left lower limb (principal); E03.9 Hypothyroidism, unspecified; K21.9 Gastro-esophageal reflux disease without esophagitis; K58.9 Irritable bowel syndrome, unspecified; K44.9 Diaphragmatic hernia without obstruction or gangrene; E11.9 Type 2 diabetes mellitus without complications; F32.9 Major depressive disorder, single episode, unspecified; F41.9 Anxiety disorder, unspecified; Z88.6 Allergy status to analgesic agent; Z96.652 Presence of left artificial knee joint
CPT/HCPCS: 64520; 77003; J1100; J2001; J2250; J2704; Q9967

== ENCOUNTER → 2019-02-21 | Day surgery (SDC) | payer OTHER ==
[~2019-02-21] MED LIST changes: -DEXAMETHASONE SOD PHOS 10 MG/1 ML VIAL ONE; +LIDOCAINE HCL 2% LOCAL INJ 5 ML SDV VIAL INJ ONE
--- OUTSIDE RECORDS SUMMARY | 2019-02-21 05:35 | XMS REPORT | Clinical Summary ---
Author Author [facility] Address Unknown Phone Unavailable Care Team Providers Care Monologist Name Role Phone Asked, No Pcp PCP [...] DAILY, # 90 tab, 2 Refill(s), Pharmacy: [facility] Active mirtazapine (REMERON) 30 See 0 MG tablet Instructions, 8 TAKE 2 TABLETS BY MOUTH AT BEDTIME, # 180 tab, 2 Refill(s), Pharmacy: [facility] Active topiramate (TOPAMAX) 50 50 mg=1 tab, 0 MG tablet PO, BID, # 8 180 tab, 1 Refill(s), Pharmacy: [facility] Active zolpidem (AMBIEN) 10 [...] encounter 06/01/2018 Office Visit Orthopedic Surgery after 02/20/2018 Social History Date Tobacco Use Types Packs/Day [...] Date Type Specialty Mayank Pearson MD [address] [address] [phone] Edita Cid 02/22/2019 Office Visit Physical Therapy Mayank Pearson MD [address] [address] Edita Cid 02/25/2019 Office Visit Physical Therapy Mayank Pearson MD [address] [address] [phone] Edita Cid 03/04/2019 Office Visit Physical Mayank Pozo MD [address] [address] [phone] Edita Cdi 03/08/2019 Office Visit Physical Mayank Pozo MD [address] [address] Edita Cid 03/11/2019 Office Visit Physical Therapy Mayank Pearson MD [address] [address] Edita Cid 03/15/2019 Office Visit Physical Mayank Pozo MD [address] [address] [phone] Edita Cid 03/18/2019 Office Visit Physical Mayank Pozo MD [address] [address] Edita Cid 03/25/2019 Office Visit Physical Therapy Mayank Pearson MD [address] [address] [phone] Edita Cid 03/29/2019 Office [place] [address] [place] [address] Edita Cid 04/01/2019 Office Visit [place] [address] [place] [address] Edita Cid 04/05/2019 Office Visit [place] [address] [place] [address] Edita Cid 04/08/2019 Office Visit [place] [address] [place] [address] Edita Cid 04/12/2019 Office Visit Physical Therapy Mayank Pearson MD [address] [place] [address] Edita Cid 04/15/2019 Office Visit [place] [address] [place] [address] Edita Cid 04/19/2019 Office Visit Physical Therapy Mayank Pearson MD [address] [address] Edita Cid 04/22/2019 Office Visit Physical Therapy Maaynk Pearson MD [address] [address] [phone] Edita Cid 04/26/2019 Office Visit Physical Therapy Health Maintenance Due Date Last Done Comments BREAST CANCER SCREENING 01/12/2006 COLON CANCER SCREENING 01/12/2006 SHINGLES VACCINES (#1) 01/12/2006 INFLUENZA VACCINE 04/25/2019 Implants Device Identifier Shelf Expiration Date Model / Serial / Lot Implanted Type Area Manufactur er 10/16/2022 [id number] / [id number] / LOT NA Tendon Achls Allograft Leader W/ Human Left: Knee MUSCULOSKE Clcns 19.5-38cm 10-20mm - Tissue LETAL [id number] - [id number] Implants TRANSPLANT Implanted: Qty: 1 on 06/07/2018 by [facility] Mayank Pearson MD 02/22/2023 AR [id number] 45 / / [id number] Suture Blue Eye, Peek Corkscrew - IPM Left: Knee ARTHREX [id number] IMPLANT ORTHOPEDIC Implanted: Qty: 1 on 06/07/2018 by [employer] S Mayank Pearson MD 10/18/2022 [id number] / / [id number] Screw Intrfrnce Plla Cordova 7x20mm Orthopedic Left: Knee ORDONEZ AND Biosure - [id number] Trauma NEPHEW Implanted: Qty: 1 on 06/07/2018 by Implants Mayank Mata MD 09/24/2019 AR [id number] 2 / / [id number] Suture Blue Eye Dbl Loaded Biocomp Orthopedic Left: Knee ARTHREX Swvlk 4.75mm X 22mm - [id number] Trauma INC Implanted: Qty: 1 on 06/07/2018 by Mayank Mays MD 09/24/2022 AR [id number] 09 / / [id number] Screw Tib 9mm Graftbolt - Orthopedic Left: Knee ARTHREX [id number] [employer] Implanted: Qty: 1 on 06/07/2018 by Mayank Mays MD Procedures Comments Procedure Name Priority Date/Time Associated Diagnosis XR KNEE 1 OR 2 VW LEFT Routine 06/12/2018 Rupture of anterior 2:06 PM CDT cruciate ligament of left knee, subsequent encounter THYROID STIMULATING Routine 06/08/2018 HORMONE 7:33 PM CDT T4, FREE Routine 06/08/2018 7:33 PM CDT POC GLUCOSE Routine 06/07/2018 1:05 PM CDT [place] AN ELECTIVE Routine 06/07/2018 ENDOTRACHEAL AIRWAY 10:13 [...] Anesthesio logist: ROBB PALMA Performed by: Anesthesio bee Preprocedu re: patient identified , IV checked, [...] 05/25/2018 EXTERNAL STUDY 2:33 PM CDT after 02/20/2018 Results * XR Knee 1 Or 2 Vw Left (06/12/2018 2:06 PM CDT) Specimen Narrative Performed At [facility] Tunnels in good position Performing Organization Address [facility] Phone Number [facility] [address] [place] [address] * Thyroid stimulating hormone (06/08/2018 7:33 PM CDT) TSH 6.05 (H) 0.27 - 4.20 uIU/mL [facility] DEPARTMENT OF PATHOLOGY AND GENOMIC MEDICINE Specimen Plasma specimen Performing Organization Address [facility] Phone Number [address] [address] PATHOLOGY AND GENOMIC MEDICINE * T4, free (06/08/2018 7:33 PM CDT) T4, free 1.6 0.9 - 1.7 ng/dL [facility] DEPARTMENT OF PATHOLOGY AND GENOMIC MEDICINE Specimen Plasma specimen Performing Organization Address [facility] Phone Number [address] [place] [address] PATHOLOGY AND GENOMIC MEDICINE * POC glucose (06/07/2018 1:05 PM CDT) Only the most recent of 2 results within the time period is included. POC glucose 173 (H) 65 - 99 mg/dL [facility] DEPARTMENT Comment: OF PATHOLOGY [facility] Notified RN AND GENOMIC Meter ID: [id number] MEDICINE Global Chief Creative Officer: Reno Ambrose Specimen Performing Organization Address City/State/Zipcode Phone Number [facility] DEPARTMENT OF [address] [place], [place] [phone] PATHOLOGY AND GENOMIC MEDICINE * MRI Lower Extremity External Study (05/25/2018 2:33 PM CDT) Specimen Narrative Performed At This exam was not acquired at a [facility] facility and has not been [facility] interpreted by a [facility] Provider.The exam was imported into our imaging system for comparisons purposes. Performing Organization Address City/State/Zipcode Phone Number [facility] [address] [place] [address] after 02/20/2018 Insurance Type Payer Benefit Subscriber ID Effective Phone Address Plan / Dates Group O CIGNA CIGNA OPEN xxxxxxxxxxx 2016-P ACCESS/NET resent WORK Advance Directives Patient has advance care planning documents on file. For more information, truong gutierrez contact: Carlyle Huang [address] [place] [phone]
[2019-02-21 07:35] VITALS: BP 120/78
== END | disposition home or self-care (01) ==
LOC: OR 05:33
PROVIDERS: ATTEND Physical Medicine & Rehabilitation Pain Medicine
DX: G90.522 Complex regional pain syndrome I of left lower limb (principal); K21.9 Gastro-esophageal reflux disease without esophagitis; K58.9 Irritable bowel syndrome, unspecified; E11.9 Type 2 diabetes mellitus without complications; E03.9 Hypothyroidism, unspecified; F41.9 Anxiety disorder, unspecified; F32.9 Major depressive disorder, single episode, unspecified; Z88.6 Allergy status to analgesic agent; Z96.652 Presence of left artificial knee joint
CPT/HCPCS: 64520; 77003; J2001 ×2; J2250; J2704; Q9967

== ENCOUNTER → 2019-02-28 | Day surgery (SDC) | payer OTHER ==
[~2019-02-28] MED LIST changes: +ALPRAZOLAM0.5 MG PO; +CALCIUM CARBON500 MG PO; +DEXAMETHASONE SOD PHOS 10 MG/1 ML VIAL ONE; +GABAPENTIN300 MG PO; +KETAMINE HCL INJ 50 MG/ML 10 ML VIAL ONE; -LIDOCAINE HCL 2% LOCAL INJ 5 ML SDV VIAL INJ ONE; +PERCOCET PO; +PREMARIN42.5 GM PO; +REMERON30 M1 PO; +TOPIRAMATE25 MG PO; +VITAMIN E400 UNIT PO
--- OUTSIDE RECORDS SUMMARY | 2019-02-28 05:24 | XMS REPORT | Clinical Summary ---
Author Author [facility] Address Unknown Phone Unavailable Care Team Providers Care User Support Specialist Name Role Phone Asked, No Pcp PCP [...] DAILY, # 90 tab, 2 Refill(s), Pharmacy: [facility] Active mirtazapine (REMERON) 30 See 0 MG tablet Instructions, 8 TAKE 2 TABLETS BY MOUTH AT BEDTIME, # 180 tab, 2 Refill(s), Pharmacy: [facility] Active topiramate (TOPAMAX) 50 50 mg=1 tab, 0 MG tablet PO, BID, # 8 180 tab, 1 Refill(s), Pharmacy: [facility] Active zolpidem (AMBIEN) 10 mg 10 [...] encounter 06/01/2018 Office Visit Orthopedic Surgery after 02/27/2018 Social History Date Tobacco Use Types Packs/Day [...] Date Type Specialty Mayank Pearson MD [address] [address] [phone] Edita Cid 03/04/2019 Office Visit Physical Therapy Mayank Pearson MD [address] [address] Edita Cid 03/08/2019 Office Visit Physical Therapy Mayank Pearson MD [address] [address] Edita Cid 03/11/2019 Office Visit Physical Mayank Pozo MD [address] [address] [phone] Edita Cid 03/15/2019 Office Visit Physical Mayank Pozo MD [address] [address] Edita Cid 03/18/2019 Office Visit Physical Mayank Pozo MD [address] [address] Edita Cid 03/25/2019 Office Visit Physical Mayank Pozo MD [address] [address] Edita Cid 03/29/2019 Office Visit Physical Mayank Pozo MD [address] [address] Edita Cid 04/01/2019 Office Visit Physical Therapy Mayank Pearson MD [address] [address] [phone] Edita Cid 04/05/2019 Office Visit [place] [address] [place] [address] [phone] Edita Cid 04/08/2019 Office Visit [place] [address] [place] [address] [phone] Edita Cid 04/12/2019 Office Visit [place] [address] [place] [address] [phone] Edita Cid 04/15/2019 Office Visit [place] [address] [place] [address] [phone] Edita Cid 04/19/2019 Office Visit [place] [address] [place] [address] [phone] Edita Cid 04/22/2019 Office Visit [place] [address] [place] [address] [phone] Edita Cid 04/26/2019 Office Visit Physical Therapy Health Maintenance Due Date Last Done Comments BREAST CANCER SCREENING 01/12/2006 COLON CANCER SCREENING 01/12/2006 SHINGLES VACCINES (#1) 01/12/2006 INFLUENZA VACCINE 04/25/2019 Implants Device Identifier Shelf Expiration Date Model / Serial / Lot Implanted Type Area Manufactur er 10/16/2022 [id number] / [id number] / LOT NA Tendon Achls Allograft Leader W/ Human Left: Knee MUSCULOSKE Clcns 19.5-38cm 10-20mm - Tissue LETAL [id number] - [id number] Implants TRANSPLANT Implanted: Qty: 1 on 06/07/2018 by [facility] Mayank Pearson MD 02/22/2023 AR 1927PNF 45 / / [id number] Suture [place], Peek Corkscrew - IPM Left: Knee ARTHREX [id number] IMPLANT ORTHOPEDIC Implanted: Qty: 1 on 06/07/2018 by DEVICES S Mayank Pearson MD 10/18/2022 [id number] / / [id number] Screw Intrfrnce Plla Cordova 7x20mm Orthopedic Left: Knee ORDONEZ AND Biosure - [id number] Trauma NEPHEW Implanted: Qty: 1 on 06/07/2018 by Implants ENDOSCOPY Mayank Pearson MD 09/24/2019 AR [id number] 2 / / [id number] Suture [place] Dbl Loaded Biocomp Orthopedic Left: Knee ARTHREX Swvlk 4.75mm X 22mm - [id number] Tra[employer] INC Implanted: Qty: 1 on 06/07/2018 by Implants Mayank Pearson MD 09/24/2022 AR 5100 09 / / [id number] Screw Tib 9mm Graftbolt - Orthopedic Left: Knee ARTHREX [id number] Tra[employer] INC Implanted: Qty: 1 on 06/07/2018 [...] POC GLUCOSE Routine 06/07/2018 1:05 PM CDT IN AN ELECTIVE Routine 06/07/2018 ENDOTRACHEAL AIRWAY 10:13 AM CDT Procedure Note - Robb Boss, TABLE WORKER - 06/07/2018 10:13 AM CDT Airway Date/Time: 06/07/2018 10:00 AM Performed by: ROBB BOSS Authorized by: ROBB PALMA Location: OR Urgency: Elective Difficult Airway: No Anesthesio logist: ROBB PALMA Resident/C RNA/AA: ROBB BOSS Performed by: resident/C YANIV/ELVIE Preoxygena tor with 100% O2: Yes Mask [...] 05/25/2018 EXTERNAL STUDY 2:33 PM CDT after 02/27/2018 Results * XR Knee 1 Or 2 Vw Left (06/12/2018 2:06 PM CDT) Specimen Narrative Performed At [facility] Tunnels in good position Performing Organization Address [facility] Phone Number [facility] [address] [place] [address] * Thyroid stimulating hormone (06/08/2018 7:33 PM CDT) TSH 6.05 (H) 0.27 - 4.20 uIU/mL [facility] DEPARTMENT OF PATHOLOGY AND GENOMIC MEDICINE Specimen Plasma specimen Performing Organization Address [facility] [place] [address] PATHOLOGY AND GENOMIC MEDICINE * T4, free (06/08/2018 7:33 PM CDT) Pathologist [facility] T4, free 1.6 0.9 - 1.7 ng/dL [facility] DEPARTMENT OF PATHOLOGY AND GENOMIC MEDICINE Specimen Plasma specimen Performing Organization Address [facility] [place] [address] PATHOLOGY AND GENOMIC MEDICINE * POC glucose (06/07/2018 1:05 PM CDT) Only the most recent of 2 results within the time period is included. POC glucose 173 (H) 65 - 99 mg/dL [facility] DEPARTMENT Comment: OF PATHOLOGY [facility] Notified RN AND GENOMIC Meter ID: [id number] MEDICINE Health Center Associate: Reno Ambrose Specimen Performing Organization Address [facility] Phone Number [facility] DEPARTMENT OF [address] [place] [address] PATHOLOGY AND GENOMIC MEDICINE * MRI Lower Extremity External Study (05/25/2018 2:33 PM CDT) Specimen Narrative Performed At This exam was not acquired at a [facility] facility and has not been [facility] interpreted by a [facility] Witness Provider.The exam was imported into our imaging system for comparisons purposes. Performing Organization Address City/State/Zipcode Phone Number [facility] [address] [place] [address] after 02/27/2018 Insurance Type Payer Benefit Subscriber ID Effective Phone Address Plan / Dates Group HMO CIGNA CIGNA OPEN xxxxxxxxxxx 2016-P ACCESS/NET resent WORK Advance Directives Patient has advance care planning documents on file. For more information, truong gutierrez contact: Carlyle Huang [address] [place] [address]
[2019-02-28 07:30] VITALS: BP 108/67
== END | disposition home or self-care (01) ==
LOC: OR 05:21
PROVIDERS: ATTEND Physical Medicine & Rehabilitation Pain Medicine
DX: G90.522 Complex regional pain syndrome I of left lower limb (principal); Z88.5 Allergy status to narcotic agent; E11.9 Type 2 diabetes mellitus without complications; R01.1 Cardiac murmur, unspecified; E03.9 Hypothyroidism, unspecified; K21.9 Gastro-esophageal reflux disease without esophagitis; K44.9 Diaphragmatic hernia without obstruction or gangrene; K58.9 Irritable bowel syndrome, unspecified; F41.9 Anxiety disorder, unspecified
CPT/HCPCS: 64520; 77003; J1100; J2001; J2250; J2704; Q9967; J3010

== ENCOUNTER → 2019-03-07 | Day surgery (SDC) | payer OTHER ==
[~2019-03-07] MED LIST changes: -KETAMINE HCL INJ 50 MG/ML 10 ML VIAL ONE
--- OUTSIDE RECORDS SUMMARY | 2019-03-07 05:50 | XMS REPORT | Clinical Summary ---
Author Author Tadeo [facility] Organization [place] [facility] Address Unknown Phone Unavailable Care Team Providers Care Support Merchandiser Name Role Phone Asked, No Pcp PCP [...] DAILY, # 90 tab, 2 Refill(s), Pharmacy: [facility] Active mirtazapine (REMERON) 30 See 0 MG tablet Instructions, 8 TAKE 2 TABLETS BY MOUTH AT BEDTIME, # 180 tab, 2 Refill(s), Pharmacy: [facility] Active topiramate (TOPAMAX) 50 50 mg=1 tab, 0 MG tablet PO, BID, # 8 180 tab, 1 Refill(s), Pharmacy: [facility] Active zolpidem (AMBIEN) 10 [...] encounter 06/01/2018 Office Visit Orthopedic Surgery after 03/06/2018 Social History Date Tobacco Use Types Packs/Day [...] Date Type Specialty Mayank Pearson MD [address] [address] [phone] Edita Cid 03/08/2019 Office Visit Physical Therapy Mayank Pearson MD [address] [address] Edita Cid 03/11/2019 Office Visit Physical Therapy Mayank Pearson MD [address] [address] Edita Cid 03/15/2019 Office Visit Physical Mayank Pozo MD [address] [address] [phone] Edita Cid 03/18/2019 Office Visit Physical Mayank Pozo MD [address] [address] Edita Cid 03/25/2019 Office Visit Physical Mayank Pozo MD [address] [address] Edita Cid 03/29/2019 Office Visit Physical Mayank Pozo MD [address] [address] Edita Cid 04/01/2019 Office Visit Physical Mayank Pozo MD [address] [address] Edita Cid 04/05/2019 Office Visit Physical Therapy Mayank Pearson MD [address] [address] [phone] Edita Cid 04/08/2019 Office Visit Physical Therapy Mayank Pearson MD [address] [address] [phone] Edita Cid 04/12/2019 Office Visit Physical Therapy Mayank Pearson MD [address] [address] [phone] Edita Cid 04/15/2019 Office Visit Physical Therapy Mayank Pearson MD [address] [address] [phone] Edita Cid 04/19/2019 Office Visit Physical Therapy Mayank Pearson MD [address] [address] [phone] Edita Cid 04/22/2019 Office Visit Physical Therapy Mayank Pearson MD [address] [address] [phone] Edita Cid 04/26/2019 Office Visit Physical Therapy Health Maintenance Due Date Last Done Comments BREAST CANCER SCREENING 01/12/2006 COLONOSCOPY SCREENING 01/12/2006 SHINGLES VACCINES (#1) 01/12/2006 INFLUENZA VACCINE 04/25/2019 Implants Device Identifier Shelf Expiration Date Model / Serial / Lot Implanted Type Area Manufactur er 10/16/2022 [id number] / [id number] / LOT NA Tendon Achls Allograft Leader W/ Human Left: Knee MUSCULOSKE Clcns 19.5-38cm 10-20mm - Tissue LETAL [id number] - [id number] Implants TRANSPLANT Implanted: Qty: 1 on 06/07/2018 by [facility] Mayank Pearson MD 02/22/2023 AR [id number] / / [id number] Suture Ballinger, Peek Corkscrew - IPM Left: Knee ARTHREX [id number] IMPLANT ORTHOPEDIC Implanted: Qty: 1 on 06/07/2018 by DEVICES S Mayank Pearson MD 10/18/2022 [id number] / / [id number] Screw Intrfrnce Plla Cordova 7x20mm Orthopedic Left: Knee ORDONEZ AND Biosure - [id number] Trauma NEPHEW Implanted: Qty: 1 on 06/07/2018 by Implants ENDOSCOPY Mayank Pearson MD 09/24/2019 AR [id number] / / [id number] Suture Ballinger Dbl Loaded Biocomp Orthopedic Left: Knee ARTHREX Swvlk 4.75mm X 22mm - [id number] Trauma INC Implanted: Qty: 1 on 06/07/2018 by Implants Mayank Pearson MD 09/24/2022 AR [id number] Screw Tib 9mm Graftbolt - Orthopedic Left: Knee ARTHREX [id number] Trauma INC Implanted: Qty: 1 on 06/07/2018 [...] POC GLUCOSE Routine 06/07/2018 1:05 PM CDT AK AN ELECTIVE Routine 06/07/2018 ENDOTRACHEAL AIRWAY 10:13 AM CDT Procedure Note - Robb Boss, LINK AND LINK KNITTING MACHINE OPERATOR - 06/07/2018 10:13 AM CDT Airway [...] 05/25/2018 EXTERNAL STUDY 2:33 PM CDT after 03/06/2018 Results * XR Knee 1 Or 2 Vw Left (06/12/2018 2:06 PM CDT) Specimen Narrative Performed At [facility] Tunnels in good position Performing Organization Address [facility]/Zipcode Phone Number [facility] [address] [place] [address] * Thyroid stimulating hormone (06/08/2018 7:33 PM CDT) Pathologist [facility] TSH 6.05 (H) 0.27 - 4.20 uIU/mL [facility] DEPARTMENT OF PATHOLOGY AND GENOMIC MEDICINE Specimen Plasma specimen Performing Organization Address [facility] [address] [facility] Phone Number [facility] [place] [address] PATHOLOGY AND GENOMIC MEDICINE * T4, free (06/08/2018 7:33 PM CDT) Pathologist [facility] T4, free 1.6 0.9 - 1.7 ng/dL [facility] DEPARTMENT OF PATHOLOGY AND GENOMIC MEDICINE Specimen Plasma specimen Performing Organization Address [facility] Phone Number [facility] [place] [address] PATHOLOGY AND GENOMIC MEDICINE * POC glucose (06/07/2018 1:05 PM CDT) Only the most recent of 2 results within the time period is included. POC glucose 173 (H) 65 - 99 mg/dL [facility] DEPARTMENT Comment: OF PATHOLOGY [facility] Notified RN AND GENOMIC Meter ID: [id number] MEDICINE Business Center Manager: Reno Ambrose Specimen Performing Organization Address [facility] [address]/Zipcode Phone Number [facility] [place] [address] PATHOLOGY AND GENOMIC MEDICINE * MRI Lower Extremity External Study (05/25/2018 2:33 PM CDT) Specimen Narrative Performed At This exam was not acquired at a [facility] facility and has not been [facility] interpreted by a [facility] Provider.The exam was imported into our imaging system for comparisons purposes. Performing Organization Address City/State/Zipcode Phone Number [facility] [address] [place] [address] after 03/06/2018 Insurance Type Payer Benefit Subscriber ID Effective Phone Address Plan / Dates Group HMO CIGNA CIGNA OPEN xxxxxxxxxxx 2016-P ACCESS/NET resent WORK Advance Directives Patient has advance care planning documents on file. For more information, truong gutierrez contact: Carlyle Huang [address] [place] [address]
[2019-03-07 08:20] VITALS: BP 129/78
== END | disposition home or self-care (01) ==
LOC: OR 05:47
PROVIDERS: ATTEND Physical Medicine & Rehabilitation Pain Medicine
DX: G90.522 Complex regional pain syndrome I of left lower limb (principal); E11.9 Type 2 diabetes mellitus without complications; E03.9 Hypothyroidism, unspecified; F32.9 Major depressive disorder, single episode, unspecified; Z88.6 Allergy status to analgesic agent; Z96.652 Presence of left artificial knee joint
CPT/HCPCS: 64520; 77003; J1100; J2001; J2250; J2704; Q9967

== ENCOUNTER → 2019-03-14 | Day surgery (SDC) | payer OTHER ==
[~2019-03-14] MED LIST changes: +LIDOCAINE HCL 2% LOCAL INJ 5 ML SDV VIAL INJ ONE
[2019-03-14 09:15] VITALS: BP 118/79
== END | disposition home or self-care (01) ==
LOC: MERGE 06:00 → OR 06:20
PROVIDERS: ATTEND Physical Medicine & Rehabilitation Pain Medicine
DX: G90.522 Complex regional pain syndrome I of left lower limb (principal); M54.5 Low back pain; E03.9 Hypothyroidism, unspecified; E11.9 Type 2 diabetes mellitus without complications; K21.9 Gastro-esophageal reflux disease without esophagitis; K44.9 Diaphragmatic hernia without obstruction or gangrene; F32.9 Major depressive disorder, single episode, unspecified; F41.9 Anxiety disorder, unspecified; Z88.6 Allergy status to analgesic agent; Z68.31 Body mass index [BMI] 31.0-31.9, adult; Z96.652 Presence of left artificial knee joint; Z91.81 History of falling
CPT/HCPCS: 64520; 77003; J1100; J2001 ×2; J2250; J2704; Q9967

== ENCOUNTER → 2019-03-19 | Outpatient (CLI) | payer OTHER ==
[~2019-03-19] MED LIST changes: -BUPIVACAINE 0.25% 30ML SDV INJ ONE; -DEXAMETHASONE SOD PHOS 10 MG/1 ML VIAL ONE; -FENTANYL CITRATE/PF 100MCG/2 ML INJ ONE; -IOPAMIDOL 200 MG/ML 20 ML VIAL IT ONE; -LIDOCAINE HCL 1% 30ML-PF VIAL ONE; -LIDOCAINE HCL 2% LOCAL INJ 5 ML SDV VIAL INJ ONE; -MIDAZOLAM HCL 2 MG/2 ML VIAL ONE; -PROPOFOL IV EMULSION 10 MG/ML 20 ML VIAL ONE
--- NOTE | 2019-03-19 18:55 | Diagnostic Imaging Report ---
History: Fell off ladder, low back pain Comparison studies: None Technique: Sagittal, coronal and axial T2 , sagittal T1 and IR, axial spin density oblique. Intravenous contrast: None Findings: Number of lumbar vertebral bodies:5 Alignment: Normal lordosis.No scoliosis. Soft tissues: No T2 hyperintense inflammatory changes. Paraspinal muscles: No signal abnormalities. No atrophy. Lower thoracic cord:Normal in signal and morphology. The tip of the conus is at T12-L1. Cauda equina: No masses. No arachnoiditis. Vertebrae: Normal in height and signal intensity. No compression fractures, infection or neoplasm. Degenerative changes: L1-L2: No abnormalities. L2-L3: No abnormalities. L3-L4: Mild facet hypertrophy, fluid of the right facet joint. Patent canal and foramina. L4-L5: Disc degeneration with loss of T2 signal. Mild diffuse disc bulge, moderate facet hypertrophy and ligamentum flavum thickening results in mild canal stenosis and mild left foraminal narrowing. Fluid at the right facet joint. L5-S1: Patent canal and foramina. Additional findings: None IMPRESSION: No acute lumbar spine abnormality. Moderate facet hypertrophy with synovitis changes at L4-L5, without significant (moderate or severe) canal stenosis or foraminal narrowing. Signed by: DR John Velarde M.D. on 03/19/2019 6:51 PM
== END ==
LOC: MRI 15:05
PROVIDERS: ATTEND Physical Medicine & Rehabilitation Pain Medicine
DX: M54.5 Low back pain (principal); M54.16 Radiculopathy, lumbar region
CPT/HCPCS: 72148

== ENCOUNTER → 2019-03-21 | Day surgery (SDC) | payer OTHER ==
[~2019-03-21] MED LIST changes: +BUPIVACAINE 0.25% 30ML SDV INJ ONE; +DEXAMETHASONE SOD PHOS 10 MG/1 ML VIAL ONE; +FENTANYL CITRATE/PF 100MCG/2 ML INJ ONE; +IOPAMIDOL 200 MG/ML 20 ML VIAL IT ONE; +LIDOCAINE HCL 2% LOCAL INJ 5 ML SDV VIAL INJ ONE; +MIDAZOLAM HCL 2 MG/2 ML VIAL ONE; +PROPOFOL IV EMULSION 10 MG/ML 20 ML VIAL ONE
--- OUTSIDE RECORDS SUMMARY | 2019-03-21 06:09 | XMS REPORT ---
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 Allergies, Adverse Reactions, Alerts This patient has no known allergies or adverse reactions. Medications This patient has no known medications. Results Test Description Test Time Test Comments Text Results Atomic Results Result Comments MRI SPINE LUMBAR WO 2019-03-19 18:47:00 [place] [address] Patient Name: KM MERRITT MR #: [id number] : 1955 Age/Sex: 64/F Req #: [id number] Adm Physician: Ordered by: LAYA CUEVA MD Report #: [id number] Location: MRI Room/Bed: Procedure: [id number] MRI/MRI SPINE LUMBAR WO Exam Date: Exam Time: REPORT STATUS: Signed History: Fell off ladder, low back pain Comparison studies: None Technique: Sagittal, coronal and axial T2 , sagittal T1 and IR, axial spin density oblique. Intravenous contrast: None Findings: Number of lumbar vertebral bodies:5 Alignment: Normal lordosis.No scoliosis. Soft tissues: No T2 hyperintense inflammatory changes. Paraspinal muscles: No signal abnormalities. No atrophy. Lower thoracic cord:Normal in signal and morphology. The tip of the conus is at T12-L1. Cauda equina: No masses. No arachnoiditis. Vertebrae: Normal in height and signal intensity. No compression fractures, infection or neoplasm. Degenerative changes: L1-L2: No abnormalities. L2-L3: No abnormalities. L3-L4: Mild facet hypertrophy, fluid of the right facet joint. Patent canal and foramina. L4-L5: Disc degeneration with loss of T2 signal. Mild diffuse disc bulge, moderate facet hypertrophy and ligamentum flavum thickening results in mild canal stenosis and mild left foraminal narrowing. Fluid at the right facet joint. L5-S1: Patent canal and foramina. Additional findings: None IMPRESSION: No acute lumbar spine abnormality. Moderate facet hypertrophy with synovitis changes at L4-L5, without significant (moderate or severe) canal stenosis or foraminal narrowing. Signed by: DR John Velarde M.D. on 03/19/2019 6:51 PM Dictated By: JOHN DEMARCO MD 50 Transcribed By: BESS on 03/19/191850 COPY TO: LAYA CUEVA MD
[2019-03-21 08:28] VITALS: BP 124/76
== END | disposition home or self-care (01) ==
LOC: OR 06:07
PROVIDERS: ATTEND Physical Medicine & Rehabilitation Pain Medicine
DX: M54.16 Radiculopathy, lumbar region (principal); G90.522 Complex regional pain syndrome I of left lower limb; E11.9 Type 2 diabetes mellitus without complications; E03.9 Hypothyroidism, unspecified; Z88.6 Allergy status to analgesic agent; Z68.31 Body mass index [BMI] 31.0-31.9, adult
CPT/HCPCS: 64483; 64484; J1100; J2001; J2250; J2704; Q9967; 77003; J3010

== ENCOUNTER → 2019-04-04 | Day surgery (SDC) | payer OTHER ==
[~2019-04-04] MED LIST changes: +LIDOCAINE HCL 1% 30ML-PF VIAL ONE
--- OUTSIDE RECORDS SUMMARY | 2019-04-04 05:37 | XMS REPORT | Clinical Summary ---
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 Name Role Phone Asked, No Pcp PCP [...] DAILY, # 90 tab, 2 Refill(s), Pharmacy: [facility] Active mirtazapine (REMERON) 30 See 0 MG tablet Instructions, 8 TAKE 2 TABLETS BY MOUTH AT BEDTIME, # 180 tab, 2 Refill(s), Pharmacy: [facility] Active topiramate (TOPAMAX) 50 50 mg=1 tab, 0 MG tablet PO, BID, # 8 180 tab, 1 Refill(s), Pharmacy: [facility] Active zolpidem (AMBIEN) 10 mg 10 [...] encounter 06/01/2018 Office Visit Orthopedic Surgery after 04/03/2018 Social History Date Tobacco Use Types Packs/Day [...] Date Type Specialty Mayank Pearson MD [address] [address] [phone] Edita Cid 04/05/2019 Office Visit Physical Therapy Mayank Pearson MD [address] [address] [phone] Edita Cid 04/08/2019 Office Visit Physical Therapy Mayank Pearson MD [address] [address] [phone] Edita Cid 04/12/2019 Office Visit Physical Therapy Mayank Pearson MD [address] [address] [phone] Edita Cid 04/15/2019 Office Visit Physical Therapy Mayank Pearson MD [address] [address] [phone] Edita Cid 04/19/2019 Office Visit Physical Therapy Mayank Pearson MD [address] [address] [phone] Edita Cid 04/22/2019 Office Visit Physical Therapy Mayank Pearson MD [address] [phone] Edita Cid 04/26/2019 Office Visit Physical Therapy Health Maintenance Due Date Last Done Comments BREAST CANCER SCREENING 01/12/2006 COLONOSCOPY SCREENING 01/12/2006 SHINGLES VACCINES (#1) 01/12/2006 INFLUENZA VACCINE 04/25/2019 Implants Device Identifier Shelf Expiration Date Model / Serial / Lot Implanted Type Area Manufactur er 10/16/2022 [id number] / [id number] / LOT NA Tendon Achls Allograft Leader W/ Human Left: Knee MUSCULOSKE Clcns 19.5-38cm 10-20mm - Tissue LETAL [id number] - [id number] Implants TRANSPLANT Implanted: Qty: 1 on 06/07/2018 by [facility] Mayank Pearson MD 02/22/2023 AR [id number] 45 / / [id number] Suture [place], Peek Corkscrew - IPM Left: Knee ARTHREX [id number] IMPLANT ORTHOPEDIC Implanted: Qty: 1 on 06/07/2018 by DEVICES S Mayank Pearson MD 10/18/2022 [id number] / / [id number] Screw Intrfrnce Plla Cordova 7x20mm Orthopedic Left: Knee ORDONEZ AND Biosure - [id number] Trauma NEPHEW Implanted: Qty: 1 on 06/07/2018 by Implants Mayank Mata MD 09/24/2019 AR [id number] 2 / / [id number] Suture [place] Dbl Loaded Biocomp Orthopedic Left: Knee ARTHREX Swvlk 4.75mm X 22mm - [id number] Trauma INC Implanted: Qty: 1 on 06/07/2018 by Implants Mayank Pearson MD 09/24/2022 AR [id number] / / [id number] Screw Tib 9mm Graftbolt - Orthopedic Left: Knee ARTHREX [id number] [employer]uma INC Implanted: Qty: 1 on 06/07/2018 [...] POC GLUCOSE Routine 06/07/2018 1:05 PM CDT UT AN ELECTIVE Routine 06/07/2018 ENDOTRACHEAL AIRWAY 10:13 AM CDT Procedure Note - Robb Boss, LACHO - 06/07/2018 10:13 AM CDT Airway Date/Time: [...] 05/25/2018 EXTERNAL STUDY 2:33 PM CDT after 04/03/2018 Results * XR Knee 1 Or 2 Vw Left (06/12/2018 2:06 PM CDT) Specimen Narrative Performed At [facility] Tunnels in good position Performing Organization Address [facility] Phone Number [facility] [address] [place] [address] * Thyroid stimulating hormone (06/08/2018 7:33 PM CDT) TSH 6.05 (H) 0.27 - 4.20 uIU/mL [facility] DEPARTMENT OF PATHOLOGY AND GENOMIC MEDICINE Specimen Plasma specimen Performing Organization Address [facility] Phone Number [facility] [place] [address] PATHOLOGY AND GENOMIC MEDICINE * T4, free (06/08/2018 7:33 PM CDT) T4, free 1.6 0.9 - 1.7 ng/dL [facility] DEPARTMENT OF PATHOLOGY AND GENOMIC MEDICINE Specimen Plasma specimen Performing Organization Address [facility] [place] [address] PATHOLOGY AND GENOMIC MEDICINE * POC glucose (06/07/2018 1:05 PM CDT) Only the most recent of 2 results within the time period is included. POC glucose 173 (H) 65 - 99 mg/dL [facility] DEPARTMENT Comment: OF PATHOLOGY [facility] Notified RN AND GENOMIC Meter ID: [id number] MEDICINE Supervisor Of Operations: Reno Ambrose Specimen Performing Organization Address City/State/Zipcode Phone Number [facility] DEPARTMENT OF [address] [place] [address] PATHOLOGY AND GENOMIC MEDICINE * MRI Lower Extremity External Study (05/25/2018 2:33 PM CDT) Specimen Narrative Performed At This exam was not acquired at a [facility] facility and has not been [facility] interpreted by a [facility] Provider.The exam was imported into our imaging system for comparisons purposes. Performing Organization Address City/State/Zipcode Phone Number [facility] [address] [place] [phone] after 04/03/2018 Insurance Type Payer Benefit Subscriber ID Effective Phone Address Plan / Dates Group O CIGNA CIGNA OPEN xxxxxxxxxxx 2016-P ACCESS/NET resent WORK Advance Directives Patient has advance care planning documents on file. For more information, truong gutierrez contact: Carlyle Huang [address] [place] [phone]
--- OUTSIDE RECORDS SUMMARY | 2019-04-04 05:39 | XMS REPORT | Continuity of Care Document ---
Author Author [employer] Organization [employer] Address Unknown Phone Unavailable Care Team Providers Care Event Staff Name Role Phone [employer] Information Net [employer] Unavailable Unavailable Problems Problem Status Onset Date Classification Date Reported Comments Source Other abnormal and inconclusive findings on diagnostic imaging of breast 04/27/2018 11/07/2018 RENETTA Hernandez Encounter for screening mammogram for malignant neoplasm of breast 04/14/2018 10/27/2018 AZUL Horn DX: Z12.31=ENCOUNTER FOR SCREENING MAMMO Active 01/09/2017 [facility] Hypertensive utxyyhm02 Active 03/30/2015 Problem 03/29/2019 Data migrated from [employer] on 04/29/15. [facility], AZUL Horn,[facility], [facility] [place] Kyiqdeamsdukpzyrpokn07 Active 03/30/2015 Problem 03/29/2019 Data migrated from [employer] on 04/29/15. [facility], AZUL Horn,[facility], [facility] [place] Injury of hand10 Active 09/22/2014 Problem 04/02/2015 10Data migrated from [employer] on 02/21/15. [facility] [place] Injury of hand18 Active 09/22/2014 Problem 03/29/2019 Data migrated from [employer] on 02/21/15. [facility], AZUL Horn,[facility], [facility] [place] Hyperglycemia7 Active 05/28/2014 Problem 04/02/2015 7Data migrated from [employer] on 02/21/15. [facility] [place] Jkamrcptohxdn28 Active 05/28/2014 Problem 03/29/2019 Data migrated from [employer] on 02/21/15. [facility], AZUL Horn,[facility], [facility] [place] ROUTINE Active 02/11/2014 [facility] V76.10 PELVIC PAIN Active 02/11/2014 [place] UNK Active 11/26/2013 [facility] Fatigue4 Active 11/07/2013 Problem 04/02/2015 4Data migrated from [employer] on 02/21/15. [facility] [place] Fatigue8 Active 11/07/2013 Problem 03/29/2019 Data migrated from [employer] on 02/21/15. [facility], [facility] [place], [place], [facility] [place] Acute maxillary sinusitis1 Resolved 07/09/2012 Problem 03/29/2019 Data migrated from [employer] on 04/11/15. [facility], [facility] [place], [place], [facility] [place] Hypercholesterolemia6 Active 01/05/2012 Problem 04/02/2015 6Data migrated from [employer] on 02/21/15. [facility] [place] Wgnqyaqjlknisqqiaocm66 Active 01/05/2012 Problem 03/29/2019 Data migrated from [employer] on 02/21/15. [facility], [facility] [place], [place], [facility] [place] Benign tumor of breast1 Active 02/09/2011 Problem 04/02/2015 1Data migrated from [employer] on 02/21/15. [facility] [place] Benign tumor of breast4 Active 02/09/2011 Problem 03/29/2019 Data migrated from [employer] on 02/21/15. [facility], [facility] [place], [place], [facility] [place] Urinary tract infectious euqcspf52 Resolved 12/29/2010 Problem 03/29/2019 Data migrated from [employer] on 04/11/15. [facility], [facility] [place], [place], [facility] [place] Thdbogtce39 Resolved 12/09/2010 Problem 03/29/2019 Data migrated from [employer] on 04/11/15. [facility], [facility] [place], [place], [facility] [place] Vecunmgr39 Resolved 12/09/2010 Problem 03/29/2019 Data migrated from [employer] on 04/11/15. [facility], [facility] [place], [place], [facility] [place] Acute pharyngitis2 Resolved 08/26/2010 Problem 03/29/2019 Data migrated from [employer] on 04/11/15. [facility], [facility] [place], [place], [facility] [place] Acute sinusitis3 Resolved 09/15/2009 Problem 03/29/2019 Data migrated from [employer] on 04/11/15. [facility], [facility] [place], [place], [facility] [place] Impaired fasting glycaemia9 Active 08/13/2009 Problem 04/02/2015 9Data migrated from [employer] on 02/21/15. [facility] [place] Exposure to sexually transmissible disorder7 Resolved 08/13/2009 Problem 03/29/2019 Data migrated from [employer] on 04/11/15. [facility], [facility] [place], [place], [facility] [place] Impaired fasting Active 08/13/2009 Problem 03/29/2019 Data migrated from [employer] on 02/21/15. [facility], [facility] [place], [place], [facility] [place] Menopausal dyyyaetu56 Active 01/27/2009 Problem 04/02/2015 14Data migrated from [employer] on 02/21/15. [facility] [place] Gastroenteritis9 Resolved 01/27/2009 Problem 03/29/2019 Data migrated from [employer] on 04/11/15. [facility], [facility] [place], [place], [facility] [place] Menopausal zeohojgh37 Active 01/27/2009 Problem 03/29/2019 Data migrated from [employer] on 02/21/15. [facility], [facility] [place], [place], [facility] [place] Hypothyroidism8 Active 05/13/2008 Problem 04/02/2015 8Data migrated from [employer] on 02/21/15. [facility] [place] Long-term drug vindzts33 Active 05/13/2008 Problem 04/02/2015 12Data migrated from [employer] on 02/21/15. [facility] [place] Malaise and Active 05/13/2008 Problem 04/02/2015 13Data migrated from [employer] on 02/21/15. [facility] [place] Nsvhxcxlektfni68 Active 05/13/2008 Problem 03/29/2019 Data migrated from [employer] on 02/21/15. [facility], [facility] [place], [place], [facility] [place] Long-term drug yaqxjrh58 Active 05/13/2008 Problem 03/29/2019 Data migrated from [employer] on 02/21/15. [facility], [facility] [place], [place], [facility] [place] Malaise and pogcijw01 Active 05/13/2008 Problem 03/29/2019 Data migrated from [employer] on 02/21/15. [facility], [facility] [place], [place], [facility] [place] Staphylococcal infectious iycanfp79 Resolved 05/13/2008 Problem 03/29/2019 Data migrated from [employer] on 04/10/15. [facility], [facility] [place], [place], [facility] [place] Bsnqqls56 Resolved 12/07/2007 Problem 03/29/2019 Data migrated from [employer] on 04/11/15. [facility], [facility] [place], [place], [facility] [place] Streptococcal sore itwobe13 Resolved 12/07/2007 Problem 03/29/2019 Data migrated from [employer] on 04/11/15. [facility], [facility] [place], [place], [facility] [place] Dyslipidemia3 Active 07/17/2007 Problem 04/02/2015 3Data migrated from [employer] on 02/21/15. [facility] [place] Dyslipidemia6 Active 07/17/2007 Problem 03/29/2019 Data migrated from [employer] on 02/21/15. [facility], [facility] [place], [place], [facility] [place] Upper respiratory dughnfrbl25 Resolved 07/17/2007 Problem 03/29/2019 Data migrated from [employer] on 04/11/15. [facility], [facility] [place], [place], [facility] [place] Dvtkeidp95 Active 05/01/2007 Problem 04/02/2015 11Data migrated from [employer] on 02/21/15. [facility] [place] Ptpyavii43 Active 05/01/2007 Problem 03/29/2019 Data migrated from [employer] on 02/21/15. [facility], [facility] [place], [place], [facility] [place] Depressive disorder2 Active Problem 04/02/2015 2Data migrated from [employer] on 02/21/15. [facility] [place] Gastroesophageal reflux disease5 Active Problem 04/02/2015 5Data migrated from [employer] on 02/21/15. [facility] [place] Depressive disorder5 Active Problem 03/29/2019 Data migrated from [employer] on 02/21/15. [facility], [facility] [place], [place], [facility] [place] Gastroesophageal reflux enatpoj49 Active Problem 03/29/2019 Data migrated from [facility] on 02/21/15. [facility], [facility] [place], [place], [facility] [place] Hematoma Active Problem 03/29/2019 [facility], [facility] [place], [facility] [place] Jaw hematoma Active Problem 03/29/2019 [facility], [facility] [place], [facility] [place] Hypothyroid Active Problem 03/29/2019 [facility], [facility] [place], [place], [facility] [place] Murmur Active Problem 03/29/2019 [facility], [facility] [place], [place], [facility] [place] Obesity Active Problem 03/29/2019 [facility], [facility] [place], [place], [facility] [place] Contusion of hip Active Problem 03/29/2019 [facility], [facility] [place], [facility] [place] Mammographic calcification found on diagnostic imaging of breast 11/07/2018 [facility] [place] LT HAND Active [facility] Medications Medication Details Route Status Patient Instructions Ordering Provider Order Date Source Alprazolam 0.5 MG Oral Tablet [Xanax] 0.5 mg=1 tab, PO, TID, PRN Anxiety, X 30 day, # 90 tab, 1 Refill(s) Active 03/18/2019 [facility] Levothyroxine Sodium 25 MCG Tablet =1 tab, PO, Daily, # 90 tab, Refill(s) 3, TAKE IN ADDITION TO THE OTHER MED., Pharmacy: [facility] Active 03/12/2019 [facility] vilazodone hydrochloride 20 MG Oral Tablet [Viibryd] 20 mg=1 tab, PO, Daily, # 30 tab, 3 Refill(s), Pharmacy: [place] [address] Active 02/05/2019 [facility] vilazodone hydrochloride 10 MG Oral Tablet [Viibryd] 10 mg=1 tab, PO, Daily, # 30 tab, 2 Refill(s), Pharmacy: [facility] Active 12/21/2018 [facility] [...] Daily, # 30 tab, 2 Refill(s), Pharmacy: [place] [address] Active 12/13/2018 [facility] mirtazapine 30 mg oral tablet =2 tab, PO, Bedtime, # 180 tab, Refill(s) 3, Pharmacy: [facility] Active 12/03/2018 [facility] Alprazolam 0.5 MG Oral Tablet [Xanax] 0.5 mg=1 tab, PO, TID, X 30 day, # 90 tab, 1 Refill(s) No Longer Active 08/27/2018 [facility] Fluoxetine 20 MG Oral Capsule [Prozac] 20 mg=1 cap, PO, Daily, # 30 cap, 3 Refill(s), Pharmacy: [place] [address] Active 08/27/2018 [facility] Alprazolam 0.5 MG Oral Tablet [...] day, # 30 cap, 1 Refill(s), Pharmacy: [place] [address] No Longer Active 07/05/2018 [facility] Lorazepam 1 MG Oral Tablet [Ativan] 1 mg=1 tab, PO, TID, X 30 day, # 90 tab, 1 Refill(s) No Longer Active 07/05/2018 [facility] 24 HR Bupropion Hydrochloride 150 MG Extended Release Tablet [Wellbutrin] 150 mg=1 tab, PO, Daily, please do not do the prozac, # 30 tab, 1 Refill(s), Pharmacy: [place] [address] No Longer Active 06/21/2018 [facility] Fluoxetine 10 MG Oral Capsule [Prozac] 10 mg=1 cap, PO, Daily, X 30 day, # 30 cap, 1 Refill(s), Pharmacy: [place] [address] No Longer Active 06/21/2018 [facility] Lorazepam 0.5 MG Oral Tablet [Ativan] 0.5 mg=1 tab, PO, TID, X 30 day, # 90 tab, 0 Refill(s) No Longer Active 06/21/2018 [facility] Acetaminophen 325 MG / Oxycodone Hydrochloride 10 MG Oral Tablet [Percocet 10/325] 1 tab, PO, Q8H, PRN Pain, 06/04/2018--excemption--patient going for surgery, X 30 day, # 90 tab, 0 Refill(s) No Longer Active 06/04/2018 [facility] Benadryl 0 Refill(s) Active 06/01/2018 [facility] Carisoprodol 350 MG Oral Tablet [Soma] 350 mg=1 tab, PO, Q8H, # 21 tab, 0 Refill(s) No Longer Active 06/01/2018 [facility] Acetaminophen 325 MG / Oxycodone Hydrochloride 10 MG Oral Tablet [Percocet 10/325] 1 tab, PO, Q8H, PRN Pain, # 90 tab, 0 Refill(s) No Longer Active 06/01/2018 [facility] zolpidem 10 mg oral tablet 10 mg=1 tab, PO, Bedtime, X 30 day, # 30 tab, 3 Refill(s) No Longer Active 05/18/2018 [facility] {6 (Azithromycin 250 MG Oral Tablet [Zithromax]) } Pack [Z-PAKS] See Instructions, Take 2 tablets by mouth the first day then 1 tablet by mouth days 2-5., X 5 day, # 6 tab, 0 Refill(s), Pharmacy: [place] [address] No Longer Active 10/31/2017 [facility] hydrochlorothiazide 12.5 mg oral tablet See Instructions, TAKE 1 TABLET BY MOUTH DAILY, # 90 tab, 2 Refill(s), Pharmacy: [facility] Active 10/31/2017 [facility] metFORMIN 500 mg oral tablet, extended release 500 mg=1 tab, PO, BID-Meals, X 90 day, # 180 tab, 3 Refill(s), Pharmacy: [facility] No Longer Active 10/31/2017 [facility] mirtazapine 30 mg oral tablet See Instructions, TAKE 2 TABLETS BY MOUTH AT BEDTIME, # 180 tab, 2 Refill(s), Pharmacy: [facility] Active 10/31/2017 [facility] topiramate 50 mg oral tablet 50 mg=1 tab, PO, BID, # 180 tab, 1 Refill(s), Pharmacy: [facility] Active 10/31/2017 [facility] Zolpidem tartrate 10 MG Oral Tablet [Ambien] 10 mg=1 tab, PO, Bedtime, PRN for sleep, X 90 day, # 90 tab, 1 Refill(s) Active 10/31/2017 [facility] Zolpidem tartrate 10 MG Oral Tablet [Ambien] 10 mg=1 tab, PO, Bedtime, PRN for sleep, X 30 day, # 30 tab, 0 Refill(s) Inactive 10/31/2017 [facility] Zolpidem tartrate 10 MG Oral Tablet [Ambien] 10 mg=1 tab, PO, Bedtime, PRN for sleep, 0 Refill(s) Inactive 10/31/2017 [facility] Allergies, Adverse Reactions, Alerts Substance Category Reaction Severity Reaction type Status Date Reported Comments Source morphine<sup>1</sup> Assertion Drug allergy Active 05/01/2007 Data migrated from [employer] on 01/20/15. Originally documented as MORPHINE. Dermatological problems, e.g., rash, hives ; [facility] morphine Assertion Drug allergy Active AZUL Horn Immunizations Immunization Date Given Site Status Last Updated Comments Source Hx hepatitis B vaccine<sup>1</sup> 04/14/2010 completed GE Result Comment: engerix. Migrated from OBS ; Data migrated from [employer] on 10/26/2015. [facility], AZUL Horn, AZUL Hernandez Hx hepatitis B vaccine<sup>2</sup> 04/14/2010 completed GE Result Comment: engerix. Migrated from OBS ; Data migrated from [employer] on 10/26/2015. AZUL Horn,[facility] Hx hepatitis B vaccine<sup>2</sup> 08/14/2009 Left Deltoid completed GE Result Comment: recombivaxhb. Migrated from OBS ; Data migrated from [employer] on 10/26/2015. [facility], [facility] Hx hepatitis B vaccine<sup>3</sup> 08/14/2009 Left Deltoid completed GE Result Comment: recombivaxhb. Migrated from OBS ; Data migrated from [employer] on 10/26/2015. AZUL Horn, [place] diphtheria/pertussis, acel/tetanus adult<sup>3</sup> 08/13/2009 completed GE Result Comment: tdap. Migrated from OBS ; Data migrated from [employer] on 10/26/2015. [facility], AZUL Horn, AZUL Hernandez diphtheria/pertussis, acel/tetanus adult<sup>1</sup> 08/13/2009 completed GE Result Comment: tdap. Migrated from OBS ; Data migrated from [employer] on 10/26/2015. AZUL Horn,[facility] tetanus-diphtheria toxoids<sup>4</sup> 08/13/2009 Left Deltoid completed GE Result Comment: tdap. Migrated from OBS VIS: 08-12-08 given August 13, 2009. ; Data migrated from [employer] on 10/26/2015. [facility], AZUL Horn,[facility], AZUL Segovialand pneumococcal 23-valent vaccine 06/15/2006 Right upper arm completed [facility], AZUL Horn,[facility] [place] Results No Data Provided for This Section Pathology Reports No Data Provided for This Section Diagnostic Reports Report Value Date Source Breast Mammo Diag UNI incl CAD MA UNILATERAL RIGHT DIGITAL DIAGNOSTIC MAMMOGRAM WITH CAD: 04/20/2018 CLINICAL: /R92.8 Abnormal Mammogram. Current study was evaluated with a Computer Aided Detection (CAD) system. COMPARISON:Comparison is made to exams dated: 04/09/2018 mammogram - [facility], 2017 mammogram - [facility], 03/30/2015 mammogram - [facility], 02/14/2014 mammogram, and 03/05/2013 mammogram - [facility]. TECHNIQUE: Mammographic views were obtained using digital [...] is recommended.(04/21/2019) This exam was interpreted at [id number] for RENETTA Hernandez, SL 15. Professional services are provided by the [facility]. Mateo Robert M.D., cm/yolie:04/20/2018 08:13:53 Remedial Project Manager(s): Luh Torres [facility] letter sent: BI-RADS 1/2 Mammogram BI-RADS: 2 Benign 04/20/2018 [facility]UL [place] Breast Mammo Scrn HANK incl CAD MA BILATERAL DIGITAL SCREENING MAMMOGRAM WITH CAD: 04/09/2018 CLINICAL: /Routine. Current study was evaluated with a Computer Aided Detection (CAD) system. COMPARISON:Comparison is made to exams dated: 2017 mammogram - [facility], 03/30/2015 mammogram - [facility], and 02/14/2014 mammogram - [facility]. TECHNIQUE: Mammographic views were obtained using digital [...] are recommended. This exam was interpreted at [id number] at [facility]. Professional services are provided by the [facility] Division of Diagnostic Imaging. Aleja Carballo M.D. /penrad:04/09/2018 15:44:49 Remedial Project Manager(s): Daniella Roman [facility] letter sent: BI-RADS 0 Mammogram BI-RADS: 0 Indeterminate 04/09/2018 AZUL Horn Ext Lower non vascular US REASON FOR [...] of the right thigh. SL: 16 04/20/2017 AZUL Horn Hip 2/3 views uni DX Pelvis pelvis [...] AP views of the right hip. SL: [id number] 04/08/2017 [facility] Breast Mammo Scrn HANK incl CAD MA - BREAST MAMMO SCRN HANK INCL CAD MA BILATERAL DIGITAL SCREENING MAMMOGRAM WITH CAD: 2017 CLINICAL: Routine. Current study was evaluated with a Computer Aided Detection (CAD) system. Comparison is made to exams dated: 03/30/2015 mammogram - [facility], 02/14/2014 mammogram, 03/05/2013 mammogram, 01/17/2012 mammogram, 02/17/2011 mammogram and 01/27/2011 mammogram - [facility]. There are scattered fibroglandular densities in both [...] 1 year screening mammogram is recommended. Elizabeth livingston/yolie:2017 10:29:24 copy to: Johann Jones M.D., ph: Remedial Project Manager: Abiola Hillman, [facility] This exam was dictated and interpreted by [id number] for [facility]. letter sent: Normal exam Mammogram BI-RADS: 2 Benign 2017 [facility] Bone Density Scan Patient Name: MK MERRITT : 1955; Age: 62 years y/o Female MR: [id number] Study: Bone Density Scan 2017 8:32 AM [...] standard deviations below peak bone mass. SL: [id number] 2017 [facility] Digital Mammo Screen Hank MA w [...] mammogram, 01/27/2011 mammogram and 01/24/2011 mammogram - [facility]. There are scattered fibroglandular densities in both [...] 15:00:33 copy to: Johann Jones M.D., ph: Remedial Project Manager: Luh Torres [facility] This exam was dictated and interpreted by [id number] for [facility]. letter sent: Normal exam Mammogram BI-RADS: 2 Benign 03/30/2015 [facility] [place] Hand AP lateral oblique LEFT HAND RADIOGRAPH 3 VIEWS INDICATION: Injury COMPARISON: None FINDINGS: No fractures or dislocations are seen. The joint spaces are maintained. No osteolytic or sclerotic lesions are visualized. The regional soft tissues are unremarkable. IMPRESSION: No acute bony abnormalities are visualized. SL: 16 09/24/2014 [facility] [place] Digital Mammo Screening Hank MA - DIGITAL MAMMO SCREENING HANK MA BILATERAL DIGITAL SCREENING MAMMOGRAM WITH CAD: 02/14/2014 CLINICAL: Routine. Current study was evaluated with a Computer Aided Detection (CAD) system. Comparison is made to exams dated: 03/05/2013 mammogram, 01/17/2012 mammogram, 02/17/2011 mammogram, 01/27/2011 mammogram, 01/24/2011 mammogram - [facility] and 12/10/2003. Current study contains 4 films. [...] mammogram in one year is recommended. Marcus funes/yolie:02/19/2014 14:16:36 copy to: Johann Jones M.D., ph: Remedial Project Manager: Lori Olivera, [facility] This exam was dictated and interpreted by [id number] for [facility]. letter sent: Bilateral Benign Mammogram BI-RADS: 2 Benign 02/14/2014 [facility] Pelvis w Pelvis Transvaginal US TRANSABDOMINAL PELVIC [...] cyst in the left ovary. SL:13 02/14/2014 [facility] Bowel colon Barium enema DOUBLE CONTRAST BARIUM ENEMA. HISTORY: 58-year-old female who underwent a screening colonoscopy which was incomplete. The patient was referred for a barium enema examination 2 complete evaluation of the colon. COMMENT: A double contrast barium and was performed in the usual fashion the fluoroscopy time was 4.5 minutes. FINDINGS: A oil scout radiograph was initially performed. Of the bowel [...] enema. SL: 13 Armando Duran M.D. 12/04/2013 [facility] Consultation Notes No Data Provided for This Section Discharge Summaries No Data Provided for This Section History and Physicals No Data Provided for This Section Vital Signs Vital Sign Value Date Comments Source Height 157.48 cm 12/13/2018 [facility] BMI Calculated 30.79 12/13/2018 [facility] Weight 76.364 12/13/2018 [facility] Heart Rate 57 12/13/2018 [facility] Temperature Oral (F) 97.9 F 12/13/2018 [facility] Systolic (mm Hg) 132 12/13/2018 [facility] Diastolic (mm Hg) 86 12/13/2018 [facility] Weight 77.273 06/21/2018 [facility] BMI Calculated 31.16 06/21/2018 [facility] Height 157.48 cm 06/21/2018 [facility] Systolic (mm Hg) 124 06/21/2018 [facility] Diastolic (mm Hg) 74 06/21/2018 [facility] Heart Rate 68 06/21/2018 [facility] Temperature Oral (F) 98.2 F 06/21/2018 [facility] Temperature Oral (F) 98.3 F 06/01/2018 [facility] Heart Rate 61 06/01/2018 [facility] Systolic (mm Hg) 113 06/01/2018 [facility] Diastolic (mm Hg) 73 06/01/2018 [facility] Weight 84.091 10/31/2017 [facility] BMI Calculated 35.03 10/31/2017 [facility] Height 154.94 cm 10/31/2017 [facility] Systolic (mm Hg) 143 10/31/2017 [facility] Diastolic (mm Hg) 80 10/31/2017 [facility] Temperature Oral (F) 98.2 F 10/31/2017 [facility] Heart Rate 65 10/31/2017 [facility] Encounters Location Location Details Encounter Type Encounter Number Reason For Visit Attending Provider ADM Date DC Date Status Source [facility] Outpatient [id number] Manuela Lomelies-Dominguez 02/14/2014 02/15/2014 [facility] [place] [facility] [id number] Demetra Pettit 09/24/2014 09/25/2014 [facility] [place] [facility] Outpatient [facility] [place] [facility] [id number] Manuela Lomelies-Dominguez 03/30/2015 03/31/2015 [facility] [place] Outpatient [id number] MCCRARY WILVER 02/16/2016 Active [facility] Outpatient [id number] MCCRARY WILVER 07/21/[address] [facility] Outpatient [id number] Manuela Donato-Dominguez 2017 01/14/2017 [facility] Outpatient [id number] MCCRARY WILVER 03/31/2017 Active [facility] Outpatient [id number] JUDY JACQUES 04/08/2017 Active [facility] Outpatient [id number] DEMETRA WILVER 04/13/2017 Active [facility] Outpatient [facility] [place] [facility] [id number] Mccrary Wilver 04/20/2017 04/21/2017 [facility] [place] Outpatient [id number] DEMETRA WILVER 06/08/2017 Active [facility] Outpatient [id number] MCCRARY WILVER 10/31/2017 Active [facility] [place] Outpatient [id number] Mccrary Wilver 10/31/2017 11/01/2017 [facility] [place] Phone Message [id number] 01/15/2018 01/17/2018 [facility] [place] Phone Message [id number] 01/24/2018 01/26/2018 [facility] [place] Phone Message [id number] 01/24/2018 01/26/2018 [facility] [place] Phone Message [id number] 01/31/2018 02/02/2018 [facility] Out[facility] [place] [facility] [id number] Manuela Lomelies-Dominguez 04/09/2018 04/10/2018 [facility] Outpatient Imaging [place] [facility] [id number] Manuela Donato-Dominguez 04/20/2018 04/21/2018 [facility] [place] Phone Message [id number] 05/18/2018 05/20/2018 [facility] Outpatient [id number] DEMETRA PETTIT [facility]/01/2018 [facility] [place] [facility] [id number] Demetra Pettit 06/01/2018 06/02/2018 [facility] [place] Outside Medical Records [id number] 06/06/2018 06/08/2018 [facility] Group Outpatient [id number] DEMETRA PETTIT 06/21/2018 Active [facility] [place] Outpatient [id number] Demetra Pettit 06/21/2018 06/22/2018 [facility] [place] Phone Message [id number] 06/29/2018 07/01/2018 [facility] [place] Phone Message [id number] 07/03/2018 07/05/2018 [facility] [place] Outside Medical Records [id number] 07/04/2018 07/06/2018 [facility] [place] Phone Message [id number] 07/09/2018 07/11/2018 [facility] [place] Phone Message [id number] 07/19/2018 07/21/2018 [facility] [place] Phone Message [id number] 07/19/2018 07/21/2018 [facility] [place] Phone Message [id number] 07/19/2018 07/21/2018 [facility] [place] Phone Message [id number] 08/27/2018 08/29/2018 [facility] [place] Phone Message [id number] 09/05/2018 09/07/2018 [facility] [place] Phone Message [id number] 09/07/2018 09/09/2018 [facility] [place] Phone Message [id number] 10/29/2018 10/31/2018 [facility] [place] Between Visit [id number] 11/14/2018 11/15/2018 [facility] Outpatient [id number] Demetra Pettit 12/13/2018 [facility] [place] Outpatient [id number] Demetra Pettit 12/13/2018 12/14/2018 [facility] [place] Phone Message [id number] 12/21/2018 12/23/2018 [facility] [place] Between Visit [id number] 02/05/2019 02/06/2019 [facility] [place] Between Visit [id number] 03/12/2019 03/13/2019 [facility] [place] Between Visit [id number] 03/18/2019 03/19/2019 [facility] [place] Between Visit [id number] 03/18/2019 03/19/2019 [facility] Procedures Procedure Code Date Perfomer Comments Source Breast biopsy and related procedures [id number] [facility] [place] Cholecystectomy [id number] [facility] [place] Hysterectomy [id number] [facility] [place] Laparoscopic sleeve gastrectomy [id number] [facility] [place] Breast biopsy and related procedures [id number] [facility] [id number] Hysterectomy [id number] [facility] Laparoscopic sleeve gastrectomy [id number] [facility] Tonsillectomy [id number] [facility] Breast biopsy and related procedures [id number] [facility] Cholecystectomy [id number] [facility] Hysterectomy [id number] [facility] Laparoscopic sleeve gastrectomy [id number] [facility] Tonsillectomy [id number] [facility] Breast biopsy and related procedures [id number] [facility] [place] Cholecystectomy [id number] [facility] [place] Hysterectomy [id number] [facility] [place] Laparoscopic sleeve gastrectomy [id number] [facility] [place] Tonsillectomy [id number] [facility] [place] Tonsillectomy [id number] [facility] [place] Assessment and Plan No Data Provided for This Section Plan of Care No Data Provided for This Section Social History Social History Date Source Social History TypeResponse Smoking Status Former smoker; Exposure to Tobacco Smoke None; Cigarette Smoking Last 365 Days No; Reg Smoking Cessation Counseling No entered on: 12/13/18 12/13/2018 [facility] Social History TypeResponse Smoking Status Former smoker; Exposure to Tobacco Smoke None; Cigarette Smoking Last 365 Days No; Reg Smoking Cessation Counseling No entered on: 06/21/18 06/21/2018 AZUL Peterman Social History TypeResponse Smoking Status Former smoker; Exposure to Tobacco Smoke None; Cigarette Smoking Last 365 Days No; Reg Smoking Cessation Counseling No entered on: 06/21/18 06/21/2018 AZUL Hernandez Social History TypeResponse Smoking Status Former smoker; Exposure to Tobacco Smoke None; Cigarette Smoking Last 365 Days No; Reg Smoking Cessation Counseling No 07/21/2016 [facility] Family History No Data Provided for This Section Advance Directives No Data Provided for This Section Functional Status No Data Provided for This Section
--- OUTSIDE RECORDS SUMMARY | 2019-04-04 05:40 | XMS REPORT | Summary of Care ---
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 Depressive disorder5 Active Dyslipidemia6 07/17/07 Active Exposure to sexually 08/13/09 Resolved transmissible disorder7 Fatigue8 11/07/13 Active Gastroenteritis9 01/27/09 Resolved Gastroesophageal Active reflux gdahdaq39 Hematoma(Confirmed) Active Jaw Active hematoma(Confirmed) Hypercholesterolemia 01/05/12 Active 11 Iscilvbyzjjbq80 05/28/14 Active Hypertensive 03/30/15 Active pzixxlt33 Hypertriglyceridemia 03/30/15 Active 14 Hypothyroid(Confirme Active d) Dumyqflecofich67 05/13/08 Active Impaired fasting 08/13/09 Active eyfdoceou77 Uzytrxdzy41 12/09/10 Resolved Injury of hand18 09/22/14 Active Chvmmygd70 05/01/07 Active Long-term drug 05/13/08 Active qtezidn22 Malaise and 05/13/08 Active hzxjrur33 Menopausal 01/27/09 Active zwomzupj27 Murmur(Confirmed) Active Obesity(Confirmed) Active Rxxoded88 12/07/07 Resolved Staphylococcal 05/13/08 Resolved infectious tyjjcid20 Streptococcal sore 12/07/07 Resolved rnzbey07 Contusion of Active hip(Confirmed) Upper respiratory 07/17/07 Resolved rgcynfdrd87 Urinary tract 12/29/10 Resolved infectious ercaidu80 Vtxiugtb30 12/09/10 Resolved 1Data migrated from [employer] [...] Migrated from OBS ; Data migrated from [employer] on 10/26/2015. 2Result Comment: recombivaxhb. Migrated from OBS ; Data migrated from [employer] on 10/26/2015. 3Result Comment: tdap. Migrated from OBS ; Data migrated from [employer] on 10/26/2015. 4Result Comment: tdap. Migrated from OBS VIS: 08-12-08 given August 13, 2009. ; Data migrated from [employer] on 10/26/2015. Procedures Procedure Date Related Diagnosis [...]
--- OUTSIDE RECORDS SUMMARY | 2019-04-04 05:41 | XMS REPORT | Summary of Care ---
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 Depressive disorder5 Active Dyslipidemia6 07/17/07 Active Exposure to sexually 08/13/09 Resolved transmissible disorder7 Fatigue8 11/07/13 Active Gastroenteritis9 01/27/09 Resolved Gastroesophageal Active reflux bhkwura50 Hematoma(Confirmed) Active Jaw Active hematoma(Confirmed) Hypercholesterolemia 01/05/12 Active 11 Aazmihrmzoqcw78 05/28/14 Active Hypertensive 03/30/15 Active dvbumyy99 Hypertriglyceridemia 03/30/15 Active 14 Hypothyroid(Confirme Active d) Qiijdkmqhnaugq72 05/13/08 Active Impaired fasting 08/13/09 Active vnuzczhsg99 Nagdocspg78 12/09/10 Resolved Injury of hand18 09/22/14 Active Ajxwvooc96 05/01/07 Active Long-term drug 05/13/08 Active ggevkoj79 Malaise and 05/13/08 Active bwgajrx28 Menopausal 01/27/09 Active hfgzmwaj27 Murmur(Confirmed) Active Obesity(Confirmed) Active Awcohbr30 12/07/07 Resolved Staphylococcal 05/13/08 Resolved infectious Streptococcal sore 12/07/07 Resolved Contusion of Active hip(Confirmed) Upper respiratory 07/17/07 Resolved pmujldcdb59 Urinary tract 12/29/10 Resolved infectious iebflvj82 Lfrwwkvj31 12/09/10 Resolved 1Data migrated from [employer] [...] Migrated from OBS ; Data migrated from [employer] on 10/26/2015. 2Result Comment: recombivaxhb. Migrated from OBS ; Data migrated from [employer] on 10/26/2015. 3Result Comment: tdap. Migrated from OBS ; Data migrated from [employer] on 10/26/2015. 4Result Comment: tdap. Migrated from OBS VIS: 08-12-08 given August 13, 2009. ; Data migrated from [employer] on 10/26/2015. Procedures Procedure Date Related Diagnosis [...]
--- OUTSIDE RECORDS SUMMARY | 2019-04-04 05:42 | XMS REPORT | Summary of Care ---
Author Author [facility] [place] Organization [facility] [place] Address Unknown Phone Unavailable Encounter HQ Zackary_phil(FIN) [id number] Date(s): 03/12/19 - 03/13/19 [facility] [place] [address] [place] [address]- [phone] Vital Signs No data available for this section Problem List Condition Effective Dates Status Health Status Informant Acute maxillary 07/09/12 Resolved sinusitis1 Acute pharyngitis2 08/26/10 Resolved Acute sinusitis3 09/15/09 Resolved 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 Depressive disorder5 Active Dyslipidemia6 07/17/07 Active Exposure to sexually 08/13/09 Resolved transmissible disorder7 Fatigue8 11/07/13 Active Gastroenteritis9 01/27/09 Resolved Gastroesophageal Active reflux iilnrgl82 Hematoma(Confirmed) Active Jaw Active hematoma(Confirmed) Hypercholesterolemia 01/05/12 Active 11 Macvsitjovasi83 05/28/14 Active Hypertensive 03/30/15 Active Hypertriglyceridemia 03/30/15 Active 14 Hypothyroid(Confirme Active d) Trokpzvqciaaap63 05/13/08 Active Impaired fasting 08/13/09 Active akckdvhto01 Nevvcsnlu97 12/09/10 Resolved Injury of hand18 09/22/14 Active Dquyvhmp35 05/01/07 Active Long-term drug 05/13/08 Active juqihzx67 Malaise and 05/13/08 Active yazrdja62 Menopausal 01/27/09 Active qaootbps89 Murmur(Confirmed) Active Obesity(Confirmed) Active Rohbaxg27 12/07/07 Resolved Staphylococcal 05/13/08 Resolved infectious ldtloiu94 Streptococcal sore 12/07/07 Resolved shtyij97 Contusion of Active hip(Confirmed) Upper respiratory 07/17/07 Resolved oaiivcdav41 Urinary tract 12/29/10 Resolved infectious ywfxlft53 Rywccfjr91 12/09/10 Resolved 1Data migrated from [employer] [...] problems, e.g., rash, hives ; SOB Medications Levothyroxine Sodium 25 MCG Tablet =1 tab, PO, Daily, # 90 tab, Refill(s) 3, TAKE IN ADDITION TO THE OTHER MED., Ph armacy: [facility] Start Date: 03/12/19 Status: Ordered Results No data available for this section Immunizations Given and Recorded Vaccine Date Status Refusal Reason Hx hepatitis B vaccine1 04/14/10 Given Hx hepatitis B vaccine2 08/14/09 Given diphtheria/pertussis, acel/tetanus adult3 08/13/09 Given tetanus-diphtheria toxoids4 08/13/09 Given pneumococcal 23-valent vaccine 06/15/06 Given 1Result Comment: engerix. Migrated from OBS ; Data migrated from [employer] on 10/26/2015. 2Result Comment: recombivaxhb. Migrated from OBS ; Data migrated from [email or web address] on 10/26/2015. 3Result Comment: tdap. Migrated from OBS ; Data migrated from [email or web address] on 10/26/2015. 4Result Comment: tdap. Migrated from OBS VIS: 08-12-08 given August 13, 2009. ; Data migrated from [employer] on 10/26/2015. Procedures Procedure Date Related Diagnosis [...]
--- OUTSIDE RECORDS SUMMARY | 2019-04-04 05:43 | XMS REPORT | Summary of Care ---
Author Author [facility] [place] Organization [facility] [place] Address Unknown Phone Unavailable Encounter HQ Merryr_phil(FIN) [id number] Date(s): 08/27/18 - 08/28/18 [facility] [place] [address] [place] [address]- [phone] Vital Signs No data available for this section Problem List Condition Effective Dates Status Health Status Informant Acute maxillary 07/09/12 Resolved sinusitis1 Acute pharyngitis2 08/26/10 Resolved Acute sinusitis3 09/15/09 Resolved 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 Depressive disorder5 Active Dyslipidemia6 07/17/07 Active Exposure to sexually 08/13/09 Resolved transmissible disorder7 Fatigue8 11/07/13 Active Gastroenteritis9 01/27/09 Resolved Gastroesophageal Active reflux kfhisem13 Hematoma(Confirmed) Active Jaw Active hematoma(Confirmed) Hypercholesterolemia 01/05/12 Active 11 Xpxkvophuvmaa11 05/28/14 Active Hypertensive 03/30/15 Active Hypertriglyceridemia 03/30/15 Active 14 Hypothyroid(Confirme Active d) Fkygsnlmaxznbm04 05/13/08 Active Impaired fasting 08/13/09 Active Zwdcjrtkf35 12/09/10 Resolved Injury of hand18 09/22/14 Active Fjxuuedr32 05/01/07 Active Long-term drug 05/13/08 Active xfkaxkg68 Malaise and 05/13/08 Active xfcqbhu90 Menopausal 01/27/09 Active qjawimyg06 Murmur(Confirmed) Active Obesity(Confirmed) Active Mvwtven32 12/07/07 Resolved Staphylococcal 05/13/08 Resolved infectious xcerzhh42 Streptococcal sore 12/07/07 Resolved Contusion of Active hip(Confirmed) Upper respiratory 07/17/07 Resolved Urinary tract 12/29/10 Resolved infectious Qgwugrla82 12/09/10 Resolved 1Data migrated from [employer] [...] problems, e.g., rash, hives ; SOB Medications PROzac 20 mg oral capsule 20 mg=1 cap, PO, Daily, # 30 cap, 3 Refill(s), Pharmacy: [id number] Start Date: 08/27/18 Stop Date: 12/25/18 Status: Ordered Xanax 0.5 mg oral tablet 0.5 mg=1 tab, PO, TID, X 30 day, # 90 tab, 1 Refill(s) Start Date: 08/27/18 Stop Date: 10/26/18 Status: Completed Results No data available for this section Immunizations Given and Recorded Vaccine Date Status Refusal Reason Hx hepatitis B vaccine1 04/14/10 Given Hx hepatitis B vaccine2 08/14/09 Given diphtheria/pertussis, acel/tetanus adult3 08/13/09 Given tetanus-diphtheria toxoids4 08/13/09 Given pneumococcal 23-valent vaccine 06/15/06 Given 1Result Comment: engerix. Migrated from OBS ; Data migrated from [employer] on 10/26/2015. 2Result Comment: recombivaxhb. Migrated from OBS ; Data migrated from [employer] on 10/26/2015. 3Result Comment: tdap. Migrated from OBS ; Data migrated from [employer] on 10/26/2015. 4Result Comment: tdap. Migrated from OBS VIS: 08-12-08 given August 13, 2009. ; Data migrated from [email or web address] on 10/26/2015. Procedures Procedure Date Related Diagnosis [...]
--- OUTSIDE RECORDS SUMMARY | 2019-04-04 05:43 | XMS REPORT | Summary of Care ---
Author Author [facility] [place] Organization [facility] [place] Address Unknown Phone Unavailable Encounter HQ Zackary_phil(FIN) [id number] Date(s): 03/18/19 - 03/19/19 [facility] [place] [address] [place] [address]- [phone] Vital Signs No data available for this section Problem List Condition Effective Dates Status Health Status Informant Acute maxillary 07/09/12 Resolved sinusitis1 Acute pharyngitis2 08/26/10 Resolved Acute sinusitis3 09/15/09 Resolved 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 Depressive disorder5 Active Dyslipidemia6 07/17/07 Active Exposure to sexually 08/13/09 Resolved transmissible disorder7 Fatigue8 11/07/13 Active Gastroenteritis9 01/27/09 Resolved Gastroesophageal Active reflux gazpesn03 Hematoma(Confirmed) Active Jaw Active hematoma(Confirmed) Hypercholesterolemia 01/05/12 Active 11 Wfhrgjmulbolq97 05/28/14 Active Hypertensive 03/30/15 Active klneecp93 Hypertriglyceridemia 03/30/15 Active 14 Hypothyroid(Confirme Active d) Bztcznqhkjktbf03 05/13/08 Active Impaired fasting 08/13/09 Active Icxylzaih75 12/09/10 Resolved Injury of hand18 09/22/14 Active Upfmneto45 05/01/07 Active Long-term drug 05/13/08 Active rosmliz55 Malaise and 05/13/08 Active ieeakkj21 Menopausal 01/27/09 Active Murmur(Confirmed) Active Obesity(Confirmed) Active Yzrbndz96 12/07/07 Resolved Staphylococcal 05/13/08 Resolved infectious jnihwgy09 Streptococcal sore 12/07/07 Resolved lhkuqa56 Contusion of Active hip(Confirmed) Upper respiratory 07/17/07 Resolved ggisylftv47 Urinary tract 12/29/10 Resolved infectious odbyzzm96 Zooozzyz87 12/09/10 Resolved 1Data migrated from [employer] [...] Migrated from OBS ; Data migrated from [employer] on 10/26/2015. 2Result Comment: recombivaxhb. Migrated from OBS ; Data migrated from [employer] on 10/26/2015. 3Result Comment: tdap. Migrated from OBS ; Data migrated from [employer] on 10/26/2015. 4Result Comment: tdap. Migrated from OBS VIS: 08-12-08 given August 13, 2009. ; Data migrated from [employer] on 10/26/2015. Procedures Procedure Date Related Diagnosis [...]
--- OUTSIDE RECORDS SUMMARY | 2019-04-04 05:43 | XMS REPORT | Summary of Care ---
Author Author [facility] [place] Organization [facility] [place] Address Unknown Phone Unavailable Encounter HQ Zackary_phil(FIN) [id number] Date(s): 03/18/19 - 03/19/19 [facility] [place] [address] [place] [address]- [phone] Vital Signs No data available for this section Problem List Condition Effective Dates Status Health Status Informant Acute maxillary 07/09/12 Resolved sinusitis1 Acute pharyngitis2 08/26/10 Resolved Acute sinusitis3 09/15/09 Resolved 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 Depressive disorder5 Active Dyslipidemia6 07/17/07 Active Exposure to sexually 08/13/09 Resolved transmissible disorder7 Fatigue8 11/07/13 Active Gastroenteritis9 01/27/09 Resolved Gastroesophageal Active reflux jlmsyha51 Hematoma(Confirmed) Active Jaw Active hematoma(Confirmed) Hypercholesterolemia 01/05/12 Active 11 Bsjstfogvylpy18 05/28/14 Active Hypertensive 03/30/15 Active Hypertriglyceridemia 03/30/15 Active 14 Hypothyroid(Confirme Active d) Vptacuruxyplpc68 05/13/08 Active Impaired fasting 08/13/09 Active fmmdafcig73 Czupdandn91 12/09/10 Resolved Injury of hand18 09/22/14 Active Zsjjwibk25 05/01/07 Active Long-term drug 05/13/08 Active Malaise and 05/13/08 Active Menopausal 01/27/09 Active kajyjxod20 Murmur(Confirmed) Active Obesity(Confirmed) Active Uswlxmo88 12/07/07 Resolved Staphylococcal 05/13/08 Resolved infectious oyhmnod65 Streptococcal sore 12/07/07 Resolved wjymvj79 Contusion of Active hip(Confirmed) Upper respiratory 07/17/07 Resolved aqugreuhz77 Urinary tract 12/29/10 Resolved infectious mczqodx44 Hkbmamsv62 12/09/10 Resolved 1Data migrated from [employer] [...] oral tablet 0.5 mg=1 tab, PO, TID, PRN Anxiety, X 30 day, # 90 tab, 1 Refill(s) Start Date: 03/18/19 Stop Date: 05/17/19 Status: Ordered Results No data available for this section Immunizations Given and Recorded Vaccine Date Status Refusal Reason Hx hepatitis B vaccine1 04/14/10 Given Hx hepatitis B vaccine2 08/14/09 Given diphtheria/pertussis, acel/tetanus adult3 08/13/09 Given tetanus-diphtheria toxoids4 08/13/09 Given pneumococcal 23-valent vaccine 06/15/06 Given 1Result Comment: engerix. Migrated from OBS ; Data migrated from [employer] on 10/26/2015. 2Result Comment: recombivaxhb. Migrated from OBS ; Data migrated from [employer] on 10/26/2015. 3Result Comment: tdap. Migrated from OBS ; Data migrated from [employer] on 10/26/2015. 4Result Comment: tdap. Migrated from OBS VIS: 08-12-08 given August 13, 2009. ; Data migrated from [employer] on 10/26/2015. Procedures Procedure Date Related Diagnosis [...]
[2019-04-04 07:50] VITALS: BP 110/69
== END | disposition home or self-care (01) ==
LOC: OR 05:34
PROVIDERS: ATTEND Physical Medicine & Rehabilitation Pain Medicine
DX: M54.16 Radiculopathy, lumbar region (principal); G90.522 Complex regional pain syndrome I of left lower limb; E11.9 Type 2 diabetes mellitus without complications; E03.9 Hypothyroidism, unspecified; K21.9 Gastro-esophageal reflux disease without esophagitis; K44.9 Diaphragmatic hernia without obstruction or gangrene; R01.1 Cardiac murmur, unspecified; F32.9 Major depressive disorder, single episode, unspecified; F41.9 Anxiety disorder, unspecified; Z88.6 Allergy status to analgesic agent; Z68.31 Body mass index [BMI] 31.0-31.9, adult; Z96.652 Presence of left artificial knee joint; Z91.81 History of falling
CPT/HCPCS: 64483; 64484; J1100; J2001 ×2; J2250; J2704; J3010; Q9967; 77003

== ENCOUNTER → 2019-04-11 | Day surgery (SDC) | payer OTHER ==
--- OUTSIDE RECORDS SUMMARY | 2019-04-11 06:19 | XMS REPORT | Clinical Summary ---
Author Author [facility] Organization [facility] Address Unknown Phone Unavailable Care Team Providers Care Culinary Intern Name Role Phone Asked, No Pcp PCP [...] encounter 06/01/2018 Office Visit Orthopedic Surgery after 04/10/2018 Social History Date Tobacco Use Types Packs/Day [...] Description Date Type Specialty Mayank Pearson MD [address] [phone] Edita Cid 04/15/2019 Office Visit Physical Therapy Mayank Pearson MD [address] [phone] Edita Cid 04/22/2019 Office Visit Physical Therapy Mayank Pearson MD [address] [id number] Edita Cid 04/26/2019 Office Visit Physical Therapy Mayank Pearson MD [address] [phone] Eli Lozano, PAULINA 05/03/2019 Office Visit Physical Therapy Health Maintenance Due Date Last Done Comments BREAST CANCER SCREENING 01/12/2006 COLONOSCOPY SCREENING 01/12/2006 SHINGLES VACCINES (#1) 01/12/2006 INFLUENZA VACCINE 04/25/2019 Implants Device Identifier Shelf Expiration Date Model / Serial / Lot Implanted Type Area Manufactur er 10/16/2022 [id number] / [id number] / LOT NA Tendon Achls Allograft Leader W/ Human Left: Knee MUSCULOSKE Clcns 19.5-38cm 10-20mm - Tissue LETAL [id number] - [id number] Implants TRANSPLANT Implanted: Qty: 1 on 06/07/2018 by [facility] Mayank Pearson MD 02/22/2023 AR [id number] / / [id number] Suture Bumpass, Peek Corkscrew - IPM Left: Knee ARTHREX [id number] IMPLANT ORTHOPEDIC Implanted: Qty: 1 on 06/07/2018 by DEVICES Mayank Pearson MD 10/18/2022 [id number] / / [id number] Screw Intrfrnce Plla Cordova 7x20mm Orthopedic Left: Knee ORDONEZ AND Biosure - [id number] Trauma NEPHEW Implanted: Qty: 1 on 06/07/2018 by Implants ENDOSCOPY Mayank Pearson MD 09/24/2019 AR [id number] Suture Bumpass Dbl Loaded Biocomp Orthopedic Left: Knee ARTHREX Swvlk 4.75mm X 22mm - [id number] [employer] Implanted: Qty: 1 on 06/07/2018 by Implants Mayank Pearson MD 09/24/2022 AR [id number] / [id number] Screw Tib 9mm Graftbolt - Orthopedic Left: Knee ARTHREX [id number] [employer] Implanted: Qty: 1 on 06/07/2018 [...] AM CDT Procedure Note - Robb Boss, RADIOLOGY SPECIAL PROCEDURE TECH - 06/07/2018 10:13 AM CDT Airway Date/Time: [...] 05/25/2018 EXTERNAL STUDY 2:33 PM CDT after 04/10/2018 Results * XR Knee 1 Or 2 Vw Left (06/12/2018 2:06 PM CDT) Specimen Narrative Performed At [facility] Tunnels in good position Performing Organization Address [facility] Phone Number [facility] [address] [place] [address] * Thyroid stimulating hormone (06/08/2018 7:33 PM CDT) Pathologist [facility] TSH 6.05 (H) 0.27 - 4.20 uIU/mL [facility] DEPARTMENT OF PATHOLOGY AND GENOMIC MEDICINE Specimen Plasma specimen Performing Organization Address [facility] Phone Number [facility] [place] [address] PATHOLOGY AND GENOMIC MEDICINE * T4, free (06/08/2018 7:33 PM CDT) [facility] T4, free 1.6 0.9 - 1.7 ng/dL [facility] DEPARTMENT OF PATHOLOGY AND GENOMIC MEDICINE Specimen Plasma specimen Performing Organization Address [facility] Phone Number [facility] [place] [address] PATHOLOGY AND GENOMIC MEDICINE * POC glucose (06/07/2018 1:05 PM CDT) Only the most recent of 2 results within the time period is included. Pathologist [facility] POC glucose 173 (H) 65 - 99 mg/dL [facility] Comment: OF PATHOLOGY [facility] Notified RN AND GENOMIC Meter ID: [id number] MEDICINE Senior Marketing Specialist: Reno Ambrose Specimen Performing Organization Address [facility] Phone Number [facility] [place] [address] PATHOLOGY AND GENOMIC MEDICINE * MRI Lower Extremity External Study (05/25/2018 2:33 PM CDT) Specimen Narrative Performed At This exam was not acquired at a [facility] facility and has not been [facility] interpreted by a [facility] Provider.The exam was imported into our imaging system for comparisons purposes. Performing Organization Address [facility] Phone Number [facility] [address] [place] [address] after 04/10/2018 Insurance Type Payer Benefit Subscriber ID Effective Phone Address Plan / Dates Group HMO SHAYLA MCGUIRE OPEN xxxxxxxxxxx 2016-P ACCESS/NET resent WORK Advance Directives Patient has advance care planning documents on file. For more information, truong gutierrez contact: Carlyle Huang [address] [place] [address]
--- OUTSIDE RECORDS SUMMARY | 2019-04-11 06:19 | XMS REPORT | Continuity of Care Document ---
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 [facility], AZUL Horn,[facility], [facility] [place] Kcqsixxikphgejjfrpic77 Active 03/30/2015 Problem 03/29/2019 Data migrated from [employer] on 04/29/15. [facility], AZUL Horn,[facility], [facility] [place] Injury of hand10 Active 09/22/2014 Problem 04/02/2015 10Data migrated from [employer] on 02/21/15. [facility] [place] Injury of hand18 Active 09/22/2014 Problem 03/29/2019 Data migrated from [employer] on 02/21/15. [facility], AZUL Horn,[facility], [facility] [place] Hyperglycemia7 Active 05/28/2014 Problem 04/02/2015 7Data migrated from [employer] on 02/21/15. [facility] [place] Nzqvhrgkbmghn54 Active 05/28/2014 Problem 03/29/2019 Data migrated from [employer] on 02/21/15. [facility], ZAUL Horn,[facility], [facility] [place] ROUTINE Active 02/11/2014 [facility] V76.10 PELVIC PAIN Active 02/11/2014 [place] UNK Active 11/26/2013 [facility] Fatigue4 Active 11/07/2013 Problem 04/02/2015 4Data migrated from [employer] on 02/21/15. [facility] [place] Fatigue8 Active 11/07/2013 Problem 03/29/2019 Data migrated from [employer] on 02/21/15. [facility], [facility] [place], [place], [facility] [place] Acute maxillary sinusitis1 Resolved 07/09/2012 Problem 03/29/2019 Data migrated from [employer] on 04/11/15. [facility], [facility] [place], [place], [facility] [place] Hypercholesterolemia6 Active 01/05/2012 Problem 04/02/2015 6Data migrated from [employer] on 02/21/15. [facility] [place] Pqtzjjrwsvoaljmoepfw43 Active 01/05/2012 Problem 03/29/2019 Data migrated from [employer] on 02/21/15. [facility], [facility] [place], [place], [facility] [place] Benign tumor of breast1 Active 02/09/2011 Problem 04/02/2015 1Data migrated from [employer] on 02/21/15. [facility] [place] Benign tumor of breast4 Active 02/09/2011 Problem 03/29/2019 Data migrated from [employer] on 02/21/15. [facility], [facility] [place], [place], [facility] [place] Urinary tract infectious qfijibi55 Resolved 12/29/2010 Problem 03/29/2019 Data migrated from [employer] on 04/11/15. [facility], [facility] [place], [place], [facility] [place] Alrhuebwn60 Resolved 12/09/2010 Problem 03/29/2019 Data migrated from [employer] on 04/11/15. [facility], [facility] [place], [place], [facility] [place] Qlkdihgo97 Resolved 12/09/2010 Problem 03/29/2019 Data migrated from [employer] on 04/11/15. [facility], [facility] [place], [place], [facility] [place] Acute pharyngitis2 Resolved 08/26/2010 Problem 03/29/2019 Data migrated from [employer] on 04/11/15. [facility], [facility] [place], [place], [facility] [place] Acute sinusitis3 Resolved 09/15/2009 Problem 03/29/2019 Data migrated from [employer] on 04/11/15. [facility], [facility] [place], [place], [facility] [place] Impaired fasting glycaemia9 Active 08/13/2009 Problem 04/02/2015 9Data migrated from [employer] on 02/21/15. [facility] [place] Exposure to sexually transmissible disorder7 Resolved 08/13/2009 Problem 03/29/2019 Data migrated from [employer] on 04/11/15. [facility], [facility] [place], [place], [facility] [place] Impaired fasting glkxjowet38 Active 08/13/2009 Problem 03/29/2019 Data migrated from [employer] on 02/21/15. [facility], [facility] [place], [place], [facility] [place] Menopausal qbkrhsxo86 Active 01/27/2009 Problem 04/02/2015 14Data migrated from [employer] on 02/21/15. [facility] [place] Gastroenteritis9 Resolved 01/27/2009 Problem 03/29/2019 Data migrated from [employer] on 04/11/15. [facility], [facility] [place], [place], [facility] [place] Menopausal bqywnfmz72 Active 01/27/2009 Problem 03/29/2019 Data migrated from [employer] on 02/21/15. [facility], [facility] [place], [place], [facility] [place] Hypothyroidism8 Active 05/13/2008 Problem 04/02/2015 8Data migrated from [employer] on 02/21/15. [facility] [place] Long-term drug lucgcpo23 Active 05/13/2008 Problem 04/02/2015 12Data migrated from [employer] on 02/21/15. [facility] [place] Malaise and agaqblj66 Active 05/13/2008 Problem 04/02/2015 13Data migrated from [employer] on 02/21/15. [facility] [place] Quxkbnmmsuipbk77 Active 05/13/2008 Problem 03/29/2019 Data migrated from [employer] on 02/21/15. [facility], [facility] [place], [place], [facility] [place] Long-term drug mnuwbrs59 Active 05/13/2008 Problem 03/29/2019 Data migrated from [employer] on 02/21/15. [facility], [facility] [place], [place], [facility] [place] Malaise and Active 05/13/2008 Problem 03/29/2019 Data migrated from [employer] on 02/21/15. [facility], [facility] [place], [place], [facility] [place] Staphylococcal infectious bbmpzul42 Resolved 05/13/2008 Problem 03/29/2019 Data migrated from [employer] on 04/10/15. [facility], [facility] [place], [place], [facility] [place] Ttuoztd66 Resolved 12/07/2007 Problem 03/29/2019 Data migrated from [employer] on 04/11/15. [facility], [facility] [place], [place], [facility] [place] Streptococcal sore yxcrlm98 Resolved 12/07/2007 Problem 03/29/2019 Data migrated from [employer] on 04/11/15. [facility], [facility] [place], [place], [facility] [place] Dyslipidemia3 Active 07/17/2007 Problem 04/02/2015 3Data migrated from [employer] on 02/21/15. [facility] [place] Dyslipidemia6 Active 07/17/2007 Problem 03/29/2019 Data migrated from [employer] on 02/21/15. [facility], [facility] [place], [place], [facility] [place] Upper respiratory izbmxjqtu73 Resolved 07/17/2007 Problem 03/29/2019 Data migrated from [employer] on 04/11/15. [facility], [facility] [place], [place], [facility] [place] Okzdwxwg98 Active 05/01/2007 Problem 04/02/2015 11Data migrated from [employer] on 02/21/15. [facility] [place] Lyorlpnk70 Active 05/01/2007 Problem 03/29/2019 Data migrated from [employer] on 02/21/15. [facility], [facility] [place], [place], [facility] [place] Depressive disorder2 Active Problem 04/02/2015 2Data migrated from [employer] on 02/21/15. [facility] [place] Gastroesophageal reflux disease5 Active Problem 04/02/2015 5Data migrated from [employer] on 02/21/15. [facility] [place] Depressive disorder5 Active Problem 03/29/2019 Data migrated from [employer] on 02/21/15. [facility], [facility] [place], [place], [facility] [place] Gastroesophageal reflux xgmacgj72 Active Problem 03/29/2019 Data migrated from [facility] on 02/21/15. [facility], [facility] [place], [place], [facility] [place] Hematoma Active Problem 03/29/2019 [facility], [facility] [place], [facility] [place] Jaw hematoma Active Problem 03/29/2019 [facility], [facility] [place], [facility] [place] Hypothyroid Active Problem 03/29/2019 [facility], [facility] [place], [place], [facility] [place] Murmur Active Problem 03/29/2019 [facility], [facility] [place], [place], [facility] [place] Obesity Active Problem 03/29/2019 [facility], [facility] [place], [place], [facility] [place] Contusion of hip Active Problem 03/29/2019 [facility], [facility] [place], [facility] [place] Mammographic calcification found on diagnostic imaging of breast 11/07/2018 [facility] [place] LT HAND Active [facility] Medications Medication Details Route Status Patient Instructions Ordering Provider Order Date Source Alprazolam 0.5 MG Oral Tablet [Xanax] 0.5 mg=1 tab, PO, TID, PRN Anxiety, X 30 day, # 90 tab, 1 Refill(s) Active 03/18/2019 [facility] Levothyroxine Sodium 25 MCG Tablet =1 tab, PO, Daily, # 90 tab, Refill(s) 3, TAKE IN ADDITION TO THE OTHER MED., Pharmacy: [facility] Active 03/12/2019 [facility] vilazodone hydrochloride 20 MG Oral Tablet [Viibryd] 20 mg=1 tab, PO, Daily, # 30 tab, 3 Refill(s), Pharmacy: [place] [address] Active 02/05/2019 [facility] vilazodone hydrochloride 10 MG Oral Tablet [Viibryd] 10 mg=1 tab, PO, Daily, # 30 tab, 2 Refill(s), Pharmacy: [facility] Active 12/21/2018 Medical [...] Daily, # 30 tab, 2 Refill(s), Pharmacy: [place] [address] Active 12/13/2018 [facility] mirtazapine 30 mg oral tablet =2 tab, PO, Bedtime, # 180 tab, Refill(s) 3, Pharmacy: [facility] Active 12/03/2018 [facility] Alprazolam 0.5 MG Oral Tablet [Xanax] 0.5 mg=1 tab, PO, TID, X 30 day, # 90 tab, 1 Refill(s) No Longer Active 08/27/2018 [facility] Fluoxetine 20 MG Oral Capsule [Prozac] 20 mg=1 cap, PO, Daily, # 30 cap, 3 Refill(s), Pharmacy: [place] [address] Active 08/27/2018 [facility] Alprazolam 0.5 MG [...] day, # 30 cap, 1 Refill(s), Pharmacy: [place] [address] No Longer Active 07/05/2018 [facility] Lorazepam 1 MG Oral Tablet [Ativan] 1 mg=1 tab, PO, TID, X 30 day, # 90 tab, 1 Refill(s) No Longer Active 07/05/2018 [facility] 24 HR Bupropion Hydrochloride 150 MG Extended Release Tablet [Wellbutrin] 150 mg=1 tab, PO, Daily, please do not do the prozac, # 30 tab, 1 Refill(s), Pharmacy: [place] [address] No Longer Active 06/21/2018 [facility] Fluoxetine 10 MG Oral Capsule [Prozac] 10 mg=1 cap, PO, Daily, X 30 day, # 30 cap, 1 Refill(s), Pharmacy: [place] [address] No Longer Active 06/21/2018 [facility] Lorazepam 0.5 MG Oral Tablet [Ativan] 0.5 mg=1 tab, PO, TID, X 30 day, # 90 tab, 0 Refill(s) No Longer Active 06/21/2018 [facility] Acetaminophen 325 MG / Oxycodone [...] tab, 0 Refill(s) No Longer Active 06/01/2018 [facility] Acetaminophen 325 MG / Oxycodone Hydrochloride 10 MG Oral Tablet [Percocet 10/325] 1 tab, PO, Q8H, PRN Pain, # 90 tab, 0 Refill(s) No Longer Active 06/01/2018 [facility] zolpidem 10 mg oral tablet 10 mg=1 tab, PO, Bedtime, X 30 day, # 30 tab, 3 Refill(s) No Longer Active 05/18/2018 [facility] {6 (Azithromycin 250 MG Oral Tablet [Zithromax]) } Pack [Z-PAKS] See Instructions, Take 2 tablets by mouth the first day then 1 tablet by mouth days 2-5., X 5 day, # 6 tab, 0 Refill(s), Pharmacy: [place] [address] No Longer Active 10/31/2017 [facility] hydrochlorothiazide 12.5 mg oral tablet See Instructions, TAKE 1 TABLET BY MOUTH DAILY, # 90 tab, 2 Refill(s), Pharmacy: [facility] Active 10/31/2017 [facility] metFORMIN 500 mg oral tablet, extended release 500 mg=1 tab, PO, BID-Meals, X 90 day, # 180 tab, 3 Refill(s), Pharmacy: [facility] No Longer Active 10/31/2017 [facility] mirtazapine 30 mg oral tablet See Instructions, TAKE 2 TABLETS BY MOUTH AT BEDTIME, # 180 tab, 2 Refill(s), Pharmacy: [facility] Active 10/31/2017 [facility] topiramate 50 mg oral tablet 50 mg=1 tab, PO, BID, # 180 tab, 1 Refill(s), Pharmacy: [facility] Active 10/31/2017 [facility] Zolpidem tartrate 10 MG Oral [...] Drug allergy Active 05/01/2007 Data migrated from [employer] on 01/20/15. Originally documented as MORPHINE. Dermatological problems, e.g., rash, hives ; [facility] morphine Assertion Drug allergy Active AZUL Horn Immunizations Immunization Date Given Site Status Last Updated Comments Source Hx hepatitis B vaccine<sup>1</sup> 04/14/2010 completed GE Result Comment: engerix. Migrated from OBS ; Data migrated from [employer] on 10/26/2015. [facility], AZUL Horn, AZUL Hernandez Hx hepatitis B vaccine<sup>2</sup> 04/14/2010 completed GE Result Comment: engerix. Migrated from OBS ; Data migrated from [employer] on 10/26/2015. AZUL Horn,[facility] Hx hepatitis B vaccine<sup>2</sup> 08/14/2009 Left Deltoid completed GE Result Comment: recombivaxhb. Migrated from OBS ; Data migrated from [employer] on 10/26/2015. [facility] Hx hepatitis B vaccine<sup>3</sup> 08/14/2009 Left Deltoid completed GE Result Comment: recombivaxhb. Migrated from OBS ; Data migrated from [employer] on 10/26/2015. AZUL Horn, [place] diphtheria/pertussis, acel/tetanus adult<sup>3</sup> 08/13/2009 completed GE Result Comment: tdap. Migrated from OBS ; Data migrated from [employer] on 10/26/2015. [facility], AZUL Horn, AZUL Hernandez diphtheria/pertussis, acel/tetanus adult<sup>1</sup> 08/13/2009 completed GE Result Comment: tdap. Migrated from OBS ; Data migrated from [employer] on 10/26/2015. AZUL Horn,[facility] tetanus-diphtheria toxoids<sup>4</sup> 08/13/2009 Left Deltoid completed GE Result Comment: tdap. Migrated from OBS VIS: 08-12-08 given August 13, 2009. ; Data migrated from [employer] on 10/26/2015. [facility], AZUL Horn,[facility], AZUL Segovialand pneumococcal 23-valent vaccine 06/15/2006 Right upper arm completed [facility], AZUL Horn,[facility] Results No Data Provided for This Section Pathology Reports No Data Provided for This Section Diagnostic Reports Report Value Date Source Breast Mammo Diag UNI incl CAD MA UNILATERAL RIGHT DIGITAL DIAGNOSTIC MAMMOGRAM WITH CAD: 04/20/2018 CLINICAL: /R92.8 Abnormal Mammogram. Current study was evaluated with a Computer Aided Detection (CAD) system. COMPARISON:Comparison is made to exams dated: 04/09/2018 mammogram - [facility], 2017 mammogram - [facility], 03/30/2015 mammogram - [facility], 02/14/2014 mammogram, and 03/05/2013 mammogram - [facility]. TECHNIQUE: Mammographic views were obtained using [...] is recommended.(04/21/2019) This exam was interpreted at [id number] for RENETTA Hernandez, SL 15. [facility]. Mateo Robert M.D., cm/yolie:04/20/2018 08:13:53 Burnisher(s): Luh Torres [facility] letter sent: BI-RADS 1/2 Mammogram BI-RADS: 2 Benign 04/20/2018 [facility] [place] Breast Mammo Scrn HANK incl CAD MA BILATERAL DIGITAL SCREENING MAMMOGRAM WITH CAD: 04/09/2018 CLINICAL: /Routine. Current study was evaluated with a Computer Aided Detection (CAD) system. COMPARISON:Comparison is made to exams dated: 2017 mammogram - [facility], 03/30/2015 mammogram - [facility], and 02/14/2014 mammogram - [facility]. TECHNIQUE: Mammographic views were obtained using [...] are recommended. This exam was interpreted at [id number] at [facility]. Professional services are provided by the [facility] Division of Diagnostic Imaging. Aleja Carballo M.D. /penrad:04/09/2018 15:44:49 Burnisher(s): Daniella Roman [facility] letter sent: BI-RADS 0 Mammogram BI-RADS: 0 [...] AP views of the right hip. SL: [id number] 04/08/[address] [facility] [place] [place] Breast Mammo Scrn HANK incl CAD MA - BREAST MAMMO SCRN HANK INCL CAD MA BILATERAL DIGITAL SCREENING MAMMOGRAM WITH CAD: 2017 CLINICAL: Routine. Current study was evaluated with a Computer Aided Detection (CAD) system. Comparison is made to exams dated: 03/30/2015 mammogram - [facility], 02/14/2014 mammogram, 03/05/2013 mammogram, 01/17/2012 mammogram, 02/17/2011 mammogram and 01/27/2011 mammogram - [facility]. There are scattered fibroglandular densities in [...] 10:29:24 copy to: Johann Jones M.D., ph: Burnisher: Abiola Hillman, [facility] This exam was dictated and interpreted by [id number] for [facility]. letter sent: Normal exam Mammogram BI-RADS: 2 Benign 2017 [facility] Bone Density Scan Patient Name: MK MERRITT : 1955; Age: 62 years y/o Female MR: [id number] Study: Bone Density Scan 2017 8:32 AM [...] standard deviations below peak bone mass. SL: [id number] 2017 [facility] Digital Mammo Screen Hank MA w [...] mammogram, 01/27/2011 mammogram and 01/24/2011 mammogram - [facility]. There are scattered fibroglandular densities in [...] 15:00:33 copy to: Johann Jones M.D., ph: Burnisher: Luh Torres [facility] This exam was dictated and interpreted by [id number] for [facility]. letter sent: Normal exam Mammogram BI-RADS: 2 [facility]ign 03/30/2015 [facility] [place] Hand AP lateral oblique LEFT HAND RADIOGRAPH 3 VIEWS INDICATION: Injury COMPARISON: None FINDINGS: No fractures or dislocations are seen. The joint spaces are maintained. No osteolytic or sclerotic lesions are visualized. The regional soft tissues are unremarkable. IMPRESSION: No acute bony abnormalities are visualized. SL: 16 09/24/2014 [facility] [place] Digital Mammo Screening Hank MA - DIGITAL MAMMO SCREENING HANK MA BILATERAL DIGITAL SCREENING MAMMOGRAM WITH CAD: 02/14/2014 CLINICAL: Routine. Current study was evaluated with a Computer Aided Detection (CAD) system. Comparison is made to exams dated: 03/05/2013 mammogram, 01/17/2012 mammogram, 02/17/2011 mammogram, 01/27/2011 mammogram, 01/24/2011 mammogram - [facility] and 12/10/2003. Current study contains 4 [...] 14:16:36 copy to: Johann Jones M.D., ph: Burnisher: Lori Olivera, [facility] This exam was dictated and interpreted by [id number] for [facility]. letter sent: Bilateral Benign Mammogram BI-RADS: 2 Benign 02/14/2014 [facility] Pelvis w Pelvis Transvaginal US TRANSABDOMINAL [...] cyst in the left ovary. SL:13 02/14/2014 [facility] Bowel colon Barium enema DOUBLE CONTRAST BARIUM ENEMA. HISTORY: 58-year-old female who underwent a screening colonoscopy which was incomplete. The patient was referred for a barium enema examination 2 complete evaluation of the colon. COMMENT: A double contrast barium and was performed in the usual fashion the fluoroscopy time was 4.5 minutes. 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 Of the bowel [...] enema. SL: 13 Armando Duran M.D. 12/04/2013 [facility] Consultation Notes No Data Provided for This Section Discharge Summaries No Data Provided for This Section History and Physicals No Data Provided for This Section Vital Signs Vital Sign Value Date Comments Source Height 157.48 cm 12/13/2018 [facility] BMI Calculated 30.79 12/13/2018 [facility] Weight 76.364 12/13/2018 [facility] Heart Rate 57 12/13/2018 [facility] Temperature Oral (F) 97.9 F 12/13/2018 [facility] Systolic (mm Hg) 132 12/13/2018 [facility] Diastolic (mm Hg) 86 12/13/2018 [facility] Weight 77.273 06/21/2018 [facility] BMI Calculated 31.16 06/21/2018 [facility] Height 157.48 cm 06/21/2018 [facility] Systolic (mm Hg) 124 06/21/2018 [facility] Diastolic (mm Hg) 74 06/21/2018 [facility] Heart Rate 68 06/21/2018 [facility] Temperature Oral (F) 98.2 F 06/21/2018 [facility] Temperature Oral (F) 98.3 F 06/01/2018 [facility] Heart Rate 61 06/01/2018 [facility] Group [...] Provider ADM Date DC Date Status Source [facility] Outpatient [id number] Manuela Lomelies-Dominguez 02/14/2014 02/15/2014 [facility] [place] [facility] [id number] Demetra Pettit 09/24/2014 09/25/2014 [facility] [place] [facility] [place] [facility] [id number] Manuela Lomelies-Dominguez 03/30/2015 03/31/2015 [facility] [place] Outpatient [id number] MCCRARY WILVER 02/16/[address] [facility] [place] Outpatient [id number] MCCRARY WILVER 07/21/2016 Active [facility] Outpatient [id number] Manuela Donato-Dominguez 2017 01/14/2017 [facility] Outpatient [id number] MCCRARY WILVER 03/31/[address] [facility] [place] Outpatient [id number] JUDY JACQUES 04/08/[address] [facility] [place] Outpatient [id number] DEMETRA WILVER 04/13/2017 Active [facility] [place] [facility] [id number] Mccrary Wilver 04/20/2017 04/21/2017 [facility] [place] Outpatient [id number] DEMETRA WILVER 06/08/[address] [facility] [place] Outpatient [id number] MCCRARY WILVER 10/31/2017 Active [facility] [place] Outpatient [id number] Mccrary Wilver 10/31/2017 11/01/2017 [facility] [place] Phone Message [id number] 01/15/2018 01/17/2018 [facility] [place] Phone Message [id number] 01/24/2018 01/26/2018 [facility] [place] Phone Message [id number] 01/24/2018 01/26/2018 [facility] [place] Phone Message [id number] 01/31/2018 02/02/2018 Medical Group [facility] [place] [facility] [id number] Manuela Lomelies-Dominguez 04/09/2018 04/10/2018 AZUL [facility] Outpatient [facility] [place] [facility] Dia [facility] [id number] Manuela Donato-Dominguez 04/20/2018 04/21/2018 MH [facility] [place] Phone Message [id number] 05/18/2018 05/20/2018 [facility] Outpatient [id number] DEMETRA PETTIT 06/01/2018 [facility] [place] [facility] [id number] Demetra Pettit 06/01/2018 06/02/2018 [facility] [place] Outside Medical Records [id number] 06/06/2018 06/08/2018 [facility] Outpatient [id number] DEMETRA PETTIT 06/21/2018 [facility] [place] Out[facility] [id number] Demetra Pettit 06/21/2018 06/22/2018 [facility] [place] Phone Message [id number] 06/29/2018 07/01/2018 [facility] [place] Phone Message [id number] 07/03/2018 07/05/2018 [facility] Group [facility] [place] Outside Medical Records [id number] 07/04/2018 07/06/2018 [facility] [place] Phone Message [id number] 07/09/2018 07/11/2018 [facility] [place] Phone Message [id number] 07/19/2018 07/21/2018 [facility] [place] Phone Message [id number] 07/19/2018 07/21/2018 [facility] [place] Phone Message [id number] 07/19/2018 07/21/2018 [facility] [place] Phone Message [id number] 08/27/2018 08/29/2018 [facility] [place] Phone Message [id number] 09/05/2018 09/07/2018 [facility] [place] Phone Message [id number] 09/07/2018 09/09/2018 [facility] [place] Phone Message [id number] 10/29/2018 10/31/2018 [facility] [place] Between Visit [id number] 11/14/2018 11/15/2018 Medical Group Outpatient [id number] Demetra Pettit 12/13/2018 [facility] [place] Outpatient [id number] Demetra Pettit 12/13/2018 12/14/2018 Medical Group [facility] [place] Phone Message [id number] 12/21/2018 12/23/2018 Medical Group [facility] [place] Between Visit [id number] 02/05/2019 02/06/2019 Medical Group [facility] [place] Between Visit [id number] 03/12/2019 03/13/2019 Medical Group [facility] [facility] [place] Between Visit [id number] 03/18/2019 03/19/2019 [facility] [place] Between Visit [id number] 03/18/2019 03/19/2019 [facility] Group Procedures Procedure Code Date Perfomer Comments Source Breast biopsy and related procedures [id number] [facility] [place] Cholecystectomy [id number] [facility] [place] Hysterectomy [id number] [facility] [place] Laparoscopic sleeve gastrectomy [id number] [facility] [place] Breast biopsy and related procedures [id number] [facility] [id number] [facility]ste[facility] [id number] [facility] Laparoscopic sleeve gastrectomy [id number] [facility] Tonsillectomy [id number] [facility] Breast biopsy and related procedures [id number] [facility] Cholecystectomy [id number] [facility] Hysterectomy [id number] [facility] Laparoscopic sleeve gastrectomy [id number] [facility] Tonsillectomy [id number] [facility] Breast biopsy and related procedures [id number] [facility] [place] Cholecystectomy [id number] [facility] [place] Hysterectomy [id number] [facility] [place] Laparoscopic sleeve gastrectomy [id number] [facility] [place] Tonsillectomy [id number] [facility] [place] Tonsillectomy [id number] [facility] [place] Assessment and Plan No Data Provided for [...] Counseling No entered on: 06/21/18 06/21/2018 [facility] [place] Social History TypeResponse Smoking Status Former smoker; Exposure to Tobacco Smoke None; Cigarette Smoking Last 365 Days No; Reg Smoking Cessation Counseling No entered on: 06/21/18 06/21/2018 [facility] [place] Social History TypeResponse Smoking Status Former smoker; Exposure to Tobacco Smoke None; Cigarette Smoking Last 365 Days No; Reg Smoking Cessation Counseling No 07/21/2016 [facility] Family History No Data Provided for This Section Advance Directives No Data Provided for This Section Functional Status No Data Provided for This Section
[2019-04-11 08:40] VITALS: BP 109/77
== END | disposition home or self-care (01) ==
LOC: OR 06:15
PROVIDERS: ATTEND Physical Medicine & Rehabilitation Pain Medicine
DX: M54.16 Radiculopathy, lumbar region (principal); G90.522 Complex regional pain syndrome I of left lower limb; Z96.652 Presence of left artificial knee joint; E03.9 Hypothyroidism, unspecified; E78.5 Hyperlipidemia, unspecified; R01.1 Cardiac murmur, unspecified; E11.9 Type 2 diabetes mellitus without complications; K21.9 Gastro-esophageal reflux disease without esophagitis; F32.9 Major depressive disorder, single episode, unspecified; F41.9 Anxiety disorder, unspecified; Z88.6 Allergy status to analgesic agent; Z91.81 History of falling
CPT/HCPCS: 64483; 64484; J1100; J2001 ×2; J2250; J2704; J3010; Q9967; 77003